=== PATIENT | female | born 1985 | race Caucasian/White ===

== ENCOUNTER 2020-10-10 07:55 | Outpatient (CLI) | payer OTHER, SELFPAY ==
--- NOTE | 2020-10-10 08:36 | EST_ITS ---
Patient Info Name: Tran Rice Age: 34 years : 1985 Gender: Female Ht: 67 in Wt: 170 lbs BSA: 1.92 m2 Exam Date: 10/10/2020 9:05 AM Exam Location: [facility] Stress Patient Status: Outpatient Admit Date: 10/10/2020 Staff Ordering Physician: Deni Mccarthy DO Attending Provider: Deni Mccarthy DO Exercise Technologist: Chrissie Childers RDCS Exercise Physician: Deni Mccarthy DO Exam Type: CA stress test treadmill Study Info Indications R07.89 - Other chest pain A treadmill exercise stress test was performed. Summary 1. 1. Negative Travis exercise stress test for ischemic ST changes by ECG criteria. 2. 2. Good functional capacity, achieving 10 METs of workload. 3. 3. Appropriate HR response to exercise. 4. 4. Appropriate HR recovery at 1 minute post exercise. 5. 5. No imaging with stress testing. 6. 6. Patient informed of the above results. Protocol: Travis Stress ECG Details Stage: REST Duration (min): 4 min : 53 sec Speed (mph): 0.0 Grade (%): 0 HR (bpm): 63 SBP (mmHg): 115 DBP (mmHg): 69 METS: --- Stage: REST Duration (min): 9 min : 50 sec Speed (mph): 0.0 Grade (%): 0 HR (bpm): 78 SBP (mmHg): 115 DBP (mmHg): 69 METS: --- Stage: STAGE 1 Duration (min): 1 min : 0 sec Speed (mph): 1.7 Grade (%): 10 HR (bpm): 110 SBP (mmHg): 115 DBP (mmHg): 69 METS: --- Stage: STAGE 1 Duration (min): 2 min : 0 sec Speed (mph): 1.7 Grade (%): 10 HR (bpm): 108 SBP (mmHg): 115 DBP (mmHg): 69 METS: --- Stage: STAGE 1 Duration (min): 3 min : 0 sec Speed (mph): 1.7 Grade (%): 10 HR (bpm): 110 SBP (mmHg): 145 DBP (mmHg): 84 METS: --- Stage: STAGE 2 Duration (min): 1 min : 0 sec Speed (mph): 2.5 Grade (%): 12 HR (bpm): 122 SBP (mmHg): 145 DBP (mmHg): 84 METS: --- Stage: STAGE 2 Duration (min): 2 min : 0 sec Speed (mph): 2.5 Grade (%): 12 HR (bpm): 128 SBP (mmHg): 138 DBP (mmHg): 57 METS: --- Stage: STAGE 2 Duration (min): 3 min : 0 sec Speed (mph): 2.5 Grade (%): 12 HR (bpm): 133 SBP (mmHg): 138 DBP (mmHg): 57 METS: --- Stage: STAGE 3 Duration (min): 1 min : 0 sec Speed (mph): 3.4 Grade (%): 14 HR (bpm): 147 SBP (mmHg): 157 DBP (mmHg): 61 METS: --- Stage: STAGE 3 Duration (min): 2 min : 0 sec Speed (mph): 3.4 Grade (%): 14 HR (bpm): 155 SBP (mmHg): 157 DBP (mmHg): 61 METS: --- Stage: STAGE 3 Duration (min): 3 min : 0 sec Speed (mph): 3.4 Grade (%): 14 HR (bpm): 160 SBP (mmHg): 136 DBP (mmHg): 73 METS: --- Stage: RECOVERY Duration (min): 0 min : 59 sec Speed (mph): 0.0 Grade (%): 0 HR (bpm): 121 SBP (mmHg): 139 DBP (mmHg): 66 METS: --- Stage: RECOVERY Duration (min): 1 min : 59 sec Speed (mph): 0.
== END 2020-10-10 07:56 | disposition home or self-care (01) ==
PROVIDERS: PCP Physician Assistant; Visit Provider Internal Medicine Cardiovascular Disease
DX: R07.89 Other chest pain (principal)
CPT/HCPCS: 93017

== ENCOUNTER 2022-09-21 19:22 | Emergency (ER) | payer OTHER, SELFPAY ==
--- NOTE | ~2022-09-21 | XR_ITS ---
EXAM: [id number] DATE: 09/21/2022 19:51 HISTORY: rt lateral knee pain x 10 days ? etiology . COMPARISON: None available. FINDINGS: Normal mineralization. No fracture or dislocation. No lytic or blastic lesion. Joint space s are maintained. No erosion or periosteal change. Soft tissues within normal limits. Small right kne e joint effusion. IMPRESSION: No acute osseous finding in the right knee. Reviewed, dictated and finalized at location K.
[2022-09-21 19:32] VITALS: BP 112/70; PULSE 68; RESP 16; TEMP 37.3; O2SAT 100
--- NOTE | 2022-09-21 20:20 | ED.GENADULT ---
HPI - General Adult General Chief complaint: Extremity Injury, Lower Stated complaint: Right Knee Pain Source: patient Mode of arrival: ambulatory Limitations: no limitations History of Present Illness HPI narrative: Patient presents for evaluation of right knee pain since 09/12/2022. She cannot identify any precipitating cause or injury. Pain is constant worse with certain movements. She feels like something is being pulled in the affected area. She rates her pain 10/10 severity. She has been taking ibuprofen 400mg for her symptoms. She does get some relief from her pain with medication. Pain is primarily in anterolateral aspect of the knee. Related Data Home Medications Medication Instructions Recorded Confirmed escitalopram oxalate 20 mg tablet 20 mg DAILY 09/21/22 09/21/22 levonorgestrel 20.4 mcg/24 hrs (8 1 device intrauterine ONCE 09/21/22 09/21/22 yrs) 52 mg intrauterine device (Liletta) Allergies Allergy/AdvReac Type Severity Reaction Status Date / Time hydrocodone Allergy Unknown Itching Verified 09/21/22 19:31 Review of Systems Review of Systems: CONSTITUTIONAL: Denies fever, chills, or sweats. EYES: Denies visual changes, redness, or discharge. ENT: Denies rhinorrhea, congestion, sore throat, or otalgia. CARDIOVASCULAR: Denies chest pain, palpitations, or edema. RESPIRATORY: Denies cough or dyspnea. GASTROINTESTINAL: Denies abdominal pain, nausea, vomiting, or diarrhea. GENITOURINARY: Denies dysuria or hematuria. SKIN: Denies rash or itching. MUSCULOSKELETAL: Reports right knee pain. Denies pain otherwise. NEUROLOGIC: Denies headache, numbness, dizziness, or weakness. PSYCHIATRIC: Denies anxiety or depression. [facility] Past Medical History Medical History Anemia DUGAN (dyspnea on exertion) Essential hypertension Surgical History Surgical History History of tonsillectomy Family History Family History Mother Family history of migraine headaches Hypertension Father Family history of hepatitis Other Diabetes mellitus Family history of cardiovascular disease Family history of cataracts Family history of obesity Social History Social History (Updated 09/21/22 @ 20:23 by Vamshi Estrada, [facility], ) Smoking status: Never smoker Alcohol intake: never Substance use: never Living arrangements: with family Gender identity (if verbalized by the patient): Female Sexual Orientation (if Verbalized by the Patient): Straight or Heterosexual Spiritual care concerns: No Exam Narrative: GENERAL: Well-appearing, well-nourished, and in no acute distress. HEAD: Normocephalic, atraumatic. EYES: PERRLA and EOMI. ENT: Nares clear, no rhinorrhea or epistaxis. Mucous membranes moist. Oropharynx without tonsillar hypertrophy exudate or other lesions. Bilateral TMs pearly medeiros nonbulging NECK: Supple. No adenopathy or masses. No carotid bruits or JVD CHEST: Clear to auscultation. No respiratory distress. No wheezes rales or rhonchi HEART: Regular rate and rhythm. No murmur heard. Normal peripheral pulses. ABDOMEN: Soft, nontender, nondistended, normal active bowel sounds. EXTREMITIES: Tenderness noted in anterolateral aspect of right knee. No crepitus or deformity. Exhibits decreased active ROM 2/2 pain. SKIN: Warm, dry, no rash. NEURO: No focal deficits. Alert and oriented x3. PSYCH: Normal mood and affect. Course Course Emergency Course: This is a 36-year-old female who presented for evaluation of right knee pain. X-ray was negative for fracture. Exam is consistent with strain. Placed in knee immobilizer. Advised on orthopedic follow-up. Advised on RICE therapy. NSAIDs for pain. She can increase ibuprofen to 800 mg p.o. t.i.d. with food. Go to ER for intractable pain. Pt
== END 2022-09-21 20:33 | disposition home or self-care (01) ==
PROVIDERS: Emergency Provider Nurse Practitioner; PCP Nurse Practitioner Family
DX: S86.911A Strain of unspecified muscle(s) and tendon(s) at lower leg level, right leg, initial encounter (principal); X58.XXXA Exposure to other specified factors, initial encounter; I10 Essential (primary) hypertension
CPT/HCPCS: 73560; 99213; G0463; L1830

== ENCOUNTER 2022-11-09 03:56 | Day surgery (SDC) | payer OTHER, SELFPAY ==
[2022-11-01 08:41] VITALS: BMI 28.4
--- NOTE | 2022-11-01 08:48 | PC.NURSE ---
Report to the Outpatient Waiting Room, entrance under the green pavilion located off [facility], at time _0930_ on date __11/09/22. Planned Procedure Time: 1130. Time changes happen often and if your time is changed the preop area will call you the afternoon before. - You and your visitor will be asked to self-screen and do not enter if you have any COVID symptoms. - A mask is optional within the hospital at this time. Patients may have clear liquids (water, carbonated beverages, clear teas, apple juice) until 3 hours prior to surgery with a maximum of 20 ounces. - No food from midnight until time of surgery - Infants may have breast milk until 4 hours before surgery, formula 6 hours prior to surgery. - Children will be allowed to drink immediately following surgery. If applicable, please bring a bottle or sippy cup to assist with drinking. Juice, water, soda, and popsicles are readily available. For infants on formula, please bring formula the day of surgery. Pacifiers are allowed. Take the following medications with a SIP of water the morning of surgery: ESCITALOPRAM DO NOT STOP ANY OF YOUR OTHER PRESCRIPTION MEDICATIONS PRIOR TO SURGERY ?EXCEPT THE FOLLOWING Medications to discontinue per physician NONE Date to take last dose Please no make-up, nail khmer, hairspray, perfume, deodorant, or body powder the day of surgery. No jewelry (including any body piercings) or valuables the day of surgery, leave them at home. Please take a shower or bath the night before, or the morning of, surgery with an antibacterial soap. Wear comfortable, loose fitting clothing. Children are encouraged to wear pajamas. - Jewelry must be removed prior to entering the operating room. Rings and piercings that are not removed may be cut off. - The hospital will not accept responsibility for valuables. - Please leave all valuables, including medications, at home the day of surgery. If you are going home after surgery, a licensed bookmobile driver must drive you home. - NO public transportation without another adult if you receive anesthesia. - We recommend that an adult stay with you for 24 hours following discharge. - We also recommend that you do not drive, make important decision, drink alcoholic beverages, or take any drugs that were not prescribed by your health care provider for at least 24 hours after your discharge time. For Pediatric surgeries, we recommend two adults accompany the child home. Follow any additional instructions given to you from your surgeon. If you or anyone in your household have experienced Covid symptoms in the past week, please notify your surgeon or the nurse liaison at the phone number below for possible testing. Telephone instructions given to PATIENT_and asked if any additional questions and then verbalized understanding. Patient advised to call surgeon office or pre surgery nurse liaison [phone] if any additional questions.
[2022-11-09] VITALS (11 sets, daily range): BP systolic 100–118; BP diastolic 64–87; PULSE 63–88; RESP 12–18; TEMP 36.3–36.7; O2SAT 94–100; BMI 28.3
--- NOTE | 2022-11-09 08:27 | WPDANESEPPF ---
Anes - Initial Pre Proc Eval Procedure: Operation Date: 11/09/22 11:30 Proposed Procedures p Right Knee Arthroscopy - Tariq Khun MD Date/Time: 11/09/22 08:27 Surgeon: Tariq Kuhn MD Pre Op Diagnosis: Rt Knee Lateral Meniscus Tear Patient Data Age: 36 Gender: F Height: 1.68 m Weight: 80 kg Allergies Allergy/AdvReac Type Severity Reaction Status Date / Time hydrocodone Allergy Unknown Itching Verified 11/09/22 10:22 Home Medications Medication Instructions Recorded Confirmed Type escitalopram oxalate 20 mg tablet 20 mg PO DAILY 09/21/22 11/09/22 History levonorgestrel 20.4 mcg/24 hrs (8 1 device intrauterine ONCE 09/21/22 11/03/22 History yrs) 52 mg intrauterine device (Liletta) tramadol 50 mg tablet 50 mg PO BID PRN pain #20 tabs 11/09/22 Rx Patient hx anesthesia problems: none Family hx anesthesia problems: none Results Review: All pre-operative results and documents have been reviewed as part of the pre-operative evaluation. [facility] Past Medical History Medical History (Updated 11/09/22 @ 08:27 by Pipe Cespedes DO) Anemia Anxiety DUGAN (dyspnea on exertion) Essential hypertension Surgical History Surgical History History of tonsillectomy Family History Family History Mother Family history of migraine headaches Hypertension Father Family history of hepatitis Other Diabetes mellitus Family history of cardiovascular disease Family history of cataracts Family history of obesity Social History Social History (Updated 11/03/22 @ 13:40 by April Randle MA) Smoking packs per day: 0.5 Smoking cigarettes per day: 10.0 Years smoked: 2 Smoking pack-years: 1.00 Smoking status: Never smoker Tobacco type: cigarettes Alcohol intake: current Alcohol use details: 2 PER MONTH Substance use: never Last use: 2011 Living arrangements: with family Gender identity (if verbalized by the patient): Female Sexual Orientation (if Verbalized by the Patient): Straight or Heterosexual Spiritual care concerns: No Anes - Eval Final PreProcedure Day of Procedure 11/09/22 08:27 Patient weight: overweight Heart: regular rate and rhythm Lungs: clear to auscultation Airway: Mallampati scale class II Neurological: alert and oriented Last oral intake: >/= 8 hours ASA classification: II Emergent: no Anesthetic plan: proceed Anesthesia type and monitoring: general LMA and standard monitoring Results Review: All pre-operative results and documents have been reviewed as part of the pre-operative evaluation. Informed Consent: The patient's anesthetic plan and its attendant risks and benefits were discussed with the patient/family/POA. Questions were solicited and answers provided to the satisfaction of the patient/family/POA.
--- NOTE | 2022-11-09 08:38 | WPDHPUPDATE1 ---
History and Physical Update Update Date/Time: 11/09/22 08:38 History and Physical has been reviewed, including an updated exam of the patient. There are NO changes in the patient's condition. Risks, benefits, and alternatives have been discussed and questions answered. Patient agrees to proceed with procedure.
[2022-11-09] MEDS: LACTATED RINGERS 1,000 ML 30 ML IV CONT ×2 (10:00→13:35)
[2022-11-09] MEDS: ACETAMINOPHEN 500 MG TABLET 1000 MG PO (10:04)
--- NOTE | 2022-11-09 10:40 | SUR.PREOP ---
1040- Notified Dr. Kuhn patient refused pre op dose of PO celebrex because she cannot swallow pill.
[2022-11-09] MEDS: ceFAZolin 2 GM/D5W 50 ML 2 GM/50 ML BAG IVPB (11:03)
[2022-11-09] MEDS: BUPivacaine HCL 0.5% 10 ML AMP 30 ML INFILTRATE (11:32)
--- NOTE | 2022-11-09 11:56 | PM.OP ---
Procedure Note - Brief Procedure Note - Brief Date of procedure: 11/09/22 Rt Knee Lateral Meniscus Tear Surgeon: Tariq Kuhn MD
--- NOTE | 2022-11-09 11:58 | W.PM.PROC2 ---
Procedure Note - Detailed Date of Procedure 11/09/22 Pre-op Diagnosis Rt Knee Lateral Meniscus Tear Post-op Diagnosis Same Procedure Performed RIGHT KNEE SCOPE Surgeon Tariq Kuhn MD Anesthesia General Description of Procedure PATIENT WAS TAKEN TO THE OR. RIGHT LEG WAS PREPPED AND DRAPED STERILE. TROCARS WERE PLACED IN THE USUAL FASHION. CAMERA WAS INTRODUCED. THERE WAS NO CHONDROMALACIA TO THE PATELLA FEMORAL JOINT. THERE WAS A LOT OF SYNOVITIS IN ALL COMPARTMENTS. THE MEDIAL COMPARTMENT SHOWED NO CHONDROMALACIA TO THE MEDIAL FEMORAL CONDYLE. THERE WAS A NO TEAR TO THE MEDIAL MENISCUS. THE ACL WAS INTACT. THE LATERAL COMPARTMENT HAD ABUNDANT SYNOVITIS. SYNOVECTOMY WAS PREFORMED. THE LATERAL MENISCUS WAS DISCOID AND TORN AT THE ANTERIOR HORN AND MID HORN. THERE WAS ALSO A TEAR TO THE POSTERIOR HORN. THE TEAR WAS RESECTED. SAUCERIZATION WAS PREFORMED TO THE DISCOID MENISCUS. THE LATERAL COMPARTMENT HAD NO CHONDROMALACIA AT THE LATERAL PLATEAU OR LATERAL FEMORAL CONDYLE. A SYNOVECTOMY WAS PREFORMED WELL. SYNOVECTOMY WAS PREFORMED IN THE SUPERIOR MEDIAL COMPARTMENT. THE WOUNDS WERE APPROXIMATED WITH 4.0 NYLON. STERILE DRESSING WAS APPLIED. PATIENT WAS EXTUBATED. Estimated Blood Loss 5 Complications No immediate complications Condition Stable Disposition PACU
[2022-11-09] MEDS: fentaNYL CITRATE INJ (*CRX) 100 MCG/2 ML VIAL 25 MCG IV PUSH ×8 (12:12→12:32)
[2022-11-09] MEDS: KETOROLAC 30 MG/ML VIAL (*BKC) IV PUSH (12:18)
[2022-11-09] MEDS: HYDROmorphone HCL INJ (*CRX) 1 MG/ML SYR 0.5 MG IV PUSH ×4 (12:40→12:55)
[2022-11-09] MEDS: ONDANSETRON INJ 4 MG/2 ML VIAL IV PUSH (13:36)
== END 2022-11-09 15:00 | disposition home or self-care (01) ==
PROVIDERS: PCP Nurse Practitioner Family; Visit Provider Orthopaedic Surgery
PROC: (CPT 29870; principal; 2022-11-09 11:30)
DX: S83.281A Other tear of lateral meniscus, current injury, right knee, initial encounter (principal); Q68.6 Discoid meniscus; M65.861 Other synovitis and tenosynovitis, right lower leg; X58.XXXA Exposure to other specified factors, initial encounter; F41.9 Anxiety disorder, unspecified
CPT/HCPCS: 29881; 29876; A9270; J0690; J1100; J1170; J1885; J2250; J2405; J2704; J3010; J7120

== ENCOUNTER 2024-08-01 10:02 | Outpatient (CLI) | payer OTHER, SELFPAY ==
--- OUTSIDE RECORDS SUMMARY | 2024-08-01 11:14 | XMS_ITS | Clinical Summary ---
Author Organization [facility] Address [address] [place] [address] Care Team Providers Care Grain Processor Name Role Phone Pema Patel Primary Care Provider [phone]- [phone] Allergies No known active allergies Medications escitalopram (LEXAPRO) 20 mg tablet Take 1 tablet (20 mg total) by mouth daily 30 tablet 6 2 Active meloxicam (MOBIC) 15 mg tablet Take 1 tablet (15 mg total) by mouth daily 30 tablet 1 3 Active Additional Information Patient not taking.Reported on 05/25/2023 fluticasone propionate (FLONASE) 50 mcg/actuation nasal spray Administer 2 sprays into each nostril daily 1 each 3 4 Active cetirizine (ZyrTEC) 10 mg tablet Take 1 tablet (10 mg total) by mouth daily as needed for allergies 90 tablet 1 4 Active meclizine (ANTIVERT) 12.5 mg tablet Take 1 tablet (12.5 mg total) by mouth 3 (three) times a day as needed for dizziness 45 tablet 4 Active Active Problems Problem Noted Date Diagnosed Date Vertigo 06/05/2023 Assessment & Plan (06/05/2023 10:32 PM SENIOR CLINICAL DATA COORDINATOR): Patient's symptoms seem most consistent with vertigo. Has been working with Cardiology and so far that workup has been completely negative. They are suggesting a tilt study. Her symptoms seem to be spinning dizziness and just feeling like quick movements trigger the symptoms. Neurologically her exam is essentially stable. Recommend meclizine p.r.n. for the dizziness. Start antihistamine, Flonase and mucinex prn. Will start physical therapy for vestibular therapy. Reassess in 4-6 weeks if symptoms persist may need to see neurologist. Diabetes mellitus screening 06/05/2023 Assessment & Plan (06/05/2023 10:31 PM SENIOR CLINICAL DATA COORDINATOR): Check labs Moderate episode of recurrent major depressive d isorder 06/05/2023 Assessment & Plan (06/05/2023 10:25 PM SENIOR CLINICAL DATA COORDINATOR): Continue Lexapro 20 Spotting during 04/11/2023 Vaginal discharge 04/11/2023 Arthralgia of right knee 03/07/2023 Rash 11/15/2022 Vitamin B12 deficiency (non anemic) 08/02/2022 Assessment & Plan (06/05/2023 10:13 PM SENIOR CLINICAL DATA COORDINATOR): Supplement Electrocardiogram abnormal 07/25/2022 Essential hypertension 07/25/2022 Assessment & Plan (06/05/2023 10:13 PM SENIOR CLINICAL DATA COORDINATOR): Bp is stable/in acceptable range for any co-morbidities. Encouraged to limit sodium intake and exercise for weight control. Has been managed without medication. Continue to monitor closely Generalized anxiety disorder 07/25/2022 Intermittent palpitations 07/25/2022 Vitamin D deficiency 07/25/2022 Assessment & Plan (06/05/2023 10:13 PM SENIOR CLINICAL DATA COORDINATOR): Supplement Acute upper respiratory infection 06/24/2022 Positive antinuclear antibody 06/06/2022 Cobalamin deficiency 06/06/2022 Leukopenia 05/26/2022 Flu vaccine need 03/14/2022 Assessment & Plan (03/14/2022 3:19 PM SENIOR CLINICAL DATA COORDINATOR): Updated in the office today Easy bruising 01/14/2022 Assessment & Plan (01/14/2022 9:07 PM CDT): Patient notes easy bruising but is not actively bleeding. Will go ahead and check labs to rule out any underlying bleeding concerns. Because location and with her having a daughter who has carried a little bit more with special needs I still wonder if there is some impact that is happening to create these bruising. She will be a little bit more alert to see if this happens. If her symptoms persist may need additional workup. IUD (intrauterine device) in place 12/28/2021 Overview (12/28/2021): Lyletta 07/2021 Assessment & Plan (01/14/2022 9:05 PM CDT): IUD in place. She is really having very minimal bleeding with her IUD. Suspected UTI 12/13/2021 Assessment & Plan (12/13/2021 10:51 PM CDT): Pt presents with dysuria. Urine dip completed. Send urine culture. Antibiotic to pharmacy. Reviewed bladder care. Abdominal pain 11/30/2021 Assessment & Plan (11/30/2021 5:18 PM CDT): We discussed potential etiologies. Advised further evaluation with labs, will notify pt of results of these as they are available. Advised reporting to the er if symptoms worsen. Anxiety 10/25/2021 Assessment & Plan (03/14/2022 3:17 PM SENIOR CLINICAL DATA COORDINATOR): Continue with Lexapro as symptoms are stable. Assessment & Plan (12/13/2021 10:51 PM CDT): Continue Lexapro 20. Refills sent to pharmacy Assessment & Plan (11/10/2021 12:41 PM CDT): The patient is noting improvement with Lexapro 10 mg. Will increase to 20 from or affect. She is tolerating without any side effects. Follow-up in 6 weeks to reassess or sooner if she has increased symptoms or problems or concerns. Assessment & Plan (10/25/2021 11:08 PM CDT): Discussed treatment options as her symptoms seem very consistent with anxiety. Has done well with Paxil in the past. Willing to try Lexapro 10 mg. Reviewed risks benefits alternatives side effects and proper use. All questions were answered. Will have her follow-up in 4-6 weeks to reassess. She is to follow-up sooner if she has increased symptoms or any suicidal or homicidal thoughts. Syncope 08/15/2021 Assessment & Plan (03/14/2022 3:17 PM SENIOR CLINICAL DATA COORDINATOR): Patient still has had presyncopal type symptoms. Was referred to residential energy auditor at her last visit but was not able to keep that appointment up in [facility] due to stressors at home. Will make referral to the [facility] Cardiology for further evaluation. Assessment & Plan (08/15/2021 2:51 PM CDT): Patient has been experiencing what may be syncopal or presyncopal events. She had stress test with Cardiology within the year but it did relieve your reveal much. The syncopal type episodes have happened after that evaluation. Her mother is having similar symptoms. Recommend further evaluation. She would like to follow-up with a residential energy auditor that her mother is seen up in [facility]. Provided a referral. Patient is going to reach out to make the appointment and contact us if further assistance is needed. If she has chest pain actually has a syncopal episode or increase in the symptoms she is to consider the ER. Annual physical exam 08/15/2021 Assessment & Plan (08/15/2021 2:51 PM CDT): Encouraged healthy lifestyle, good nutrition and exercise. Encouraged Calcium and Vitamin D and weight bearing exercise for bone health. Reviewed immunizations Reviewed age appropirate screenings. BMI 29.0-29.9,adult 08/14/2021 Assessment & Plan (06/05/2023 10:11 PM SENIOR CLINICAL DATA COORDINATOR): Weight/BMI is in healthy range. Continue healthy lifestyle to maintain. Assessment & Plan (03/14/2022 3:16 PM SENIOR CLINICAL DATA COORDINATOR): Weight/BMI is in healthy range. Continue healthy lifestyle to maintain. Assessment & Plan (08/14/2021 8:24 AM CDT): Weight/BMI is in healthy range. Continue healthy lifestyle to maintain. Chest pain 09/28/2020 Assessment & Plan (09/28/2020 11:21 PM CDT): EKG in the office was normal. She is not having acute chest pain. Advised if she does have acute CP/sxs she is to go to the ER> Will refer to Cardio for further evaluation/workup as needed. Dysuria 09/28/2020 Assessment & Plan (09/28/2020 11:21 PM CDT): Pt presents with dysuria. Urine dip completed. Send urine culture. Antibiotic to pharmacy. Diflucan for prophylaxis Reviewed bladder care. Fatigue 08/23/2020 Assessment & Plan (06/05/2023 10:11 PM SENIOR CLINICAL DATA COORDINATOR): Probably multifactorial. Check labs and followup to re-evaluate Assessment & Plan (01/14/2022 9:05 PM CDT): Probably multifactorial. Check labs and followup to re-evaluate Assessment & Plan (08/23/2020 7:47 PM CDT): Probably multifactorial. Check labs and followup to re-evaluate Chronic nonintractable headache 08/23/2020 Assessment & Plan (12/28/2020 5:33 PM CDT): Better since IUD removed. Wants to monitor Assessment & Plan (08/23/2020 7:47 PM CDT): Patient has appoint with neurologist in the next few weeks. Will await his recommendations. Polyhydramnios, antepartum complication 02/18/20 Supervision of high-risk of young nalinipeña igravida 10/05/2017 Overview (09/10/2021): Dating: LMP of 06/18/17 = 12w3d u/s with CRL of 5.93cm (within 2 days of LMP date)-->[facility]RA 03/25/18 A+/Imm/-/- HIV NR Antibody screen: negative H/H/P: 13.1/39.7/346 (09/03/17) CT/GC: neg/neg History of placenta abruption 10/04/2017 Overview (09/10/2021): G2 at 35 weeks with preeclampsia History of pre-eclampsia 10/04/2017 Overview (09/10/2021): G2 cystic hygroma 10/03/2017 Chlamydial infection 08/22/2017 Hypoglycemia 02/03/2012 Overview (08/06/2016): Hypoglycemia, unspecified Assessment & Plan (06/05/2023 10:11 PM SENIOR CLINICAL DATA COORDINATOR): Stressed importance of eating small meals multiple times a day to avoid low blood sugar Assessment & Plan (08/15/2021 2:50 PM CDT): Patient with a low A1c. She could be having hypoglycemic events. Encourage small meals all throughout the day and if she has 1 of these episodic events she is to check her blood sugar and blood pressure to see if there is any correlation. Assessment & Plan (08/23/2020 7:47 PM CDT): Encouraged to eating small meals. Recheck labs. Resolved Problems Problem Noted Date Diagnosed Date Resolved Date Positive depression screening 05/25/2023 06/05/2023 BMI 25.0-25.9,adult 12/13/2021 03/14/20 22 Assessment & Plan (01/14/2022 9:05 PM CDT): Weight/BMI is in healthy range. Continue healthy lifestyle to maintain. Assessment & Plan (12/13/2021 10:52 PM CDT): Weight/BMI is in healthy range. Continue healthy lifestyle to maintain. Lower respiratory infection 09/10/2021 03/14/2022 Assessment & Plan (09/10/2021 12:12 PM CDT): Will initiate doxycycline, proventil hfa q6h as needed. Advised patient to report to the er if symptoms are worsening. Cough 07/14/2021 08/15/2021 Assessment & Plan (07/14/2021 7:23 AM CDT): Patient to presume positive COVID/FLU until results are available and plan to self isolate for up to 10 days from the onset of sxs. Check COVID/FLU test thru [facility] collection site in [place]. Let pt know the newest CDC recommendations are as follows: If positive COVID: Stay home for at least 5 days and isolate from others in your home. Wear a well-fitted mask if you must be around others in your home. End isolation after 5 full days if you are fever-free for 24 hours (without the use of fever-reducing medication) and your symptoms are improving. Wear a well-fitted mask for 10 full days any time you are around others inside your home or in public. Do not go to places where you are unable to wear a mask. Avoid travel Avoid being around people who are at high risk Consider mAb or there appropriate meds depending on risk factors. If positive FLU, complete 5 day quarantine and be fever free for 24 hours without meds and may consider antiviral based on timing and risk factors. If negative, treat sxs and observe. Treat sxs with Tylenol, Cough/cold medication otc and add VitD 5,000IU daily and Zinc 50mg daily. I will also send Bethel Fraga for cough Monitor sxs and call or go to the ER if has any of the following: --trouble breathing --persistent pain or pressure in the chest --new confusion --inability to wake or stay awake -- bluish lips or face Hematuria 12/28/2020 08/15/2021 Assessment & Plan (12/28/2020 5:32 PM CDT): History of hematuria with last visit. Recheck today and if persists, may need further evaluation. Stress 12/28/2020 08/15/2021 Assessment & Plan (12/28/2020 5:34 PM CDT): Discussed treatment options including medication, behavioral interventions and counseling. She states she is doing ok right now and wants to avoid medications at this point. Call if needs assistance. BMI 27.0-27.9,adult 12/23/2020 08/15/19 22 Assessment & Plan (12/23/2020 8:41 AM CDT): Weight/BMI is in healthy range. Continue healthy lifestyle to maintain. Other chest pain 09/19/2020 09/28/2020 Annual physical exam 08/23/2020 021 Assessment & Plan (08/23/2020 7:47 PM CDT): Encouraged healthy lifestyle, good nutrition and exercise. Encouraged Calcium and Vitamin D and weight bearing exercise for bone health. Reviewed immunizations Reviewed age appropirate screenings. BMI 28.0-28.9,adult 08/20/2020 12/24/19 Assessment & Plan (09/19/2020 9:23 AM CDT): Weight/BMI is in healthy range. Continue healthy lifestyle to maintain. Assessment & Plan (08/20/2020 10:00 AM CDT): Weight/BMI is in healthy range. Continue healthy lifestyle to maintain. Immunizations Immunization Administration Dates Next Due Hep B Vaccine 07/04/2015 Hep B, Adolescent or Pediatric 02/15/2002 Hep B, Unspecified 02/16/2010,09/12/2000, 998 Influenza, Quadrivalent, Spl it, Intramuscular 01/16/2016 Influenza, Quadrivalent, Spl it, Preservative Free, Intramuscular 03/11/2022,01/20/2018 Influenza, Trivalent, IM (MDV) 07/04/2015,2010 Influenza, Unspecified 05/25/2023(Deferr ed: Patient Refused),02/01/2022,07/14/2021(Deferre d: Patient Refused),05/02/2020(Deferred: Patient Refused),01/31/2020(Deferred: Patient Refused) Tdap 01/20/2018,02/12/2010 Surgical History Surgery Date Site/Laterality Comments TONSILLECTOMY 1997 Tonsillectomy OTHER SURGICAL HISTORY 2007 : 8 hr labor KNEE ARTHROSCOPY 11/09/2022 Right Medical History Medical History Date Comments Hx Other Medical hypoglycemia Hx Other Medical vitamin d defic ency Hx Other Medical iron deficency Hx Other Medical 2007 ; Outc ome: 41 week 7 lb(s) 11 oz Male Anemia Anemia Anxiety Asthma Hypertension Family History Medical History Relation Name Comments Coronary artery disease Father Andreina nary artery disease; Other Father hepatitis; Hypertension Mother Hypertension; Thyroid disease Mother Thyroid diso rder; /Thyroid disease; Blood Clot Other Diabetes Paternal Grandmother Diabete s mellitus; Relation Name Status Comments Father Alive Mother Alive Other Paternal Grandmother Social History Tobacco Use Types Packs/Day Years Used Date Smoking Tobacco: Never Smokeless Tobacco: Never Alcohol Use Standard Drinks/Week Comments Yes 0 (1 standard drink = 0.6 oz pur e alcohol) AUDIT-C Answer Date Recorded Q1: How often do you have a drink containing alc ohol? Monthly or less 05/25/2023 Q2: How many drinks containi ng alcohol do you have on a typical day when you are drinking? 1 or 2 05/25/2023 Q3: How often do you have si x or more drinks on one occasion? 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 Not on file Not on file Not on file Obstetrics History Last Filed Vital Signs Vital Sign Reading Time Taken Comments Blood Pressure 122/78 05/25/2023 9:24 AM SENIOR CLINICAL DATA COORDINATOR Pulse 68 05/25/2023 9:24 AM SENIOR CLINICAL DATA COORDINATOR Temperature 36.9 C (98.5 F) 05/25/2023 9:24 AM SENIOR CLINICAL DATA COORDINATOR Respiratory Rate 18 12/07/2021 4:41 PM CDT Oxygen Saturation 99% 05/25/2023 9:24 AM SENIOR CLINICAL DATA COORDINATOR Inhaled Oxygen Concentration - - Weight 82.1 kg (181 lb) 05/25/2023 9:24 AM SENIOR CLINICAL DATA COORDINATOR Height 167.6 cm (5' 6 ) 05/25/2023 9:24 AM SENIOR CLINICAL DATA COORDINATOR Body Mass Index 29.21 05/25/2023 9:24 AM SENIOR CLINICAL DATA COORDINATOR Plan of Treatment Health Maintenance Due Date Last Done Comments Cervical Cancer Screening 1987 Varicella Vaccines (1 of 2 - 13+ 2-dose series) 11/27/2000 Regular Well Visit/Exam 18-64 08/14/2022 08/14/2021, 08/20/2020 Influenza Vaccine (#1) 2024 , 02/01/2022, 01/20/2018, Additional history exists Depression Screening 05/25/2024 05/25/2023, 05/25/2023, 12/28/2021, Additional history exists DTaP/Tdap/Td Vaccine (3 - Td or Tdap) 01/21/2028 01/20/2018, 02/12/2010 Hepatitis B Screening Completed 07/04/2015 , 02/16/2010, 02/15/2002, Additional history exists Hepatitis C Screening Completed 08/17/2017 HPV Vaccines Aged Out No longer eligi ble based on patient's age to complete this topic Pneumococcal vaccine <65 Aged Out No longer eligible based on patient's age to complete this topic Procedures Procedure Name Priority Date/Time Associated Diagnosis Comments HEPATITIS C ANTIBODY Routine Gen Lab 08/17/2017 10:28 AM CDT from Last 3 Months or Most Recently Relevant to Health Maintenance Results * Hepatitis C antibody (08/17/2017 10:28 AM CDT) Hep C Ab Nonreactive Nonreactive CORINNE MCDOWELL Comment: Interpretive Data Positive and greyzone results should be confirmed by a molecular method. If positive or greyzone, a second separately collected sample should be submitted for Hepatitis C Virus RNA. Detection and Quantitation by Real-Time Reverse Egg Pasteurizer-PCR.Current Interpretive data was last revised on 2016. Blood specimen (specimen) 08/17/2017 10:28 AM CDT 08/17/2017 11:38 AM CDT Narrative CORINNE SARGENT - 08/17/2017 2:17 PM CDT Cici Levine NP LAB MICROBIOLOGY - GENERAL ORDERABLES Edited Result - Final [facility] Department [place] [address] from Last 3 Months or Most Recently Relevant to Health Maintenance Insurance Care Teams Grain Processor Relationship Specialty Start Date End Date Pema Patel PA [address] [place] [address] PCP - General Internal Medicine 05/25/23
--- OUTSIDE RECORDS SUMMARY | 2024-08-01 11:14 | XMS_ITS | Referral Summary ---
Author Organization [facility] Address [address] [place] [address] Care Team Providers Care Cafe Operator Name Role Phone Pema Patel Primary Care Provider +1- [phone] Allergies No known active allergies Medications escitalopram [...] 06/05/2023 Assessment & Plan (06/05/2023 10:32 PM CHANGE MANAGEMENT FACILITATOR): Patient's symptoms seem most consistent with vertigo. [...] 06/05/2023 Assessment & Plan (06/05/2023 10:31 PM CHANGE MANAGEMENT FACILITATOR): Check labs Moderate episode of recurrent major depressive d isorder 06/05/2023 Assessment & Plan (06/05/2023 10:25 PM CHANGE MANAGEMENT FACILITATOR): Continue Lexapro 20 Spotting during 04/11/2023 Vaginal discharge 04/11/2023 Arthralgia of right knee 03/07/2023 Rash 11/15/2022 Vitamin B12 deficiency (non anemic) 08/02/2022 Assessment & Plan (06/05/2023 10:13 PM CHANGE MANAGEMENT FACILITATOR): Supplement Electrocardiogram abnormal 07/25/2022 Essential hypertension 07/25/2022 Assessment & Plan (06/05/2023 10:13 PM CHANGE MANAGEMENT FACILITATOR): Bp is stable/in acceptable range for any co-morbidities. Encouraged to limit sodium intake and exercise for weight control. Has been managed without medication. Continue to monitor closely Generalized anxiety disorder 07/25/2022 Intermittent palpitations 07/25/2022 Vitamin D deficiency 07/25/2022 Assessment & Plan (06/05/2023 10:13 PM CHANGE MANAGEMENT FACILITATOR): Supplement Acute upper respiratory infection 06/24/2022 Positive antinuclear antibody 06/06/2022 Cobalamin deficiency 06/06/2022 Leukopenia 05/26/2022 Flu vaccine need 03/14/2022 Assessment & Plan (03/14/2022 3:19 PM CHANGE MANAGEMENT FACILITATOR): Updated in the office today Easy bruising [...] 10/25/2021 Assessment & Plan (03/14/2022 3:17 PM CHANGE MANAGEMENT FACILITATOR): Continue with Lexapro as symptoms are stable. [...] 08/15/2021 Assessment & Plan (03/14/2022 3:17 PM CHANGE MANAGEMENT FACILITATOR): Patient still has had presyncopal type symptoms. Was referred to dba developer at her last visit but was not able to keep that appointment up in [facility] due to stressors at home. Will make referral to the [facility] Cardiology for further evaluation. Assessment [...] She would like to follow-up with a dba developer that her mother is seen up in [facility]. Provided a referral. Patient is going to [...] 08/14/2021 Assessment & Plan (06/05/2023 10:11 PM CHANGE MANAGEMENT FACILITATOR): Weight/BMI is in healthy range. Continue healthy lifestyle to maintain. Assessment & Plan (03/14/2022 3:16 PM CHANGE MANAGEMENT FACILITATOR): Weight/BMI is in healthy range. Continue healthy [...] 08/23/2020 Assessment & Plan (06/05/2023 10:11 PM CHANGE MANAGEMENT FACILITATOR): Probably multifactorial. Check labs and followup to [...] unspecified Assessment & Plan (06/05/2023 10:11 PM CHANGE MANAGEMENT FACILITATOR): Stressed importance of eating small meals multiple [...] onset of sxs. Check COVID/FLU test thru [facility] collection site in [place]. 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 Not on file Not on file Not on file Last Filed Vital Signs Vital Sign Reading Time Taken Comments Blood Pressure 122/78 05/25/2023 9:24 AM CHANGE MANAGEMENT FACILITATOR Pulse 68 05/25/2023 9:24 AM CHANGE MANAGEMENT FACILITATOR Temperature 36.9 C (98.5 F) 05/25/2023 9:24 AM CHANGE MANAGEMENT FACILITATOR Respiratory Rate 18 12/07/2021 4:41 PM CDT Oxygen Saturation 99% 05/25/2023 9:24 AM CHANGE MANAGEMENT FACILITATOR Inhaled Oxygen Concentration - - Weight 82.1 kg (181 lb) 05/25/2023 9:24 AM CHANGE MANAGEMENT FACILITATOR Height 167.6 cm (5' 6 ) 05/25/2023 9:24 AM CHANGE MANAGEMENT FACILITATOR Body Mass Index 29.21 05/25/2023 9:24 AM CHANGE MANAGEMENT FACILITATOR Plan of Treatment Not on file Procedures Procedure Name Priority Date/Time Associated Diagnosis [...] RNA. Detection and Quantitation by Real-Time Reverse Pipefitter Helper-PCR.Current Interpretive data was last revised on 2016. Blood specimen (specimen) 08/17/2017 10:28 AM CDT 08/17/2017 11:38 AM CDT Narrative CORINNE MCDOWELL - 08/17/2017 2:17 PM CDT Cici Levine NP LAB MICROBIOLOGY - GENERAL ORDERABLES Edited Result - Final [facility] Department [place] [address] from Last 3 Months or Most Recently Relevant to Health Maintenance Insurance [facility] Care Teams Cafe Operator Relationship Specialty Start Date End Date Pema Patel PA [address] [facility] [address] [place] [address] PCP - General Internal Medicine 05/25/23
--- OUTSIDE RECORDS SUMMARY | 2024-08-01 11:14 | XMS_ITS | Clinical Summary ---
Author Organization [facility] Address [address] [place] [address] Phone Care Team Providers Care Peoplesoft Hrms Developer Name Role Phone MC RANDALL, DORIS Primary Care Provider [phone] SANTY REED MD Unavailable [phone] Reason for Visit and Chief Complaint [Patient Encounter] Problems Includes: Problems addressed during this encounter and other active Problems All Visits Onset Date Resolved Date Provider Condition S tatus Vitamin D Deficiency 06/06/2020 MARCELLA FONTENOT PMHNP-BC LIFE SCIENCE RESEARCH ASSISTANT-BC Active Last Documented On 1 9:06AM ; [facility] Headache Syndromes 09/01/2016 CHACHA BANDA PA-C Active Last Documented On 7 9:57AM ; [facility] Tachycardia Sinus 05/07/2015 CHACHA Salvador-C Active Last Documented On 6 2:14PM ; [facility] Chronic Daily Headache 11/27/2011 GARCIA FAY RGJORJE PMHNP-BC LIFE SCIENCE RESEARCH ASSISTANT-BC Active Last Documented On 0 9:27AM ; [facility] Depression 09/10/2011 DORIS BENTLEY MD Act aneudy Last Documented On 2 10:10PM ; [facility] Vitamin B12 Deficiency 08/14/2010 KADEN FONTENOT PMHNP-BC LIFE SCIENCE RESEARCH ASSISTANT-BC Active Last Documented On 1 9:06AM ; [facility] Note: Unchanged Anemia 08/15/2009 ORTEGA PERALTA PA-C Active Last Documented On 0 9:21AM ; [facility] Note: Unchanged Plan of Treatment Pending Tests Order Diagnosis Results Due Ordering P faizan Lab VITAMIN B12 06/11/21 GARCIA MORA PMHNP-BC LIFE SCIENCE RESEARCH ASSISTANT-BC Last Documented On 2 4:43PM ; [facility] Lab VITAMIN D PANEL 06/11/21 GARCIA FONTENOT PMHNP-BC LIFE SCIENCE RESEARCH ASSISTANT-BC Last Documented On 2 4:43PM ; [facility] Assessments Includes: Assessments from this encounter No Assessments Recorded Medical Equipment - Implanted Devices Includes: Current Devices No Medical Equipment Recorded Medications Includes: Medications discussed during this encounter and other current Medications Current Medications (continue as prescribed) Mirena (52 MG) 20 MCG/24HR Intrauterine Intraute rine device 07/06/2019 Provider: Diagnosis: inserted by Dr. Moran at [facility] Last Documented On 07/06/2019 9:17AM By Heide CHAHAL ; [facility] Medications Administered Includes: Administered Medications from this encounter No Administered Medications Recorded Results Includes: Results discussed during this encounter No Results Recorded For Specified Dates History of Present Illness Includes: History of Present Illness from this encounter No History of Present Illness Recorded Social History No Social History Recorded - Smoking Status Unknown Medical History Includes: Medical History addressed during this encounter No Medical History Recorded Family History Includes: Family History addressed during this encounter No Family History Recorded Review of Systems Includes: Review of Systems from this encounter No Review of Systems Recorded Mental Status Includes: Mental Status from this encounter No Mental Status Recorded Functional Status Includes: Functional Status from this encounter No Functional Status Recorded Physical Exam Includes: Physical Exam from this encounter No Physical Exam Recorded Allergies Includes: Active Allergies Substance Type Reaction Onset Date Resolved Date Statu s Vicodin Allergy Skin Rashes / Er uption of skin, Hives / Urticaria 09/22/2011 Active Last Documented On 1 2:23PM ; [facility] traMADol HCl Intolerance Sleeplessness / Insomnia 09/01/2016 Active Last Documented On 1 2:23PM ; [facility] Fioricet Intolerance dizzy 10/06/2016 Active Last Documented On 1 2:23PM ; [facility] Encounters Encounter Provider Location Date Check-In Time Check-Out Time Diagnosis [Patient Encounter] GARCIA FONTENOT PMHNP-BC LIFE SCIENCE RESEARCH ASSISTANT-BC 06/12/2020 1:44PM 11:59PM Insurance Includes: Active Insurance Policies Plan Name Member ID Group # Subscriber Relationship Effect aneudy Dates 1 - [facility] [id number] KENZIE GANDHI Self Clinical Notes Includes: Clinical Notes from this encounter No Clinical Notes Recorded
--- OUTSIDE RECORDS SUMMARY | 2024-08-01 11:15 | XMS_ITS | Clinical Summary ---
Author Organization [facility] Address [address] [place] [address] Phone Care Team Providers Care Robotic Technician Name Role Phone Dulce Boss MD Primary Care Provider [phone] Allergies No known active allergies Medications azithromycin (ZITHROMAX Z-PIOTR) 250 MG Tablet 2 tab(s) daily for 1 day, then 1 tab(s) daily for days 2-5. 6 Tab 03/22/2017 Active methylPREDNISol one (MEDROL DOSPACK) 4 MG Tablet Therapy Pack See product package insert for dosing schedule 21 Tab 03/22/2017 Active ketorolac (TORADOL) 10 MG Tablet Take 1 Tab by mouth every 6 hours as needed for Pain. 10 Tab 03/22/2017 Active Social History Tobacco Use Types Packs/Day Years Used Date Smoking Tobacco: Never Smokeless Tobacco: Never Alcohol Use Standard Drinks/Week Comments No 0 (1 standard drink = 0.6 oz pur e alcohol) Education Answer Date Recorded What is the highest level of school you have completed or the highest degree you have received? Associate degree: academic program 06/04/2020 Comments No Sex and Gender Information Value Date Recorded Sex Assigned at Not on file Legal Sex Female 9:42 PM CDT Gender Identity Not on file Sexual Orientation Not on file Last Filed Vital Signs Vital Sign Reading Time Taken Comments Blood Pressure 106/62 03/22/2017 6:00 PM SEMICONDUCTOR PROCESSING GROUP LEADER Pulse 65 03/22/2017 6:15 PM SEMICONDUCTOR PROCESSING GROUP LEADER Temperature 37.2 C (98.9 F) 03/22/2017 6:27 PM SEMICONDUCTOR PROCESSING GROUP LEADER Respiratory Rate 18 03/22/2017 4:59 PM SEMICONDUCTOR PROCESSING GROUP LEADER Oxygen Saturation 100% 03/22/2017 6:15 PM SEMICONDUCTOR PROCESSING GROUP LEADER Inhaled Oxygen Concentration - - Weight 72.6 kg (160 lb) 03/22/2017 4:59 PM SEMICONDUCTOR PROCESSING GROUP LEADER Height 170.2 cm (5' 7 ) 03/22/2017 4:59 PM SEMICONDUCTOR PROCESSING GROUP LEADER Body Mass Index 25.06 03/22/2017 4:59 PM SEMICONDUCTOR PROCESSING GROUP LEADER Plan of Treatment Health Maintenance Due Date Last Done Comments Hepatitis C Virus (HCV) Screening 1985 Influenza Immunization (#1) 01/01/202401/01, 01/16/2016, 07/04/2015 SARS-COV-2 Immunization ( season) 2024 Respiratory Syncytial Virus (RSV) Immunization (Adult) (1 - 1-dose 75+ series) 11/27/2062 Hepatitis B Immunization Completed 016, 02/16/2010, 02/15/2002, Additional history exists DTaP/Tdap/Td Immunization Discontinued 01/20/2018, TdaP Immunization Completed 01/20/2018, 02/12/2010 Meningococcal Immunization (ACWY) Aged Out No longer eligible based on patient's age to complete this topic Pneumococcal Immunization Combined Aged Out No longer eligible based on patient's age to complete this topic Rotavirus Immunization Aged Out No lo nger eligible based on patient's age to complete this topic Insurance MEDICAID [employer] Care Teams Robotic Technician Relationship Specialty Start Date End Date Elving, Dulce, MD [address] [place], [place] [id number] PCP - General 04/02/15
--- OUTSIDE RECORDS SUMMARY | 2024-08-01 11:15 | XMS_ITS | Continuity of Care Document ---
Author Organization [facility] Address [address] [place] [address] [address] Phone Care Team Providers Care Stone And Plate Preparer Apprentice Name Role Phone Emigdio Olivo MD Unavailable [...] Diagnoses Date Provider Providers Copied on Encounter [facility], [address] [place] [address] [address], , [id number], [place] tel:[phone] SEC [place] Professional a comprehensiv e exam (chief complaint) CORNEAL DSDR CONTCT LENSCORNEAL PANNUS 2 Geovani Beal. [address], [address] [place], [place], [id number], [place]. tel:[phone] [facility], [address] [place] [address] [address], , [id number], tel:[phone] SEC [facility] No Information [address] Ramya Wyatt. [address], [place], [address], [place]. tel:[phone] Family History Family Member Type Diagnosis Age At Onset Paternal grandmother Problem (finding) Diabetes mellit us Problem (finding) Maternal grandmother Problem (finding) glaucoma Payers Payer name Insurance type Covered republican ID Authoriza tion(s) Medicaid [facility] [id number] Social History Type Description Quantity Date Captured Comments Alcohol Use Details Caffeine Use Details Tobacco Use Status Smoking Status No Information Sex Female Chief Complaint And Reason For Visit From encounter dated '01/18/2012 14:45'. a comprehensive exam (chief complaint) Reason For Referral Reason For Referral No [...]
--- OUTSIDE RECORDS SUMMARY | 2024-08-01 11:15 | XMS_ITS ---
Care Plan - [facility] Created on: August 01, 2024 KENZIE GANDHI Meghana : 1985 Sex: Female Author Organization [facility] Address [address] [place] [address] Phone Care Team Providers Care Front Desk Coordinator Name Role Phone MC RANDALL, DORIS Primary Care Provider [phone] BRIANNA RANDALL, SANTY Karimi Unavailable [phone]
--- OUTSIDE RECORDS SUMMARY | 2024-08-01 11:15 | XMS_ITS | Clinical Summary ---
Author Organization [facility] Address [address] [place] [address] Phone Care Team Providers Care Order Analyst Name Role Phone MC RANDALL, DORIS Primary Care Provider [phone] SANTY REED MD Unavailable [phone] Reason for Visit and Chief Complaint RX ISSUE/REFILL Problems Includes: Problems addressed during this encounter and other active Problems All Visits Onset Date Resolved Date Provider Condition S tatus Vitamin D Deficiency 06/06/2020 MARCELLA FONTENOT PMHNP-BC MECHANIC AND WELDER-BC Active Last Documented On 1 9:06AM ; [facility] Headache Syndromes 09/01/2016 CHACHA BANDA PA-C Active Last Documented On 7 9:57AM ; [facility] Tachycardia Sinus 05/07/2015 CHACHA Salvador-Katie Active Last Documented On 6 2:14PM ; [facility] Chronic Daily Headache 11/27/2011 GARCIA FAY RGRAPATRICIA PMHNP-BC MECHANIC AND WELDER-BC Active Last Documented On 0 9:27AM ; [facility] Depression 09/10/2011 DORIS BENTLEY MD Act aneudy Last Documented On 2 10:10PM ; [facility] Vitamin B12 Deficiency 08/14/2010 KADEN FONTENOT PMHNP-BC MECHANIC AND WELDER-BC Active Last Documented On 1 9:06AM ; [facility] Note: Unchanged Anemia 08/15/2009 ORTEGA PERALTA PA-C Active Last Documented On 0 9:21AM ; [facility] Note: Unchanged Plan of Treatment No Plan of Treatment Recorded Assessments Includes: Assessments from this encounter No Assessments Recorded Medical Equipment - Implanted Devices Includes: Current Devices No Medical Equipment Recorded Medications Includes: Medications discussed during this encounter and other current Medications Current Medications (continue as prescribed) Mirena (52 MG) 20 MCG/24HR Intrauterine Intraute rine device 07/06/2019 Provider: Diagnosis: inserted by Dr. Moran at [facility] Last Documented On 07/06/2019 9:17AM By Heide CHAHAL ; [facility] Medications Administered Includes: Administered Medications from [...] Active Last Documented On 1 2:23PM ; [facility] traMADol HCl Intolerance Sleeplessness / Insomnia 09/01/2016 Active Last Documented On 1 2:23PM ; [facility] Fioricet Intolerance dizzy 10/06/2016 Active Last Documented On 1 2:23PM ; [facility] Encounters Encounter Provider Location Date Check-In Time Check-Out Time Diagnosis RX ISSUE/REFILL GARCIA [place] FONTENOT PMHNP-BC MECHANIC AND WELDER-BC 06/10/2020 9:27AM 11:59PM Insurance Includes: Active Insurance Policies Plan Name Member ID Group # Subscriber Relationship Effect aneudy Dates 1 - [place] [employer] [facility] [id number] KENZIE GANDHI Self Clinical Notes Includes: Clinical Notes from this encounter No Clinical Notes Recorded
--- OUTSIDE RECORDS SUMMARY | 2024-08-01 11:15 | XMS_ITS | CONTINUITY OF CARE DOCUMENT ---
Author Name presleydeisy presleydeisy Address Unknown Organization [facility] Address [address] [place] [address] Phone [phone] Care Team Providers Care Nutter Up Name Role Phone Missael Stark MD Unavailable [phone] Missael Stark MD Unavailable [phone] JANETT GRAY Unavailable [phone] PROBLEMS Condition Status Date Provider Notes Cardiovascular screening active Alessia Cevallos PAC active Pastora Snow PVC active Pastora Snow Shortness of breath active Missael Stark MD Syncope active Missael Stark MD Palpitations active Missael Stark MD ENCOUNTERS Date Type Provider Location Encounter Diag nosis - In-person encounter Office Visit Missael Stark MD [place] [facility] - In-person encounter Office Visit Missael Stark MD [facility] - In-person encounter Office Visit Missael Stark MD [place] [facility] PVCPAC - In-person encounter Office Visit Missael Stark MD [place] [facility] PalpitationsSyncopeShortness of breath VITAL SIGNS Date Observation Value Provider Body Mass Index (Ratio) 28.35 kg/m2 Grah am Iraida blood pressure, cuff size regular Ja rret blood pressure, diastolic 73 mm[Hg] Ja rret blood pressure, systolic 109 mm[Hg] Radha servin pulse rate 68 /min Terrance oxygen saturation, oximetry 99 % Terrance respiratory rate E&M 12 /min Terrance weight E&M 181 [lb_av] height E&M 67 [in_i] Terrance y Body Mass Index (Ratio) 28.03 kg/m2 Griselad Whyte blood pressure, cuff size regular [facility] blood pressure, diastolic 70 mm[Hg] Ke [facility] blood pressure, systolic 100 mm[Hg] Deborah ri [facility] oxygen saturation, oximetry 98 % [facility] respiratory rate E&M 12 /min Sherice [facility] pulse rate 74 /min Sherice Anastasiae formerly named [facility] weight E&M 179 [lb_av] Sherice Anastasiae formerly named [facility] height E&M 67 [in_i] Sherice Anastasiae formerly named [facility] Body Mass Index (Ratio) 27.25 kg/m2 Maya Snow respiratory rate E&M 18 /min Natasha Kincaid blood pressure, diastolic 78 mm[Hg] kunal Kincaid blood pressure, systolic 110 mm[Hg] She cyndy Kincaid pulse rate 67 /min Natasha Kincaid oxygen saturation, oximetry 99 % Natasha Kincaid blood pressure, cuff size regular kunal Kincaid weight E&M 174 [lb_av] Natasha Kincaid height E&M 67 [in_i] Natasha Kincaid Body Mass Index (Ratio) 27.09 kg/m2 Maya Snow blood pressure, diastolic 76 mm[Hg] Grace perryLogjustine blood pressure, systolic 106 mm[Hg] Danielle Lorenzoogjustine blood pressure, diastolic 76 mm[Hg] St borja Sameer blood pressure, systolic 106 mm[Hg] Brent wright Sameer oxygen saturation, oximetry 99 % Magalis Sameer pulse rate 71 /min Magalis Sameer height E&M 67 [in_i] Magalis Sameer respiratory rate E&M 24 /min Magalis Mendoza gloria weight E&M 173 [lb_av] Magaliskyle Estrella ALLERGIES No Known Drug Allergies HISTORY OF MEDICATION USE Medication Status Instructions Dates Provider Indications Com ments escitalopram oxalate 20 mg tablet active Magaliskyle Estrella SOCIAL HISTORY Date Observation Value Provider smoking status Never smoker Missael Mendoza social history reviewed E&M revi ewed - no changes required Missael Stark MD social history E&M S moking History: Kristie bernabe has never smoked. Cyn Lyonsany social history reviewed E&M revi ewed - no changes required Cyn Lyonsany cigarette use yes Cyn Lyonsany smoking status Never smoker Cyn Whyte social history E&M S moking History: Kristie bernabe has never smoked. Missael Stark MD social history reviewed E&M revi ewed - no changes required Missael Stark MD smoking status Never smoker Natasha Codi social history E&M S moking History: Kristie bernabe is a former smoker. Pastora Snow social history reviewed E&M revi ewed - no changes required Pastora Snow cigarette use yes Magaliskyle Estrella smoking status Former smoker Magalis Estrella INSURANCE PROVIDERS Payer name Policy type / Coverage type [facility] ID [employer] (2) Medicaid [id number] ADVANCE DIRECTIVES Name Date DISCUSSED - NO DECISION MADE TREATMENT PLAN Date Name Performer [id number],S,no episodes s mary last visit Missael Stark MD [id number],S, E cho and carotid duplex are normal. Telesentry showed rare PVCs and PACs. She did not have any further episodes since last visit. If she has any more episodes, we will consider ILR Missael Stark MD [id number],S,P t had 1 syncopal episode in October 2022. She felt she was about to fall and laid down on the bed. Everything went black and then she recovered. We discussed ILR today and she does not want to have one. We will reconsider if the frequency changes. Missael Stark MD [id number],S,T he pt had another episode of near syncope while at the orthopedic office. They did not check HR or BP so we are still not sure of etiology. Will continue to monitor her. Since the episodes are rare, we will not procede to ILR. She is cleared for orthopedic surgery from floor technician standpoint. Cyn Whyte [id number],C,E cho and carotid duplex are normal. Telesentry showed rare PVCs and PACs. She did not have any further episodes since last visit. If she has any more episodes, we will consider ILR Pastora Snow [id number],C,E cho and carotid duplex are normal. Telesentry showed rare PVCs and PACs. She did not have any further episodes since last visit. If she has any more episodes, we will consider ILR Missael Stark MD [id number],C,E cho and carotid duplex are normal. Telesentry showed rare PVCs and PACs. She did not have any further episodes since last visit. If she has any more episodes, we will consider ILR Missael Stark MD [id number],C,P t complaining of syncope, near syncope, she feels as if a black curtain is coming down. Associated with palpitations and SOB. CT coronary calcium score was 0 last year. Will obtain echo, carotid duplex, and 24 hour holter. Pastora Snow [id number],C,P t complaining of syncope, near syncope, she feels as if a black curtain is coming down. Associated with palpitations and SOB. CT coronary calcium score was 0 last year. Will obtain echo, carotid duplex, and 24 hour holter. Pastora Snow [id number],C,P t complaining of syncope, near syncope, she feels as if a black curtain is coming down. Associated with palpitations and SOB. CT coronary calcium score was 0 last year. Will obtain echo, carotid duplex, and 24 hour holter. Pastora Snow Cardiology:no episodes since las t visit Missael Stark MD Cardiology: E cho and carotid duplex are normal. Telesentry showed rare PVCs and PACs. She did not have any further episodes since last visit. If she has any more episodes, we will consider ILR Missael Stark MD Cardiology:Pt had 1 syncopal episode in October 2022. She felt she was about to fall and laid down on the bed. Everything went black and then she recovered. We discussed ILR today and she does not want to have one. We will reconsider if the frequency changes. Missael Stark MD Cardiology:The pt orantes d another episode of near syncope while at the orthopedic office. They did not check HR or BP so we are still not sure of etiology. Will continue to monitor her. Since the episodes are rare, we will not procede to ILR. She is cleared for orthopedic surgery from floor technician standpoint. Cyn Lyonsany Cardiology:Echo and carotid duplex are normal. Telesentry showed rare PVCs and PACs. She did not have any further episodes since last visit. If she has any more episodes, we will consider ILR Pastora Snow Cardiology:Echo and carotid duplex are normal. Telesentry showed rare PVCs and PACs. She did not have any further episodes since last visit. If she has any more episodes, we will consider GILDARDO Stark MD Cardiology:Echo and carotid duplex are normal. Telesentry showed rare PVCs and PACs. She did not have any further episodes since last visit. If she has any more episodes, we will consider GILDARDO Stark MD Cardiology:Pt compla ining of syncope, near syncope, she feels as if a black curtain is coming down. Associated with palpitations and SOB. CT coronary calcium score was 0 last year. Will obtain echo, carotid duplex, and 24 hour holter. Pastora Snow Cardiology:Pt compla ining of syncope, near syncope, she feels as if a black curtain is coming down. Associated with palpitations and SOB. CT coronary calcium score was 0 last year. Will obtain echo, carotid duplex, and 24 hour holter. Pastora Snow Cardiology:Pt compla ining of syncope, near syncope, she feels as if a black curtain is coming down. Associated with palpitations and SOB. CT coronary calcium score was 0 last year. Will obtain echo, carotid duplex, and 24 hour holter. Pastora Snow Date Name Holter Monitor 24 Hr Carotid Duplex Bilat eral Complete Echo CT, Coronary Calcium Score HISTORY OF PROCEDURES Procedure Date Procedure Name Provider Procedure Notes S tatus EKG Missael Stark MD completed CT- Coronary CA score Gomez Bowens MD completed
--- OUTSIDE RECORDS SUMMARY | 2024-08-01 11:15 | XMS_ITS ---
Author Organization [facility] Address [address] [place] [address] Phone Care Team Providers Care Glassware Selector Name Role Phone MC RANDALL, DORIS Primary Care Provider [phone] SANTY REED MD Unavailable [phone] Problems Includes: Active, inactive, and resolved Problems All Visits Onset Date Resolved Date Provider Condition S tatus Vitamin D Deficiency 06/06/2020 MARCELLA FONTENOT PMHNP-BC CASH TELLER-BC Active Last Documented On 1 9:06AM ; [facility] Headache Syndromes 09/01/2016 CHACHA BANDA PA-C Active Last Documented On 7 9:57AM ; [facility] Tachycardia Sinus 05/07/2015 CHACHA Flowers A-C Active Last Documented On 6 2:14PM ; [facility] Chronic Daily Headache 11/27/2011 GARCIA FAY RGJORJE PMHNP-BC CASH TELLER-BC Active Last Documented On 0 9:27AM ; [facility] Depression 09/10/2011 DORIS BENTLEY MD Act aneudy Last Documented On 2 10:10PM ; [facility] Vitamin B12 Deficiency 08/14/2010 KADEN FONTENOT PMHNP-BC CASH TELLER-BC Active Last Documented On 1 9:06AM ; [facility] Note: Unchanged Anemia 08/15/2009 ORTEGA PERALTA PA-C Active Last Documented On 0 9:21AM ; [facility] Note: Unchanged Plan of Treatment Findings Encounter Date Ordered follow-up visit in 4 months [facility] K UP with GARCIA FONTENOT PMHNP-BC CASH TELLER-BC 07/18/2020 Last Documented On 1 3:29PM ; [facility] Ordered return to the clinic if condition worsens or new symptoms arise CHECK UP with GARCIA FONTENOT PMHNP-BC CASH TELLER-BC 07/18/2020 Last Documented On 1 3:29PM ; [facility] Ordered follow-up visit in 1 month PROBL EM VISIT with GARCIA FONTENOT PMHNP-BC CASH TELLER-BC 06/06/2020 Last Documented On 1 9:26AM ; [facility] Ordered return to the clinic if condition worsens or new symptoms arise PROBLEM VISIT with GARCIA FONTENOT PMHNP-BC CASH TELLER-BC 06/06/2020 Last Documented On 1 9:26AM ; [facility] Ordered follow-up visit in 1 month PROBL EM VISIT with GARCIA FONTENOT PMHNP-BC CASH TELLER-BC 07/06/2019 Last Documented On 0 9:56AM ; [facility] Ordered return to the clinic if condition worsens or new symptoms arise PROBLEM VISIT with GARCIA FONTENOT PMHNP-BC CASH TELLER-BC 07/06/2019 Last Documented On 0 9:56AM ; [facility] Ordered return to the clinic if condition worsens or new symptoms arise SICK VISIT with DORIS BENTLEY MD 05/30/2017 Last Documented On 8 1:42PM ; [facility] Ordered Clinical summary pro vided to patient . Plan discussed and patient/parent/caregiver states understanding OFFICE SURGERY with CHACHA BANDA PA-C 11/24/2016 Last Documented On 7 4:59PM ; [facility] Ordered return to the clinic if condition worsens or new symptoms arise OFFICE SURGERY with CHACHA BANDA PA-C 11/24/2016 Last Documented On 7 4:59PM ; [facility] Make an appt with the neurol ogist. Discussed trying to take the Topamax in the evening once a day for about 2 weeks and see if you can tolerate it. Can take a few weeks for your body to tolerate topamax. Imitrex as needed. Call sooner if symptoms worsen 1 MONTH CHECK with CHACHA BANDA PA-C 10/06/2016 Last Documented On 7 10:06AM ; [facility] Ordered Clinical summary pro vided to patient . Plan discussed and patient/parent/caregiver states understanding 1 MONTH CHECK with CHACHA BANDA PA-C 10/06/2016 Last Documented On 7 10:06AM ; [facility] Ordered follow-up visit as needed 1 MONTH CHECK with CHACHA BANDA PA-C 10/06/2016 Last Documented On 7 10:06AM ; [facility] Ordered return to the clinic if condition worsens or new symptoms arise 1 MONTH CHECK with CHACHA BANDA PA-C 10/06/2016 Last Documented On 7 10:06AM ; [facility] Start Topamax for prophylact ic treatment. Call sooner if symptoms worsen--discussed he have toradol here to give PROBLEM VISIT with CHACHA BANDA PA-C 09/01/2016 Last Documented On 7 10:08AM ; [facility] Ordered Clinical summary pro vided to patient . Plan discussed and patient/parent/caregiver states understanding PROBLEM VISIT with CHACHA BANDA PA-C 09/01/2016 Last Documented On 7 10:08AM ; [facility] Ordered follow-up visit 1 month PROBLEM VISIT wi th CHACHA BANDA PA-C 09/01/2016 Last Documented On 7 10:08AM ; [facility] Ordered return to the clinic if condition worsens or new symptoms arise PROBLEM VISIT with CHACHA BANDA PA-C 09/01/2016 Last Documented On 7 10:08AM ; [facility] Ordered follow-up visit in 2 weeks or sooner if symptoms worsening PROBLEM VISIT with GARCIA FONTENOT [facility] 08/13/2015 Last Documented On 6 3:49PM ; [facility] Ordered return to the clinic if condition worsens or new symptoms arise PROBLEM VISIT with GARCIA FONTENOT [facility] 08/13/2015 Last Documented On 6 3:49PM ; [facility] Ordered Clinical summary pro vided to patient . Plan discussed and patient/parent/caregiver states understanding CONSULTATION with CHACHA BANDA PA-C 07/09/2015 Last Documented On 6 11:43AM ; [facility] Ordered follow-up visit as n eeded with an office visit. Get fasting labs done anytime and will go from there. Call sooner if symptoms worsen CONSULTATION with CHACHA BANDA PA-C 07/09/2015 Last Documented On 6 11:43AM ; [facility] Ordered Clinical summary pro vided to patient . Plan discussed and patient/parent/caregiver states understanding PROBLEM VISIT with CHACHA BANDA PA-C 05/07/2015 Last Documented On 6 2:46PM ; [facility] Ordered follow-up visit as n eeded with an office visit. Ibuprofen 800mg every 8 hrs as needed. Local ice/heat to area x 20min several times a day (whichever feels better). Muscle creams--icyhot/bengay/salonpas patches. Get xray of back (written order given) Exercises and stretches for back (handout given). Start lower dose of propranolol for fast heart rate and headaches. Call sooner if symptoms worsen. May need to consider PT for back. Report to office in 3 weeks to update on status after starting propranolol---make office visit if anxiety persists--may need to add another medication PROBLEM VISIT with CHACHA BANDA PA-C 05/07/2015 Last Documented On 6 2:46PM ; [facility] Ordered patient to call if p brunam develops PROBLEM VISIT with JENAE GONZALEZ PA-C 04/02/2015 Last Documented On 5 9:43AM ; [facility] Ordered return to the clinic if condition worsens or new symptoms arise PROBLEM VISIT with JENAE GONZALEZ PA-C 04/02/2015 Last Documented On 5 9:43AM ; [facility] Ordered Clinical summary pro vided to patient PROBLEM VISIT with CHACHA BANDA PA-C 04/03/2012 Last Documented On 2 2:17PM ; [facility] Ordered follow-up visit as n eeded with an office visit. Fluids, cranberry juice, urinate often Heating pad to back--may be related. Call if sxs worsen/persist PROBLEM VISIT with CHACHA BANDA PA-C 04/03/2012 Last Documented On 2 2:17PM ; [facility] Ordered Clinical summary pro vided to patient CHECK UP with CHACHA BANDA PA-C 03/21/2012 Last Documented On 2 12:19PM ; [facility] Ordered follow-up visit as n eeded with an office visit. Labs ordered per Endo recommendation Try to see Gaye sooner than Apr 18 due to Hypoglycemic episodes. Cont decreasing caffiene intake. BP is stable. Call if sxs worsen or go to ER CHECK UP with CHACHA BANDA PA-C 03/21/2012 Last Documented On 2 12:19PM ; [facility] Ordered Clinical summary pro vided to patient PROBLEM VISIT with CHACHA BANDA PA-C 03/14/2012 Last Documented On 2 4:55PM ; [facility] Ordered follow-up visit in 1 -2 weeks w/ BP check--instructed to stop by office once this week and once next week for BP check. Cut back on caffiene slowly. Increase daily water intake. Call if sxs worsen or go to ER. Consider Holter monitor??? PROBLEM VISIT with CHACHA BANDA PA-C 03/14/2012 Last Documented On 2 4:55PM ; [facility] Wait till menses resume to s tart [place]. Use backup contraception, condoms or abstinence, from now till one month after startting [facility] GENERAL OFFICE VISIT with CLARITZA PAGE PA-C 10/30/2011 Last Documented On 2 10:34AM ; [facility] Ordered patient to call if p rehan develops SICK VISIT with DORIS BENTLEY MD 10/27/2011 Last Documented On 2 12:48AM ; [facility] Ordered a pelvic ultrasound PROBLEM VISIT with Katie MARCOSTIARA 10/22/2011 Last Documented On 2 1:51PM ; [facility] Ordered cervical Pap smear (collected) N EW PATIENT VISIT with Gunner SHAH MD 09/16/2011 Last Documented On 2 9:44AM ; [facility] Ordered follow-up visit in 1 year or as needed NEW PATIENT VISIT with Gunner SHAH MD 09/16/2011 Last Documented On 2 9:44AM ; [facility] Ordered follow-up visit as n eeded with an office visit. Prophylactic Abx given--instructed patient to see how sxs progress but if started, must finish entire course of Abx. OTC Musinex DM. Tylenol/Ibuprofen PRN. Call if sxs worsen/persist SICK VISIT with CHACHA BANDA PA-C 07/23/2011 Last Documented On 2 11:35AM ; [facility] Ordered return to the clinic if condition worsens or new symptoms arise SICK VISIT with DORIS BENTLEY MD 07/16/2011 Last Documented On 2 3:24PM ; [facility] Ordered follow-up visit as n eeded with an office visit. Keep area clean and dry. Calamine lotion/Bendryl/Claritin/Zyrtec PRN for pruritus. Call if sxs persist/worsen. Consider Cx area if rash persists PROBLEM VISIT with CHACHA BANDA PA-C 07/06/2011 Last Documented On 2 10:45AM ; [facility] Ordered follow-up visit as n eeded with an office visit. SICK VISIT with ELSI CUMMINGS PA-C 03/30/2011 Last Documented On 1 11:04AM ; [facility] Ordered follow-up visit as n eeded with an office visit.. Discussed with patient tx for hypoglycemia including eating every 2-3 hours during the day, low-glycemic foods. Patient would like to get a continuous glucose monitor PROBLEM VISIT with ORTEGA PERALTA PA-C 02/03/2011 Last Documented On 1 9:45AM ; [facility] Ordered follow-up visit as n eeded with an office visit. SICK VISIT with ORTEGA PERALTA PA-C 08/14/2010 Last Documented On 1 2:02PM ; [facility] Ordered follow-up visit 1 ye ar or as needed PERFORMANCE REPORTER EXAM with SHANNEN FREIRE 08/06/2010 Last Documented On 1 10:24AM ; [facility] Tran is agreeable to abs tain from intercourse x 2-3 days and use condoms 100 % until we can get an Implanon ordered and placed for her. I did show her the Implanon model and discussed the risks/benefits/ and procedure for insertion and the pamphlet was given. She wants to go ahead and have it ordered PROBLEM VISIT with SHANNEN HELM [facility] 06/25/2010 Last Documented On 1 9:46AM ; [facility] Await results--if worsen go to ER PROBLE M VISIT with JULIAN PEDRAZA [facility] 01/01/2010 Last Documented On 0 10:46AM ; [facility] Ordered follow-up visit 1 ye ar or as needed PERFORMANCE REPORTER EXAM with JULIAN PEDRAZA [facility] 07/25/2009 Last Documented On 0 5:56AM ; [facility] Referrals To Diagnosis Other [address] [address] - DIZZINESS AND GIDDINESS Note: continuous glucose mon itor through [facility] Last Documented On 1 10:04AM ; [facility] Neurologist BRIGITTE KEANE MD Headache Note: DR KEANE, NEXT WEEK Last Documented On 2 7:37AM ; [facility] Color Coater SEB TEJADA M.D. ANEMIA NOS Last Documented On 2 10:15AM ; [facility] Neurologist LOU CACERES MD Other headache syndrome Last Documented On 8 1:27PM ; [facility] Neurologist ALEXANDRIA CRUZ MD - ALT ON [facility] - [address] [place] [id number] Other headache syndrome Last Documented On 1 1:33PM ; [facility] Neurologist ALEXANDRIA CRUZ MD - ALT ON [facility] - [address] [place] [address] Other headache syndrome Note: Dr. Cruz Last Documented On 2 11:54AM ; [facility] Instructions to patient Return to the clinic if cond ition worsens or new symptoms arise Last Documented On 2 1:51PM ; [facility] ER/ Pain Precautions Last Documented On 2 1:51PM ; [facility] Avoid precipitating factor P T TO EAT CARB AND PROTEIN Q 2 HOURS , THIS WAS ALL WRITTEN DOWN AND EXPLAINED TO HER AND PT GIVEN HYPOGLYCEMIA H/O Last Documented On 2 9:18AM ; [facility] Maintain a symptom diary Last Documented On 2 9:18AM ; [facility] Instructions for patient : B reast Self Exam discussed Last Documented On 1 10:13AM ; [facility] Gardasil information given a nd series encouraged Last Documented On 1 10:14AM ; [facility] Instructions for patient :Ca ll if fever, pelvic pain, or heavy bleeding Last Documented On 1 9:46AM ; [facility] Instructions for patient : B reast Self Exam discussed Last Documented On 0 10:21AM ; [facility] Lose weight Last Documented On 0 10:21AM ; [facility] [place] information given a nd series encouraged Last Documented On 0 5:55AM ; [facility] Safe sex counseling Last Documented On 0 5:55AM ; [facility] Education and Decision Aids were provided during visit for: Patient education about anti biotics: need to finish even if feeling better Last Documented On 8 1:38PM ; [facility] Smoking cessation advised Last Documented On 2 9:41AM ; [facility] Patient Education: Daily rupert cium and vitamin D Last Documented On 1 10:14AM ; [facility] Patient Education: weight be aring exercise Last Documented On 1 10:14AM ; [facility] Patient Education: Daily rupert cium and vitamin D Last Documented On 0 10:21AM ; [facility] Patient Education: weight be aring exercise Last Documented On 0 10:21AM ; [facility] Seatbelt counseling Last Documented On 0 5:55AM ; [facility] Assessments Includes: Assessments for all patient encounters Findings Encounter Date Chronic Daily Headache CHECK UP with GARCIA MORALESGRAVE PMHNP-BC CASH TELLER-BC 07/18/2020 Last Documented On 1 3:29PM ; [facility] Depression with anxiety CHECK UP with GARCIA A PO PMHNP-BC CASH TELLER-BC 07/18/2020 Last Documented On 1 3:29PM ; [facility] Chronic Daily Headache PROBLEM VISIT wit h GARCIA Salvador PO PMHNP-BC CASH TELLER-BC 06/06/2020 Last Documented On 1 9:26AM ; [facility] Depression with anxiety PROBLEM VISIT wi th GARCIA Salvador PO PMHNP-BC CASH TELLER-BC 06/06/2020 Last Documented On 1 9:26AM ; [facility] Vitamin B12 deficiency PROBLEM VISIT wit h GARCIA Salvador PO PMHNP-BC CASH TELLER-BC 06/06/2020 Last Documented On 1 9:26AM ; [facility] Vitamin D deficiency PROBLEM VISIT with GARCIA Modesto PO PMHNP-BC CASH TELLER-BC 06/06/2020 Last Documented On 1 9:26AM ; [facility] Depression with anxiety PROBLEM VISIT wi th GARCIA Salvador PO PMHNP-BC CASH TELLER-BC 07/06/2019 Last Documented On 0 9:56AM ; [facility] Tension-type headache PROBLEM VISIT with GARCIA A PO PMHNP-BC CASH TELLER-BC 07/06/2019 Last Documented On 0 9:56AM ; [facility] Acute pharyngitis SICK VISIT with DORIS CLIFFORD MD 05/30/2017 Last Documented On 8 1:42PM ; [facility] Dysuria SICK VISIT with DORIS VILLAFUERTE MD 05/30/2017 Last Documented On 8 1:42PM ; [facility] Urinary tract infection SICK VISIT with DORIS BECERRIL MD 05/30/2017 Last Documented On 8 1:42PM ; [facility] Contraceptive surveillance OFFICE SURGERY with Nian BANDA PA-C 11/24/2016 Last Documented On 7 4:59PM ; [facility] Removal of IUD OFFICE SURGERY with CHACHA ALDANA-C 11/24/2016 Last Documented On 7 4:59PM ; [facility] Headache syndromes 1 MONTH CHECK with CHACHA ALDANA-C 10/06/2016 Last Documented On 7 10:06AM ; [facility] Headache syndromes PROBLEM VISIT with CHACHA ALDANA-C 09/01/2016 Last Documented On 7 10:08AM ; [facility] Depression * PHONE CALL with AGRCIA MA PMHNP-BC CASH TELLER-BC 08/26/2015 Last Documented On 6 9:07AM ; [facility] Depression * PHONE CALL with GARCIA MA HNP-BC CASH TELLER-BC 08/15/2015 Last Documented On 6 3:42PM ; [facility] Depression - possible PROBLEM VISIT with GARCIA FONTENOT PMHNP-BC CASH TELLER-BC 08/13/2015 Last Documented On 6 3:49PM ; [facility] Mild Cognitive Impairment PROBLEM VISIT with GARCIA FONTENOT HNP-BC CASH TELLER-BC 08/13/2015 Last Documented On 6 3:49PM ; [facility] Disturbance in skin or paresthesia CONSULTATION with CHACHA ALDANA-C 07/09/2015 Last Documented On 6 11:43AM ; [facility] Fatigue CONSULTATION with CHACHA ALDANA-C 07/09/2015 Last Documented On 6 11:43AM ; [facility] Screening for unspecified condition CONS ULTATION with CHACHA BANDA PA-C 07/09/2015 Last Documented On 6 11:43AM ; [facility] Lumbago PROBLEM VISIT with CHACHA ALDANA-C 05/07/2015 Last Documented On 6 2:46PM ; [facility] Sinus tachycardia PROBLEM VISIT with CHACHA ALDANA-C 05/07/2015 Last Documented On 6 2:46PM ; [facility] Lumbago PROBLEM VISIT with DORIS BOWERS MD 04/23/2015 Last Documented On 5 2:43PM ; [facility] Migraine headache PROBLEM VISIT with JENAE PAULINO PA-C 04/02/2015 Last Documented On 5 9:43AM ; [facility] Palpitations PROBLEM VISIT with JENAE ALDANA-C 04/02/2015 Last Documented On 5 9:43AM ; [facility] Migraine headache SICK VISIT with DORIS CLIFFORD MD 03/03/2015 Last Documented On 5 11:33AM ; [facility] Normal routine history and physical [employer]CHO [employer] PHYSICAL with DORIS BENTLEY MD 12/16/2014 Last Documented On 5 10:50AM ; [facility] Hydrarthrosis PROBLEM VISIT with DORIS BOWERS MD 04/27/2013 Last Documented On 3 7:55PM ; [facility] Patellar tendonitis PROBLEM VISIT with DORIS DIAZ MD 04/27/2013 Last Documented On 3 7:55PM ; [facility] Dysuria PROBLEM VISIT with CHACHA E ELIK INS PA-C 04/03/2012 Last Documented On 2 2:17PM ; [facility] PROBLEM VISIT with CHACHA E JENK INS PA-C 04/03/2012 Last Documented On 2 2:17PM ; [facility] Hypoglycemia --r/o pheochromocytoma CHECK UP wit h CHACHA BANDA PA-C 03/21/2012 Last Documented On 2 12:19PM ; [facility] CHECK UP with CHACHA Letitia BENITEZBANDA P A-C 03/21/2012 Last Documented On 2 12:19PM ; [facility] Fatigue PROBLEM VISIT with CHACHA E JENK INS PA-C 03/14/2012 Last Documented On 2 4:55PM ; [facility] Hypotension PROBLEM VISIT with CHACHA E JENK INS PA-C 03/14/2012 Last Documented On 2 4:55PM ; [facility] Acute sinusitis PROBLEM VISIT with DORIS BOWERS MD 12/28/2011 Last Documented On 2 10:37AM ; [facility] Assessment of headache PROBLEM VISIT with DORIS BENTLEY MD 12/28/2011 Last Documented On 2 10:37AM ; [facility] Chronic Daily Headache HOSPITAL FOLLOW UP EXAM w veronica DORIS BENTLEY MD 11/24/2011 Last Documented On 2 11:22PM ; [facility] Contraceptive management GENERAL OFFICE VISIT wi th CLARITZA Reji PAGE PA-C 10/30/2011 Last Documented On 2 10:34AM ; [facility] Headache syndromes GENERAL OFFICE VISIT with GENTRY Mendoza CAMILO CAAL 10/30/2011 Last Documented On 2 10:34AM ; [facility] Removal of IUD GENERAL OFFICE VISIT with GENTRYDORINA Salvador Reji PAGE PA-C 10/30/2011 Last Documented On 2 10:34AM ; [facility] Assessment of headache SICK VISIT with DORIS DIAZ MD 10/27/2011 Last Documented On 2 12:48AM ; [facility] Assessment of headache PROBLEM VISIT with DORIS BENTLEY MD 10/05/2011 Last Documented On 2 11:43PM ; [facility] Nonarticular bone disorders PROBLEM VISIT with Katie BENTLEY MD 10/05/2011 Last Documented On 2 11:43PM ; [facility] Pain in limb PROBLEM VISIT with DORIS BOWERS MD 10/05/2011 Last Documented On 2 11:43PM ; [facility] Primary insomnia PROBLEM VISIT with DORIS REDDING MD 10/05/2011 Last Documented On 2 11:43PM ; [facility] 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 PROBLEM VISIT with DORIS BENTLEY MD 10/05/2011 Last Documented On 2 11:43PM ; [facility] Assessment of headache PROBLEM VISIT with DORIS BENTLEY MD 09/22/2011 Last Documented On 2 6:33PM ; [facility] secondary amenorrhea NEW PATIENT VISIT with Gunner PAYNE MD 09/16/2011 Last Documented On 2 9:44AM ; [facility] Cervical dysplasia NEW PATIENT VISIT with Gunner SHAH MD 09/16/2011 Last Documented On 2 9:44AM ; [facility] Contraceptive surveillance NEW PATIENT VISIT wit h Gunner SHAH MD 09/16/2011 Last Documented On 2 9:44AM ; [facility] Mild cervical dysplasia (TOMAS I) By history. Resolved? NEW PATIENT VISIT with Gunner SHAH MD 09/16/2011 Last Documented On 2 9:44AM ; [facility] Normal routine history and p hysical adult NEW PATIENT VISIT with Gunner SHAH MD 09/16/2011 Last Documented On 2 9:44AM ; [facility] Depression 1 MONTH CHECK with DORIS BOWERS MD 09/10/2011 Last Documented On 2 10:12PM ; [facility] Depression 1 MONTH CHECK with DORIS BOWERS MD 08/13/2011 Last Documented On 2 8:47AM ; [facility] Upper respiratory infection SICK VISIT with RICHARD BANDA PA-C 07/23/2011 Last Documented On 2 11:35AM ; [facility] Depression SICK VISIT with DORIS VILLAFUERTE MD 07/16/2011 Last Documented On 2 3:24PM ; [facility] Open wound SICK VISIT with DORIS VILLAFUERTE MD 07/16/2011 Last Documented On 2 3:24PM ; [facility] Dermatitis PROBLEM VISIT with CHACHA BYERS PA-C 07/06/2011 Last Documented On 2 10:45AM ; [facility] Hypoglycemia RECHECK with DORIS BENTLEY MD 05/12/2011 Last Documented On 2 9:19AM ; [facility] Acute conjunctivitis of the left eye SICK VISIT with ELSI CUMMINGS PA-C 03/30/2011 Last Documented On 1 11:04AM ; [facility] Adjustment disorder with anxiety SICK VISIT with ELSI CUMMINGS PA-C 03/30/2011 Last Documented On 1 11:04AM ; [facility] Tinea pedis PROBLEM VISIT with ORTEGA PERALTA PA-C 02/03/2011 Last Documented On 1 9:45AM ; [facility] Vertigo PROBLEM VISIT with ORTEGA L PAGE PA-C 02/03/2011 Last Documented On 1 9:45AM ; [facility] Asthma SICK VISIT with ORTEGA L PAGE PA- C 01/27/2011 Last Documented On 1 2:32PM ; [facility] Backache SICK VISIT with ORTEGA L PAGE PA- C 01/27/2011 Last Documented On 1 2:32PM ; [facility] Tinea pedis ? SICK VISIT with ORTEGA L PAGE PA- C 01/27/2011 Last Documented On 1 2:32PM ; [facility] Upper respiratory infection SICK VISIT with ALL Hensley L PAGE PA-C 01/27/2011 Last Documented On 1 2:32PM ; [facility] Vitamin B12 deficiency SICK VISIT with ORTEGA L P AGE PA-C 01/27/2011 Last Documented On 1 2:32PM ; [facility] Acute bronchitis SICK VISIT with ORTEGA L PAGE PA -C 08/14/2010 Last Documented On 1 2:02PM ; [facility] Acute sinusitis SICK VISIT with ORTEGA L PAGE PA- C 08/14/2010 Last Documented On 1 2:02PM ; [facility] Vitamin B12 deficiency SICK VISIT with ORTEGA L P AGE PA-C 08/14/2010 Last Documented On 1 2:02PM ; [facility] Normal routine history and physical PERFORMANCE REPORTER EXAM wit inocente HELM NP-BC 08/06/2010 Last Documented On 1 10:24AM ; [facility] Routine pelvic exam PERFORMANCE REPORTER EXAM with SHANNEN HELM NP-BC 08/06/2010 Last Documented On 1 10:24AM ; [facility] Contraceptive surveillance [Patient Encounter] w veronica HELM NP-BC 07/16/2010 Last Documented On 1 11:23AM ; [facility] Anemia INJECTION with ORTEGA L PAGE PA-C 08/15/2009 Last Documented On 0 9:21AM ; [facility] Nausea INJECTION with ORTEGA L PAGE PA-C 08/15/2009 Last Documented On 0 9:21AM ; [facility] Vitamin B12 deficiency INJECTION with ORTEGA ALDANA-C 08/15/2009 Last Documented On 0 9:21AM ; [facility] Routine pelvic exam PERFORMANCE REPORTER EXAM with JULIAN ACEVEDO [facility] 07/25/2009 Last Documented On 0 5:56AM ; [facility] Acute pharyngitis PROBLEM VISIT with GURPREET LOZADAC 03/03/2009 Last Documented On 9 12:55AM ; [facility] Assessment of fever PROBLEM VISIT with GURPREET ALDANA-C 03/03/2009 Last Documented On 9 12:55AM ; [facility] Anemia INJECTION with ORTEGA ALDANA-C 02/12/2009 Last Documented On 9 1:51PM ; [facility] Anemia INJECTION with ORTEGA ALDANA-C 02/05/2009 Last Documented On 9 2:29PM ; [facility] Anemia PROBLEM VISIT with GURPREET ALDANA-C 01/30/2009 Last Documented On 9 12:01PM ; [facility] Fatigue GENERAL OFFICE VISIT with ORTEGA PERALTA PA-C 01/03/2009 Last Documented On 9 12:44PM ; [facility] Weight loss GENERAL OFFICE VISIT with ORTEGA ALDANA-C 01/03/2009 Last Documented On 9 12:44PM ; [facility] Instructions Includes: Instructions for all patient encounters Instructions to patient Return to the clinic if cond ition worsens or new symptoms arise Last Documented On 2 1:51PM ; [facility] ER/ Pain Precautions Last Documented On 2 1:51PM ; [facility] Avoid precipitating factor P T TO EAT CARB AND PROTEIN Q 2 HOURS , THIS WAS ALL WRITTEN DOWN AND EXPLAINED TO HER AND PT GIVEN HYPOGLYCEMIA H/O Last Documented On 2 9:18AM ; [facility] Maintain a symptom diary Last Documented On 2 9:18AM ; [facility] Instructions for patient : B reast Self Exam discussed Last Documented On 1 10:13AM ; [facility] Gardasil information given a nd series encouraged Last Documented On 1 10:14AM ; [facility] Instructions for patient :Ca ll if fever, pelvic pain, or heavy bleeding Last Documented On 1 9:46AM ; [facility] Instructions for patient : B reast Self Exam discussed Last Documented On 0 10:21AM ; [facility] Lose weight Last Documented On 0 10:21AM ; [facility] Gardasil information given a nd series encouraged Last Documented On 0 5:55AM ; [facility] Safe sex counseling Last Documented On 0 5:55AM ; [facility] Education and Decision Aids were provided during visit for: Patient education about anti biotics: need to finish even if feeling better Last Documented On 8 1:38PM ; [facility] Smoking cessation advised Last Documented On 2 9:41AM ; [facility] Patient Education: Daily rupert cium and vitamin D Last Documented On 1 10:14AM ; [facility] Patient Education: weight be aring exercise Last Documented On 1 10:14AM ; [facility] Patient Education: Daily rupert cium and vitamin D Last Documented On 0 10:21AM ; [facility] Patient Education: weight be aring exercise Last Documented On 0 10:21AM ; [facility] Seatbelt counseling Last Documented On 0 5:55AM ; [facility] Medical Equipment - Implanted Devices Includes: Current and historical Devices No Medical Equipment Recorded Medications Includes: Current and historical Medications Current Medications (continue as prescribed) Mirena (52 MG) 20 MCG/24HR Intrauterine Intraute rine device 07/06/2019 Provider: Diagnosis: [facility] Last Documented On 07/06/2019 9:17AM By Heide CHAHAL ; [facility] Past Medications on file PARoxetine HCl 10 MG Oral Tablet 07/18/2020 - 11/15/2020 Provider: GARCIA FONTENOT PMHNP-BC CASH TELLER-BC Diagnosis: Other specified anxiety disorders TAKE 1 TABLET BY MOUTH DAILY Last Documented On 1 3:29PM By GARCIA FONTENOT [facility]- ; [facility] PARoxetine HCl 10 MG Oral Tablet 07/10/2020 - 07/18/2020 Provider: GARCIA FONTENOT [facility] CASH TELLER-BC Diagnosis: Other specified anxiety disorders TAKE 1 TABLET BY MOUTH DAILY Last Documented On 1 3:28PM By GARCIA FONTENOT [facility] ; [facility] Ergocalciferol 1.25 MG (5000 0 UT) Oral Capsule 06/12/2020 - 11/27/2020 Provider: [facility] C[facility]LL[facility]-BC Diagnosis: 1 q week Last Documented On 1 1:54PM By GARCIA FONTENOT [facility]- ; [facility] BD Eclipse Syringe 25G X 5/8 3 ML Miscellaneous 06/10/2020 - 12/07/2020 Provider: GARCIA JOHNSTON [facility] CASH TELLER-BC Diagnosis: 1 syringe to be used with monthly b12 injection Last Documented On 1 1:43PM By GARCIA FONTENOT [facility] ; [facility] Cyanocobalamin 1000 MCG/ML Injection Solution 06/10/2020 - 12/07/2020 Provider: GARCIA CULLEN PMHNP-BC CASH TELLER-BC Diagnosis: 1ml IM once per month Last Documented On 1 1:39PM By GARCIA DARLINGP- ; [facility] PARoxetine HCl 10 MG Oral Tablet 06/06/2020 - 07/10/2020 Provider: GARCIA FONTENOT [facility] CASH TELLER-BC Diagnosis: Other specified anxiety disorders One tablet daily Last Documented On 1 8:27AM By GARCIA DARLINGP- ; [facility] PARoxetine HCl 10 MG Oral Tablet 08/30/2019 - 07/18/2020 Provider: GARCIA FONTENOT [facility] CASH TELLER-BC Diagnosis: Other specified anxiety disorders TAKE 1 TABLET BY MOUTH DAILY Last Documented On 1 3:06PM By GARCIA DARLINGP- ; [facility] PARoxetine HCl 10 MG Oral Tablet 07/23/2019 - 08/30/2019 Provider: GARCIA LEEP-BC CASH TELLER-BC Diagnosis: Other specified anxiety disorders One tablet daily Last Documented On 0 3:27PM By CHACHA BANDA PA-C ; [facility] PARoxetine HCl 10 MG Oral Tablet 07/06/2019 - 07/23/2019 Provider: GARCIA FONTENOT [facility] Diagnosis: Other specified anxiety disorders One tablet daily Last Documented On 0 12:37PM By GARCIA FONTENOT [facility] ; [facility] Cipro 250MG Oral Tablet 05/30/2017 - 07/06/2019 Provid er: DORIS BENTLEY MD Diagnosis: Dysuria One tablet twice a day Last Documented On 07/06/2019 9:16AM By Heide CHAHAL ; [facility] Lo Loestrin Fe 1 MG-10 MCG /10 MCG Oral Tablet 11/24/2016 - 07/06/2019 Provider: CHACHA BANDA PA-C Diagnosis: Encounter for surveillance of contraceptives, unspecified One tablet daily Last Documented On 07/06/2019 9:16AM By Heide CHAHAL ; [facility] Imitrex 25MG Oral Tablet 10/06/2016 - 07/06/2019 Provider: CHACHA BANDA PA-C Diagnosis: Other headache syndrome 1 tab PO at onset of FAY; may repeat every 2 hrs. Max 200mg/day. Generic. Last Documented On 07/06/2019 9:16AM By Heide CHAHAL ; [facility] ZyrTEC Allergy 10MG Oral Tablet 10/06/2016 - 8 Provider: Diagnosis: Last Documented On 05/30/2017 1:15PM By DAYNA CHAHAL ; [facility] Topamax 25MG Oral Tablet 09/01/2016 - 07/06/2019 Provider: CHACHA BANDA PA-C Diagnosis: Other headache syndrome 1 tab PO daily x 1 wk then i ncrease to 1 tab BID. Use generic. Last Documented On 07/06/2019 9:16AM By Heide CHAHAL ; [facility] Propranolol HCl 40 MG Tablet 12/02/2015 - 09/01/2016 Provider: DORIS BENTLEY MD Diagnosis: Other specified cardiac arrhythmias One tablet twice a day Last Documented On 7 9:50AM By CHACHA BANDA PA-C ; [facility] PARoxetine HCl 20 MG Tablet 09/30/2015 - 07/06/2019 Provider: GARCIA FONTENOT [facility] Diagnosis: Major depressive disorder, single episode, unspecified One tablet daily---Keep appo intment for further refills Last Documented On 07/06/2019 9:16AM By Heide CHAHAL ; [facility] PARoxetine HCl 20 MG Tablet 08/27/2015 - 09/30/2015 Provider: GARCIA FONTENOT [facility] Diagnosis: Major depressive disorder, single episode, unspecified One tablet daily---REPLACES EFFEXOR Last Documented On 6 3:08PM By GARCIA [facility] ; [facility] Effexor XR 37.5 MG Capsule Extended Release 24 Hour 08/15/2015 - 08/27/2015 Provider: GARCIA FONTENOT [facility] Diagnosis: Major depressive disorder, single episode, unspecified 1 capsule daily Last Documented On 6 9:06AM By GARCIA FONTENOT [facility] ; [facility] Mirena 20 MCG/24HR Intrauterine device 08/13/2015 - Provider: Diagnosis: Inserted October 2012 Last Documented On 05/30/2017 1:15PM By DAYNA LINARES [place] ; [facility] BD Eclipse Syringe 27G X 1/2 1 ML Miscellaneous (not specified) 07/14/2015 - 09/01/2016 Provider: DORIS VILLAFUERTE MD Diagnosis: for cyanocobalmin weekly injections Last Documented On 7 9:50AM By CHACHA BANDA PA-C ; [facility] Drisdol 85044 UNIT Capsule, conventional 07/14/2015 - 09/01/2016 Provider: DORIS VILLAFUERTE MD Diagnosis: as directed once weekly Last Documented On 7 9:51AM By CHACHA BANDA PA-C ; [facility] Cyanocobalamin 1000 MCG/ML Solution 07/14/2015 - 09/01/2016 Provider: DORIS VILLAFUERTE MD Diagnosis: as directed once weekly deep sq or IM for 6 weeks then monthly Last Documented On 7 9:50AM By CHACHA BANDA PA-C ; [facility] Propranolol HCl 40 MG Tablet 06/23/2015 - 12/02/2015 Provider: DORIS BENTLEY MD Diagnosis: Other specified cardiac arrhythmias 1 TABLET TWICE DAILY Last Documented On 12/02/2015 1:28PM By Agueda CHAHAL ; [facility] Propranolol HCl 40 MG Tablet 05/07/2015 - 06/23/2015 Provider: CHACHA BANDA PA-C Diagnosis: Other specified cardiac arrhythmias 1/2 tab BID x 1 week then in crease to 1 tab BID. Last Documented On 6 12:21PM By CHACHA BANDA PA-C ; [facility] Cyclobenzaprine HCl 10 MG Tablet 04/23/2015 - 07/09/2015 Provider: DORIS BENTLEY MD Diagnosis: Low back pain One tablet three times a day at least take at bedtime Last Documented On 07/09/2015 11:01AM By SUPA MORA MA ; [facility] Medrol (Silvestre) 4 MG Tablet 04/23/2015 - 05/07/2015 Provi vasyl: DORIS BENTLEY MD Diagnosis: Low back pain as directed Last Documented On 05/07/2015 1:54PM By SUPA MORA MA ; [facility] Propranolol HCl ER 60 MG Capsule, extended-release 24 hour 04/11/2015 - 07/09/2015 Provider: DORIS BENTLEY MD Diagnosis: Tachycardia, unspecified One tablet daily Last Documented On 07/09/2015 11:01AM By SUPA MORA MA ; [facility] Fiorinal 50-325-40 MG Capsule 03/03/2015 - 09/01/2016 Provider: DORIS BENTLEY MD Diagnosis: Migraine w/o aur a, not intractable, with status migrainosus as directed 1-2 Q 6 HRS PRN FAY. WG [place] Last Documented On 7 9:51AM By CHACHA BANDA PA-C ; [facility] Meloxicam 7.5 MG OR TABS 04/27/2013 - 12/16/2014 Provider: DORIS BENTLEY MD Diagnosis: PATELLAR TENDINI TIS Last Documented On 12/16/2014 10:11AM By DAYNA CHAHAL ; [facility] Zithromax Z-Silvestre 250 MG OR TABS 12/04/2012 - 04/27/2013 Provider: CHACHA BANDA PA-C Diagnosis: Take as directed. Last Documented On 3 11:45AM By CARLOS CHAHAL ; [facility] Cefadroxil 250 MG/5ML OR SUSR 12/28/2011 - 03/14/2012 Provider: DORIS BENTLEY MD Diagnosis: ACUTE SINUSITIS NOS 2 TSP BID FOR 14 DAYS Last Documented On 03/14/2012 4:30PM By DENAE CHAHAL ; [facility] Ortho Evra 150-35 MCG/24HR T D PTWK 11/24/2011 - 04/27/2013 Provider: DORIS VILLAFUERTE MD Diagnosis: ONE A WEEK FOR 3 WEEKS AND T HEN HOLD FOR ONE WEEK AND RESTART Last Documented On 3 11:45AM By CARLOS CHAHAL ; [facility] Seasonale 0.15-0.03 MG OR TABS 10/30/2011 - 11/24/2011 Provider: CLARITZA PAGE PA-C Diagnosis: OTHER FAMILY TOBY NNING ADVICE NEC Last Documented On 2 4:06PM By DORIS BENTLEY MD ; [facility] BD Insulin Syringe 27G X 1/2 1 ML MISC 10/07/2011 - 04/27/2013 Provider: DORIS VILLAFUERTE MD Diagnosis: 1 Q MO Last Documented On 3 11:42AM By CARLOS CHAHAL ; [facility] Mobic 7.5 MG OR TABS 10/05/2011 - 11/24/2011 Provider: DORIS BENTLEY MD Diagnosis: TRAUM ARTHROPATHY-ANKLE May take BIDTAKE WITH FOOD, Last Documented On 2 4:06PM By DORIS BENTLEY MD ; [facility] Ergocalciferol 1.25 MG (5000 0 UT) OR CAPS 09/29/2011 - 04/27/2013 Provider: DORIS VILLAFUERTE MD Diagnosis: 1 Q WK X 6 WKS THEN 1 Q O WK Last Documented On 3 11:45AM By CARLOS CHAHAL ; [facility] BD Insulin Syringe 27G X 1/2 1 ML MISC 09/28/2011 - 11/24/2011 Provider: DORIS VILLAFUERTE MD Diagnosis: USE TO INJECT WEEKLY FOR 4 WEEKS, THEN MONTHLY Last Documented On 2 4:07PM By DORIS BENTLEY MD ; [facility] Cyanocobalamin 1000 MCG/ML IJ SOLN 09/28/2011 - 04/27/2013 Provider: DORIS BENTLEY MD Diagnosis: B-COMPLEX DEFIC NEC INJECT 1ML EVERY MONTH AT HOME Last Documented On 3 11:44AM By CARLOS CHAHAL ; [facility] Flexeril 10 MG OR TABS 09/22/2011 - 11/24/2011 Provide r: DORIS BENTLEY MD Diagnosis: Headache Last Documented On 2 4:07PM By DORIS BENTLEY MD ; [facility] Mirena (52 MG) 20 MCG/24HR IU IUD 08/13/2011 - 012 Provider: Diagnosis: Last Documented On 2 4:07PM By DORIS BENTLEY MD ; [facility] Citalopram Hydrobromide 20 MG OR TABS 08/13/2011 - 04/27/2013 Provider: DORIS BENTLEY MD Diagnosis: DEPRESSIVE DISOR VASYL NEC Last Documented On 3 11:44AM By CARLOS CHAHAL ; [facility] Zithromax Z-Silvestre 250 MG OR TABS 07/23/2011 - 04/27/2013 Provider: CHACHA BANDA PA-C Diagnosis: ACUTE URI NOS Take as directed. Last Documented On 3 11:45AM By CARLOS CHAHAL ; [facility] Wellbutrin SR 150 MG OR TB12 07/16/2011 - 08/13/2011 Provider: DORIS BENTLEY MD Diagnosis: DEPRESSIVE DISOR VASYL NEC ONE TAB A DAY FOR 5 DAYS THE N INCREASE TO BID Last Documented On 2 8:42AM By DORIS BENTLEY MD ; [facility] Bactrim DS 800-160 MG OR TABS 07/06/2011 - 04/27/2013 Provider: CHACHA BANDA PA-C Diagnosis: DERMATITIS NOS Last Documented On 3 11:32AM By CARLOS CHAHAL ; [facility] Tobramycin Sulfate 0.3% OP SOLN 03/30/2011 - 04/27/2013 Provider: ELSI CUMMINGS PA-C Diagnosis: ACUTE CONJUNCTIV ITIS NOS 2 gtts left eye q 4 hours x 7 days Last Documented On 3 11:45AM By CARLOS CHAHAL ; [facility] Cyanocobalamin 1000 MCG/ML IJ SOLN 01/27/2011 - 04/27/2013 Provider: ORTEGA PERALTA PA-C Diagnosis: B-COMPLEX DEFIC NEC one cc injection q month at home; please provide patient with 10 needle/syringes to provide her subcu injections at home, thanks. Last Documented On 3 11:32AM By CARLOS CHAHAL ; [facility] Ketoconazole 2% EX CREA 01/27/2011 - 04/27/2013 Provider: ORTEGA PERALTA PA-C Diagnosis: Dermatophytosis Of Foot apply to affected area once daily Last Documented On 3 11:45AM By CARLOS CHAHAL ; [facility] Zithromax Z-Silvestre 250 MG OR TABS 01/27/2011 - 04/27/2013 Provider: ORTEGA Wilson Diagnosis: ACUTE URI NOS as directed Last Documented On 3 11:45AM By CARLOS CHAHAL ; [facility] ProAir HFA 108 (90 Base) MCG /ACT IN AERS 01/27/2011 - 04/27/2013 Provider: ORTEGA iWlson Diagnosis: ASTHMA NOS 2 puffs every 4-6 hours prn Last Documented On 3 11:45AM By CARLOS CHAHAL ; [facility] BD Insulin Syringe 27G X 1/2 1 ML MISC 08/15/2010 - 09/28/2011 Provider: ORTEGA Wilson Diagnosis: INJECT 1ML SUBCUTANOUS WEEKLY FOR 4 WEEKS THEN M ONTHLY Last Documented On 09/28/2011 5:01PM By ORTEGA PERALTA PA-C ; [facility] Zithromax Z-Silvestre 250 MG OR TABS 08/14/2010 - 04/27/2013 Provider: ORTEGA Wilson Diagnosis: ACUTE SINUSITIS NOS as directed Last Documented On 3 11:45AM By CARLOS CHAHAL ; [facility] Cyanocobalamin 1000 MCG/ML IJ SOLN 08/14/2010 - 09/28/2011 Provider: ORTEGA PERALTA PA-C Diagnosis: B-COMPLEX DEFIC NEC one cc injection q month at home; please provide patient with 10 needle/syringes to provide her subcu injections at home, thanks. Last Documented On 09/28/2011 5:01PM By ORTEGA PERALTA PA-C ; [facility] Implanon 68 MG SC IMPL 07/16/2010 - 08/13/2011 Provide r: Diagnosis: Last Documented On 2 8:42AM By DORIS BENTLEY MD ; [facility] metroNIDAZOLE 500 MG OR TABS 01/02/2010 - 04/27/2013 Provider: JULIAN FREIRE,CNM Diagnosis: Last Documented On 3 11:45AM By CARLOS CHAHAL ; [facility] Cipro 500 MG OR TABS 01/01/2010 - 04/27/2013 Provider: JULIAN FREIRE,CNM Diagnosis: Last Documented On 3 11:32AM By CARLOS CHAHAL ; [facility] B Complex-B12 OR TABS 01/01/2010 - 08/06/2010 Provider : Diagnosis: Last Documented On 1 10:15AM By ORTEGA CHAHAL ; [facility] Darvocet-N 100 100-650 MG OR TABS 09/09/2009 - 04/27/2013 Provider: JULIAN FREIRE,CNM Diagnosis: Last Documented On 3 11:44AM By CARLOS CHAHAL ; [facility] metroNIDAZOLE 500 MG OR TABS 08/07/2009 - 04/27/2013 Provider: JULIAN FREIRE,CNM Diagnosis: Last Documented On 3 11:45AM By CARLOS CHAHAL ; [facility] Proventil HFA 108 (90 Base) MCG/ACT IN AERS 07/25/2009 - 04/27/2013 Provider: DORIS Carter Diagnosis: Last Documented On 3 11:45AM By CARLOS CHAHAL ; [facility] Zithromax Z-Silvestre 250 MG OR TABS 03/03/2009 - 04/27/2013 Provider: GURPREET RAVI PA-C Diagnosis: ACUTE PHARYNGITI S Last Documented On 3 11:46AM By CARLOS CHAHAL ; [facility] Cyanocobalamin 1000 MCG/ML I J SOLN 02/12/2009 - 04/27/2013 Provider: ORTEGA Wilson Diagnosis: one mL IJ deep subcu once we ekly for 4 weeks then monthly; please provide patient with syringes, TB needles, and sharps box Last Documented On 3 11:32AM By CARLOS CHAHAL ; [facility] Feosol 200 (65 Fe) MG OR TABS 02/05/2009 - 04/27/2013 Provider: ORTEGA PERALTA PA-C Diagnosis: ANEMIA NOS one tab po once daily Last Documented On 3 11:45AM By CARLOS CHAHAL ; [facility] Mirena (52 MG) 20 MCG/24HR IU IUD 02/05/2009 - 011 Provider: Diagnosis: inserted in 2008 by Denae Pedraza Last Documented On 1 11:23AM By SHANNEN [facility] ; [facility] Ferrous Sulfate 325 (65 Fe) MG OR TABS 01/09/2009 - 04/27/2013 Provider: ORTEGA Wilson Diagnosis: Last Documented On 3 11:45AM By CARLOS CHAHAL ; [facility] Mirena (52 MG) 20 MCG/24HR IU IUD 01/03/2009 - 013 Provider: Diagnosis: inserted in Jun-2008 by Deb. Pedraza Last Documented On 3 11:45AM By CARLOS CHAHAL ; [facility] Doxycycline Hyclate 100 MG OR TABS 09/19/2008 - 2012 Provider: Diagnosis: Last Documented On 3 11:44AM By CARLOS CHAHAL ; [facility] Advair Diskus 100-50 MCG/DOS E IN MISC 08/22/2008 - 09/22/2011 Provider: DORIS Carter Diagnosis: Last Documented On 2 11:48AM By DORIS BENTLEY MD ; [facility] Medications Administered Includes: Administered Medications in patient's chart No Administered Medications Recorded Results Includes: Results from 08/02/2023 through 08/01/2024 No Results Recorded For Specified Dates History of Present Illness History of Present Illness not supported for this document type No History of Present Illness Recorded Social History Description Last Updated Smoking status : Never smoker 07/18/2020 Last Documented On 1 3:29PM ; [facility] Current nonsmoker 06/06/2020 Last Documented On 1 9:26AM ; [facility] Using an IUD MERINA 07/06/2019 Last Documented On 0 9:56AM ; [facility] 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 Last Documented On 6 3:49PM ; [facility] Sexually active with partners in the [facility] t year BOY FRIEND 09/16/2011 Last Documented On 2 9:44AM ; [facility] Single 09/16/2011 Last Documented On 2 9:44AM ; [facility] Exercising regularly walking 07/16/2010 Last Documented On 1 11:23AM ; [facility] 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) 07/16/2010 Last Documented On 1 11:23AM ; [facility] Not smoking 07/16/2010 Last Documented On 1 11:23AM ; [facility] The racial background is 07/16 Last Documented On 1 11:23AM ; [facility] Procedures and Surgical History Surgical History Last Updated No history of appendectomy 04/03/2012 Last Documented On 2 2:17PM ; [facility] No history of cholecystectomy 04/03/2012 Last Documented On 2 2:17PM ; [facility] No history of Loop electrode excision of cervix (LEEP) 04/03/2012 Last Documented On 2 2:17PM ; [facility] No history of total abdominal hysterecto my 04/03/2012 Last Documented On 2 2:17PM ; [facility] No history of tubal ligation 04/03/2012 Last Documented On 2 2:17PM ; [facility] No history of vaginal hysterectomy 04/03 Last Documented On 2 2:17PM ; [facility] Tonsillectomy 04/03/2012 Last Documented On 2 2:17PM ; [facility] Medical History Includes: Medical History in patient's chart Description Last Updated No heavy OTC analgesic use 07/06/2019 Last Documented On 0 9:56AM ; [facility] LMP: sporadic, mirena 07/06/2019 Last Documented On 0 9:56AM ; [facility] Asthma MILD --INHALER PRN 05/07/2015 Last Documented On 6 2:46PM ; [facility] 1 living children 03/21/2012 Last Documented On 2 12:19PM ; [facility] An allergy NKDA 03/21/2012 Last Documented On 2 12:19PM ; [facility] An HIV test was not performed 03/21/2012 Last Documented On 2 12:19PM ; [facility] Anemia B-12 INJECTIONS 03/21/2012 Last Documented On 2 12:19PM ; [facility] Contraception: iud 2-12 03/21/2012 Last Documented On 2 12:19PM ; [facility] 1 03/21/2012 Last Documented On 2 12:19PM ; [facility] History of asthma 03/21/2012 Last Documented On 2 12:19PM ; [facility] History of cervical dysplasia COLPO 2008 LOGSIL 03/21/2012 Last Documented On 2 12:19PM ; [facility] History of depression 03/21/2012 Last Documented On 2 12:19PM ; [facility] History of human papilloma v irus infection 03-22-08: + HR HPV ~1-18-08: + HPV 03/21/2012 Last Documented On 2 12:19PM ; [facility] Last pap smear date 08/23/2010 ASCUS 03/03 Last Documented On 2 12:19PM ; [facility] No exposure to a contagious disease 03/03 Last Documented On 2 12:19PM ; [facility] No history of chronic reflux esophagitis 03/21/2012 Last Documented On 2 12:19PM ; [facility] No history of dysfunctional uterine blee ding 03/21/2012 Last Documented On 2 12:19PM ; [facility] No history of ectopic 03/21/20 12 Last Documented On 2 12:19PM ; [facility] No history of irritable bowel syndrome 1 05/21/2011 Last Documented On 2 12:19PM ; [facility] No history of pelvic inflammatory diseas e 03/21/2012 Last Documented On 2 12:19PM ; [facility] No history of regional enteritis (Crohn' s ileitis) 03/21/2012 Last Documented On 2 12:19PM ; [facility] No history of urinary tract infection Last Documented On 2 12:19PM ; [facility] No recent change in medical history 03/03 Last Documented On 2 12:19PM ; [facility] Not previously diagnosed with a STD 03/03 Last Documented On 2 12:19PM ; [facility] Not taking OTC medications 03/21/2012 Last Documented On 2 12:19PM ; [facility] Para 1 03/21/2012 Last Documented On 2 12:19PM ; [facility] Previous hospitalizations TONSIL AND ADN OID AGE 12 03/21/2012 Last Documented On 2 12:19PM ; [facility] Vaginal delivery 03/21/2012 Last Documented On 2 12:19PM ; [facility] Family History Includes: Family History in patient's chart Description Last Updated Family history unchanged 06/06/2020 Last Documented On 1 9:26AM ; [facility] Maternal history of Cancer GRAND FATHER 05/30/2017 Last Documented On 8 1:42PM ; [facility] Maternal history of family medical histo ry of High Cholesterol 05/30/2017 Last Documented On 8 1:42PM ; [facility] Paternal history of cardiac problems FAT HER & GRAND PARTENTS 05/30/2017 Last Documented On 8 1:42PM ; [facility] Paternal history of family medical histo ry of high blood pressure 05/30/2017 Last Documented On 8 1:42PM ; [facility] Paternal grandmother's history of Diabet es GRANDMOTHER 08/13/2015 Last Documented On 6 3:49PM ; [facility] Paternal grandmother's history of diabet es mellitus 04/02/2015 Last Documented On 5 9:43AM ; [facility] Maternal history of Hypertension 015 Last Documented On 5 9:43AM ; [facility] Paternal history of Hepatitis C 04/02/20 15 Last Documented On 5 9:43AM ; [facility] Paternal history of diabetes mellitus pa ternal grandmother 12/16/2014 Last Documented On 5 10:50AM ; [facility] Family history of Cancer GRAND FATHER Last Documented On 2 9:44AM ; [facility] Family history of cardiac problems FATHE R & GRAND PARTENTS 09/16/2011 Last Documented On 2 9:44AM ; [facility] Family history of Diabetes GRANDMOTHER 0 09/16/2011 Last Documented On 2 9:44AM ; [facility] No family history of hypercholesterolemi a 08/06/2010 Last Documented On 1 10:24AM ; [facility] No family history of hypertension 2010 Last Documented On 1 10:24AM ; [facility] No family history of uterine cancer 10/2010 Last Documented On 1 10:24AM ; [facility] No heart disease 08/06/2010 Last Documented On 1 10:24AM ; [facility] Family medical history of high blood pre ssure 07/16/2010 Last Documented On 1 11:23AM ; [facility] Family medical history of High Cholester ol 07/16/2010 Last Documented On 1 11:23AM ; [facility] No family history of malignant female br east neoplasm 07/16/2010 Last Documented On 1 11:23AM ; [facility] No family history of malignant neoplasm of the large intestine 07/16/2010 Last Documented On 1 11:23AM ; [facility] No family history of malignant neoplasm of the ovary 07/16/2010 Last Documented On 1 11:23AM ; [facility] Review of Systems Review of Systems not supported for this document type No Review of Systems Recorded Mental Status No Mental Status Recorded Functional Status No Functional Status Recorded Physical Exam Physical Exam not supported for this document type No Physical Exam Recorded Allergies Includes: Active, inactive, and resolved Allergies Substance Type Reaction Onset Date Resolved Date Statu s Vicodin Allergy Skin Rashes / Er uption of skin, Hives / Urticaria 09/22/2011 Active Last Documented On 1 2:23PM ; [facility] traMADol HCl Intolerance Sleeplessness / Insomnia 09/01/2016 Active Last Documented On 1 2:23PM ; [facility] Fioricet Intolerance dizzy 10/06/2016 Active Last Documented On 1 2:23PM ; [facility] Insurance Includes: Active Insurance Policies Plan Name Member ID Group # Subscriber Relationship Effect aneudy Dates 1 - [facility] [id number] TRAN GANDHI Self Clinical Notes Includes: Signed Clinical Notes starting from 05/21/2022 No Clinical Notes Recorded
--- OUTSIDE RECORDS SUMMARY | 2024-08-01 11:15 | XMS_ITS | Clinical Summary ---
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 Active Last Documented On 1 9:06AM ; [facility] Headache Syndromes 09/01/2016 CHACHA BANDA PA-C Active Last Documented On 7 9:57AM ; [facility] Tachycardia Sinus 05/07/2015 CHACHA Salvador-C Active Last Documented On 6 2:14PM ; [facility] Chronic Daily Headache 11/27/2011 GARCIA FAY RGJORJE PMHNP-BC HOCKEY PLAYER-BC Active Last Documented On 0 9:27AM ; [facility] Depression 09/10/2011 DORIS BENTLEY MD Act aneudy Last Documented On 2 10:10PM ; [facility] Vitamin B12 Deficiency 08/14/2010 KADEN FONTENOT PMHNP-BC HOCKEY PLAYER-BC Active Last Documented On 1 9:06AM ; [facility] Note: Unchanged Anemia 08/15/2009 ORTEGA PERALTA PA-C Active Last Documented On 0 9:21AM ; [facility] Note: Unchanged Plan of Treatment Referrals To Diagnosis Neurologist ALEXANDRIA CRUZ MD - [facility] [address] [place] [address] Other headache syndrome Note: Dr. Cruz Last Documented On 2 11:54AM ; [facility] Assessments Includes: Assessments from this encounter No Assessments Recorded Medical Equipment - Implanted Devices Includes: Current Devices No Medical Equipment Recorded Medications Includes: Medications discussed during this encounter and other current Medications Current Medications (continue as prescribed) Mirena (52 MG) 20 MCG/24HR Intrauterine Intraute rine device 07/06/2019 Provider: Diagnosis: inserted by [facility]. Moran at [facility] Last Documented On 07/06/2019 9:17AM By Heide CHAHAL ; [facility] Medications Administered Includes: Administered Medications [...] Active Last Documented On 1 2:23PM ; [facility] traMADol HCl Intolerance Sleeplessness / Insomnia 09/01/2016 Active Last Documented On 1 2:23PM ; [facility] Fioricet Intolerance dizzy 10/06/2016 Active Last Documented On 1 2:23PM ; [facility] Encounters Encounter Provider Location Date Check-In Time Check-Out Time Diagnosis [Patient Encounter] GARCIA FONTENOT PMHNP-BC HOCKEY PLAYER-BC 10/06/2020 1:24PM 11:59PM Insurance Includes: Active Insurance Policies Plan Name Member ID Group # Subscriber Relationship Effect aneudy Dates - [facility] [id number] KENZIE GANDHI Self Clinical Notes Includes: Clinical Notes from this encounter No Clinical Notes Recorded
--- OUTSIDE RECORDS SUMMARY | 2024-08-01 11:16 | XMS_ITS | Clinical Summary ---
Author Organization 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 Headache Syndromes 09/01/2016 CHACHA BANDA PA-C Active Last Documented On 7 9:57AM ; [facility] Tachycardia Sinus 05/07/2015 CHACHA Salvador-C Active Last Documented On 6 2:14PM ; [facility] Chronic Daily Headache 11/27/2011 GARCIA FAY RGJORJE PMHNP-BC SALES SUPPORT ADVISOR-BC Active Last Documented On 0 9:27AM ; [facility] Depression 09/10/2011 DORIS BENTLEY MD Act aneudy Last Documented On 2 10:10PM ; [facility] Vitamin B12 Deficiency 08/14/2010 KADEN FONTENOT PMHNP-BC SALES SUPPORT ADVISOR-BC Active Last Documented On 1 9:06AM ; [facility] Note: Unchanged Anemia 08/15/2009 ORTEGA PERALTA PA-C Active Last Documented On 0 9:21AM ; [facility] Note: Unchanged Plan of [...] Provider: Diagnosis: inserted by Dr. Moran at [facility] Last Documented On 07/06/2019 9:17AM By Heide CHAHAL ; [facility] Medications Administered Includes: Administered Medications from this [...] Active Last Documented On 1 2:23PM ; [facility] traMADol HCl Intolerance Sleeplessness / Insomnia 09/01/2016 Active Last Documented On 1 2:23PM ; [facility] Fioricet Intolerance dizzy 10/06/2016 Active Last Documented On 1 2:23PM ; [facility] Encounters Encounter Provider Location Date Check-In Time Check-Out Time Diagnosis NO SHOW GARCIA FONTENOT PMHNP-BC SALES SUPPORT ADVISOR-BC 07/04/2020 10:00AM 11:59PM Insurance Includes: Active Insurance Policies Plan Name Member ID Group # Subscriber Relationship Effect aneudy Dates - [employer] [facility] [id number] KENZIE GANDHI Self Clinical Notes Includes: Clinical Notes from this encounter No Clinical Notes Recorded
--- OUTSIDE RECORDS SUMMARY | 2024-08-01 11:16 | XMS_ITS | Data Portability ---
Author Organization [place] [facility] [employer], Main Office Address [address] [place] [address] Care Team Providers Care Nurse Extern Name Role Phone JANETT GRAY Primary Care Provider JANETT GRAY Referring Provider [phone] Assessment Encounter Date Assessment Date Assessment LastModified by Organization Details LastModified Time 05/17/2024 05/17/2024 Assessment: Mild OSAHS, AHI = 3 Plan: The following were reviewed and explained to the patient: primary care/referral note [facility] home sleep study 05/15/24 AHI = 3 Sleep in lateral recumbent or semirecumbent position for the time being. Sleep apnea/hypopnea may be underestimated due to absent EEG recordings in a home sleep study to distinguish wakefulness state from the different sleep stages. Without EEG monitoring, Respiratory Effort-Related Arousals (RERA) could not be enumerated, resulting in further underestimation of disease severity. There could also be substantial irkse-jd-ozvzx variability in the AHI that can lead to missed diagnosis and disease severity mis-classification . General information on sleep disordered breathing and evaluation of sleep disordered breathing were covered. We discussed with the patient the impact of weight on: Sleep disordered breathing Hypertension CHAPIS Right lateral meniscus tear Right ACL tear Right vastus lateralis musculotendinous junction tear Right ruptured popliteal fossa cyst Educated the patient on sleep hygiene measures. Relaxing rituals to rest easy, understanding foods with positive and negative impact on sleep, creating a peaceful sleep environment, timing of exercise, using herbal sleep aids, and practicing sleep-friendly meditation were covered. To determine how much sleep is needed, the patient will assess where he falls on the spectrum, examine what lifestyle factors such as work schedules and stress are affecting the quality and quantity of sleep. s In general, adults need 7-9 hours of sleep. Educated the patient regarding foods that promote sleep. These include but are not limited to cherries, bananas, toast, oatmeal, and warm milk. Educated the patient regarding foods and drinks to avoid before bedtime. These include but are not limited to aged cheese, chocolate, spicy foods, tomato-based sauces, soy, ginseng tea and processed meat. Advocated influenza vaccination annually and pneumonia vaccination in 2037. Advocated weight loss through diet and exercise. Patient's ideal body weight according to height and gender is up to 140 lbs. Encouraged patient to adjust caloric intake to maintain/achieve ideal body weight, emphasizing on fruits, vegetables, whole grains, and fat-free or low-fat products. These include lean meats, poultry, fish, beans, eggs, and nuts and foods that are low in saturated fats, trans-fats, cholesterol, salt (sodium), and glycemic index. Stressed the importance of regular exercise up to the patient's capacity limits. In this case, we recommend 20 min daily walking, 2 days a week of resistance training. Patient to monitor BP daily and bring records to PCP for further management. Follow-up: as needed Not available 05/17/2024 14:36:58 Plan of Treatment Reminders Order Date Submit Date Provider Last Modified By Organization Details Last Modified Time Details Appointments Any 2024 10:30A M Chrissie Lira APRN Not available Not available Not available Any 2024 09:30A M Chrissie Lira APRN Not available Not available Not available Lab None recorded. Referral pulmonolo gist referral - Please call patient to schedule. HST results pending 2024 025 Ivonne Robertson INDUCTOR TESTER-C, [address] [facility], [address], [place], [address], 05/21/2024 16:18:37 Procedures upper endoscopy procedure (EGD) (PROC) 2023 024 [facility] (Pre-Screen), [address] [place], [address], 05/14/2024 13:58:25 Surgeries None recorded. Imaging home sleep study - Please call patient to arrange. 2024 025 [facility], [address] [place], [address], 05/16/2024 17:45:14 CT, abdomen + pelvis, w/wo contrast [email or web address] [place] [address] ([facility] Scheduling), [address] [place], [address], 02/27/2024 08:42:17 Medication Orders fluoxetin e 20 mg tablet 2024 025 [facility], [address] [facility], [place], [address], 06/18/2024 11:03:24 Bactrim DS 800 mg-160 mg tablet 2024 [id number] [address] , [place], [address], 05/16/2024 14:21:52 Diflucan 150 mg tablet [address]/[facility] #[id number], [address], [place], [address], 05/16/2024 14:21:54 propranol ol 10 mg tablet 2024 025 [id number] [address] , [place], [address], 05/10/2024 10:51:47 Patient TargetsNo targets recorded. Patient Instructions Encounter Date Encounter Id Patient Instructions Last Modified By Organization Details Last Modified Time 02/13/2024 [id number] Follow up in 3 months Tests: Referral: Recommend: Not available 02/13/2024 11:20:56 04/09/2024 [id number] PT WITH DYSPHAGI A. R/O EoE / H. PYLORI/ STRICTURE / MOTILITY D/O . RECOMMEND EGD /MBS. . Risks benefits and complications were explained to the pt. ( BLEEDING PERFORATION , INFECTION , ). PT VERBALIZES UNDERSTANDING AND IS WILLING TO PROCEDE . 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 Please call patient to schedule.HST results pending Referring Physician: Chrissie Lira, Internal Medicine, Encounter Date: 05/10/2024 Results Created Date Observation Date Name Description Value Unit Range Abnormal Flag Note LastModifiedBy Organization Detail LastModifiedTime 02/01/2002/01/2024 urina lysis , dipst ick Leukocytes (reference range: negative naveen/ l) Trace Not Available [address], [place], [address], 02/01/2024 14:10:14 02/01/2002/01/2024 urina lysis , dipst ick Nitrite (reference rage: negative mg/dl) negati ve Not Available [address] [place], [address], 02/01/2024 14:10:14 02/01/2002/01/2024 urina lysis , dipst ick Urobilinogen (reference range: 0.2-1 mg/dl) 0.2 Not Available [address], [place], [address], 02/01/2024 14:10:14 02/01/20 24 02/01/2024 urina lysis , dipst ick Protein (reference range: negative mg/dl) Negati ve Not Available [address], [place], [address], 02/01/2024 14:10:14 02/01/2002/01/2024 urina lysis , dipst ick pH (reference range: 5-7) 6.0 Not Available [address], [place], [address], 02/01/2024 14:10:14 02/01/2002/01/2024 urina lysis , dipst ick Blood (reference range: negative Jay/ l) Modera te Not Available [address], [place], [address], 02/01/2024 14:10:14 02/01/2002/01/2024 urina lysis , dipst ick Specific Sabine (reference range: 1.005-1.030) 1.005 Not Available [address] [place], [place], [address], 02/01/2024 14:10:14 02/01/20 24 02/01/2024 urina lysis , dipst ick Ketone (reference range: negative mg/dl) Negati ve Not Available [address], [place], [address], 02/01/2024 14:10:14 02/01/2002/01/2024 urina lysis , dipst ick Bilirubin (reference range: negative mg/dl) Trace Not Available [address], [place], [address], 02/01/2024 14:10:14 02/01/20 24 02/01/2024 urina lysis , dipst ick Glucose (reference range: negative mg/dl) Negati ve Not Available [facility] [address], [place], [address], 02/01/2024 14:10:14 02/01/2002/01/2024 urina lysis , dipst ick Appearance Clear Not Available [facility] [address], [place], [address], 02/01/2024 14:10:14 02/01/20 24 02/01/2024 urina lysis , dipst ick Color Dark Yellow Not Available [facility] [address], [place], [address], 02/01/2024 14:10:14 05/10/19 25 05/10/2024 urina lysis , dipst ick Leukocytes (reference range: negative naveen/ l) Trace Not Available [facility] [address], [address], 05/10/2024 10:22:45 05/10/19 25 05/10/2024 urina lysis , dipst ick Nitrite (reference rage: negative mg/dl) negati ve Not Available [facility] [address], [address], 05/10/2024 10:22:45 05/10/19 25 05/10/2024 urina lysis , dipst ick Urobilinogen (reference range: 0.2-1 mg/dl) 0.2 Not Available [facility] [address], [address], 05/10/2024 10:22:45 05/10/19 25 05/10/2024 urina lysis , dipst ick Protein (reference range: negative mg/dl) Negati ve Not Available [facility] Internal Med [facility] [address], [place], [address], 05/10/2024 10:22:45 05/10/19 25 05/10/2024 urina lysis , dipst ick pH (reference range: 5-7) 5.0 Not Available [facility] Internal [place] [address] [facility] [address], [place], [address], 05/10/2024 10:22:45 05/10/19 25 05/10/2024 urina lysis , dipst ick Blood (reference range: negative Jay/ l) Negati ve Not Available [facility] [address] [facility] [address], [place], [address], 05/10/2024 10:22:45 05/10/19 25 05/10/2024 urina lysis , dipst ick Specific Sabine (reference range: 1.005-1.030) 1.005 Not Available [facility] Internal [place] [address] [facility] [address], [place], [address], 05/10/2024 10:22:45 05/10/19 25 05/10/2024 urina lysis , dipst ick Ketone (reference range: negative mg/dl) Negati ve Not Available [facility] Internal [place] [address] [facility] [address], [place], [address], 05/10/2024 10:22:45 05/10/19 25 05/10/2024 urina lysis , dipst ick Bilirubin (reference range: negative mg/dl) Negati ve Not Available [facility] Internal Med [facility] [address] [facility] [address], [place], [address], 05/10/2024 10:22:45 05/10/19 25 05/10/2024 urina lysis , dipst ick Glucose (reference range: negative mg/dl) Negati ve Not Available [facility] Internal Med [facility] [address], [place], [address], 05/10/2024 10:22:45 05/10/19 25 05/10/2024 urina lysis , dipst ick Appearance Slight ly Cloudy Not Available [facility] Internal Med [facility] [address], [place], [address], 05/10/2024 10:22:45 05/10/19 25 05/10/2024 urina lysis , dipst ick Color Yellow Not Available [facility] Internal [facility] [address], [place], [address], 05/10/2024 10:22:45 02/15/20 24 02/14/2024 XR, abdom en + pelvi s No observ ation record ed. [facility] (Radiology) [address] [place], [address], 02/15/2024 17:31:35 05/16/19 25 05/15/2024 home sleep study No observ ation record ed. [facility] [address] [place], [address], 05/16/2024 17:45:14 07/05/19 25 07/02/2024 XR, ankle , 3 or more view No observ ation record ed. [facility] (Imaging) [address] [place], [address], 07/04/2024 15:41:33 Result Notes None recorded. Problems Name Problem SNOMED Code Status Onset Date Resolution Date Notes Provider Name and Address Organization Details Recorded Time Anti-nucl ear factor detected 917271454 Active 2022 Chrissie Lira APRN [address] [facility], [address], [place], [address] , [place] [facility] [place] [employer] 4 08:09:01 Pre-exist ing hypertens ion complicat ing , childbirt h and puerperiu m 280134659 Active Not Available [facility] 3 08:22:50 Spotting per vagina in 634362445 Completed Not Available [facility] 3 08:49:10 81231290 Completed 201711/29/2017 Not Available [facility] 3 08:49:10 Intermitt ent palpitati ons 718044072 Active 2022 Not Available [facility] 3 08:22:50 Generaliz ed anxiety disorder 90436361 Active 2022 Chrissie Lira APRN [address], [place], [address] , [employer] 4 08:09:09 Essential hypertens ion 34115951 Active 2022 Chrissie Lira APRN [address], [place], [address] , [employer] 4 08:09:05 Vitamin B12 deficienc y (non anemic) 66981804 Active 2022 Chrissie Lira APRN [address], [place], [address] , [employer] 4 08:09:25 Rupture of anterior cruciate ligament 850981587 Active [facility] [address], [address], [place], [address] , [employer] 4 08:03:02 Tear of lateral meniscus of knee 801186619 Active Chrissie Lira APRN [address], [place], [address] , [employer] 4 08:03:02 Sleep apnea 08992567 Active 2024 Chrissie Lira APRN [address], [place], [address] , [employer] 5 10:50:12 Obstructi ve sleep apnea syndrome 27875740 Active 2024 Luke Beebe MD [address] [facility], [facility] [address], [place], [address] , [employer] 5 14:33:48 Vitamin D deficienc y 99654790 Active 2024 Chrissie Lira APRN [address] [facility], [facility] [address], [place], [address] , [employer] 5 14:21:53 Pain of left ankle joint 61243728207 503915 Active 2024 Chrissie Lira APRN [address] [facility], [place] [address], [place], [address] , [employer] 5 08:34:52 Notes:Medical History: Anxie ty Intermittent palpitations (+) speckled ROMAN >1:1280 Mild OSAHS, AHI = 3, 05/15/24 Mild [place]/TR PASP 32 mmHg Hypertension with EF 60% CHAPIS Vit B12 deficiency Right lateral meniscus tear Right ACL tear Right vastus lateralis musculotendinous junction tear Right ruptured popliteal fossa cyst Procedure History: T&A 1996 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 Smith CNA [employer] 03/08/2023 11:05:04 tonsilecto my/adenoid s completed Georgia Smith CNA [employer] 03/08/2023 11:04:36 Imaging Results Imaging Date Name Status [facility] by [facility] Details LastModified Time 02/14/2024 XR, abdomen + pelvis completed [facility] (Radiology) [address] [place], [address], 02/15/2024 17:31:35 05/15/2024 home sleep study completed [facility] [address] [place], [address], 05/16/2024 17:45:14 07/02/2024 XR, ankle, 3 or more view completed [facility] (Imaging) [address] [facility], [place], [address], 07/04/2024 15:41:33 Procedure Notes None recorded. Medical Equipment None Reported. Allergies Allergen ID Allergen Name Allergen Category Reaction Reaction Severity Criticality Documentation Date Start Date Code Code System Note Provider Name and Address Organization Details Recorded Time 19433 No known allergy (situatio n) Not available Not available Not available Not available 10/26/2023 71381 [id number] SNOMED Chrissiereji Lira, QUARTZ CUTTER [address] [facility], [address], [place], [address] , [facility] [employer] 08:00:36 No known drug allergies Medications Name Sig Start Date Stop Date Status Note LastModified by Organization Details LastModified Time cyclobenzap rine 10 mg tablet TK ONE T PO TID active Not Available Not Available No t Available amoxicillin 500 mg capsule TK ONE C PO Q 8 H TAT 05/14 completed Not Available Not Available Not Available fluconazole 100 mg tablet TAKE 1 TABLET BY MOUTH EVERY DAY 05/14 completed Not Available Not Available Not Available promethazin e-DM 6.25 mg-15 mg/5 mL oral syrup TAKE 5 ML BY MOUTH EVERY 4 HOURS NEEDED FOR COUGH 10/25 completed Not Available Not Available Not Available doxycycline hyclate 100 mg capsule 05/14 completed Not Available Not Available Not Available clindamycin HCl 300 mg capsule TK ONE C PO Q 6 H FOR 10 DAYS active Not Available Not Available No t Available cetirizine 10 mg tablet TAKE 1 TABLET BY MOUTH DAILY NEEDED FOR ALLERGYS. 10/25 completed Not Available Not Available Not Available azithromyci n 250 mg tablet TAKE 2 TABLETS BY MOUTH ONCE FOR 1 DOSE 04/09 completed Not Available Not Available Not Available cephalexin 250 mg capsule TAKE ONE CAPSULE BY MOUTH EVERY 8 HOURS 05/14 completed Not Available Not Available Not Available hydrocodone 5 mg-acetamin ophen 325 mg tablet TK 1 TO 2 TS PO Q 6 H PRF PAIN active Not Available Not Available No t Available meloxicam 15 mg tablet 06/26 /2024 completed Not Available Not Available Not Available ondansetron HCl 4 mg tablet 4 MG ORALLY EVERY 8 HOURS NEEDED FOR NAUSEA AND VOMITING 01/21 completed Not Available Not Available Not Available Diflucan 150 mg tablet Take 1 tablet x1, wait 3 days and take 2nd tablet 05/16 completed Not Available Not Available Not Available penicillin V potassium 500 mg tablet 08/09 completed Not Available Not Available Not Available topiramate 25 mg tablet 08/09 completed Not Available Not Available Not Available meclizine 12.5 mg tablet 10/25 completed Not Available Not Available Not Available ciprofloxac in 250 mg tablet 08/09 completed Not Available Not Available Not Available tramadol 50 mg tablet TAKE 1 TABLET BY MOUTH TWICE A DAY NEEDED FOR PAIN 01/21 completed Not Available Not Available Not Available butalbital- acetaminoph en-caffeine 50 mg-325 mg-40 mg tablet TK 1 T PO Q 4 H PRN active Not Available Not Available No t Available ketorolac 10 mg tablet TK 1 T PO Q 6 H PRN 08/09 completed Not Available Not Available Not Available propranolol 10 mg tablet TAKE 2 TABLETS BY MOUTH 3 TIMES A DAY NEEDED active Not Available Not Available No t Available Microgestin FE 05/21 (28) 1 mg-20 mcg (21)/75 mg (7) tablet TK 1 T PO D 08/09 completed Not Available Not Available Not Available amoxicillin 875 mg tablet 05/14 completed Not Available Not Available Not Available cyanocobala min (vit B-12) 500 mcg tablet TAKE 1 TABLET BY MOUTH EVERY DAY 01/21 completed Not Available Not Available Not Available pantoprazol e 40 mg tablet,mary yed release Take 1 tablet every day by oral route as directed. 05/16 completed Not Available Not Available Not Available cyanocobala min (vit B-12) 1,000 mcg/mL injection solution Inject 1 mL every month by subcutane ous route. 08/02 completed Not Available Not Available Not Available ferrous sulfate 325 mg (65 mg iron) tablet TK ONE T PO TID active Not Available Not Available No t Available fluoxetine 20 mg tablet Take 1 tablet every day by oral route as directed. 2024 active Not Available Not Available Not Avai lable buspirone 7.5 mg tablet TAKE 1 TABLET BY MOUTH TWICE A DAY DIRECTED 10/25 completed Not Available Not Available Not Available omeprazole 20 mg capsule,del ayed release TAKE 1 CAPSULE BY MOUTH EVERY DAY DIRECTED 02/12 completed Not Available Not Available Not Available diclofenac sodium 75 mg tablet,mary yed release Take 1 tablet twice a day by oral route. 10/25 completed Not Available Not Available Not Available ergocalcife rol (vitamin D2) 1,250 mcg (50,000 unit) capsule TAKE 1 CAPSULE BY MOUTH ONCE WEEKLY 01/21 completed Not Available Not Available Not Available ibuprofen 600 mg tablet TAKE 1 TABLET BY MOUTH EVERY 6 HOURS NEEDED WITH FOOD 01/21 completed Not Available Not Available Not Available methylpredn isolone 4 mg tablets in a dose pack TAKE 6 TABLETS ON DAY 1 DIRECTED ON PACKAGE AND DECREASE BY 1 TAB EACH DAY FOR A TOTAL OF 6 DAYS 01/21 completed Not Available Not Available Not Available albuterol sulfate HFA 90 mcg/actuati on aerosol inhaler INHALE 2 PUFFS BY MOUTH EVERY 4 HOURS NEEDED FOR WHEEZING OR SHORTNESS OF BREATH 05/14 completed Not Available Not Available Not Available paroxetine 40 mg tablet Please specify direction s, refills and quantity active Not Available Not Available No t Available fluticasone propionate 50 mcg/actuati on nasal spray,suspe nsion SHAKE LIQUID AND USE 2 SPRAYS IN EACH NOSTRIL DAILY 10/25 completed Not Available Not Available Not Available naproxen 500 mg tablet TK 1 T PO BID PRN active Not Available Not Available No t Available metoclopram eddie 10 mg tablet Take 1 tablet every 6-8 hours by oral route as needed. 09/06 completed Not Available Not Available Not Available amoxicillin 875 mg-potassiu m clavulanate 125 mg tablet TAKE 1 TABLET BY MOUTH TWICE DAILY EVERY 12 HOURS 10/25 completed Not Available Not Available Not Available Bactrim DS 800 mg-160 mg tablet Take 1 tablet every 12 hours by oral route as directed for 14 days, for UTI. 05/16 completed Not Available Not Available Not Available enoxaparin 80 mg/0.8 mL subcutaneou s syringe 80 mg by sub-q route. 01/13 completed Not Available Not Available Not Available escitalopra m 20 mg tablet TAKE 1 TABLET BY MOUTH EVERY DAY 06/18 completed Not Available Not Available Not Available Lexapro 10 mg tablet medicatio n:Lexapro 10 mg tablet do se:0.0 route:PO frequenc y: 10/25 completed Not Available Not Available Not Available 05/14 completed Not Available Not Available Not Available omeprazole 20 mg-sodium bicarbonate 1,680 mg oral packet Take by oral route for 30 days. active Not Available Not Available No t Available FreeStyle Lite Strips TEST 8 TIMES D active Not Available Not Available No t Available Next Choice One Dose 1.5 mg tablet FPD 08/09 completed Not Available Not Available Not Available Vaz[place] 81 mg capsule medicatio n:aspirin 81 mg capsule d ose:0.0 route:PO frequenc y:DAILY 10/25 completed Not Available Not Available Not Available Vitals Date Recorded Body height Body mass index (BMI) Body weight Body temperature Heart rate Oxygen saturation Oxygen saturation in Arterial blood by Pulse oximetry Systolic blood pressure Diastolic blood pressure Provider Name and Address Organization Details Last Updated DateTime 4 167.64 cm 27.1 kg/m2 09598.5 2 g 97.7 [degF] 70 /min 97 % 97 % 114 mm[Hg] 68 mm[Hg] Mariann Varma MA [facility] [employer] [facility] 4 11:07:23 Date Recorded Body height Body mass index (BMI) Body weight Heart rate Oxygen saturation Oxygen saturation in Arterial blood by Pulse oximetry Systolic blood pressure Diastolic blood pressure Provider Name and Address Organization Details Last Updated DateTime 4 167.64 cm 27.3 kg/m2 02362.1 1 g 83 /min 99 % 99 % 112 mm[Hg] 66 mm[Hg] TIRSO Benitez [facility] [employer] [facility] 4 14:13:07 Date Recorded Body height Body mass index (BMI) Body weight Body temperature Heart rate Oxygen saturation Oxygen saturation in Arterial blood by Pulse oximetry Pain severity - 0-10 verbal numeric rating [Score] - Reported Systolic blood pressure Diastolic blood pressure Provider Name and Address Organization Details Last Updated DateTime 5 167.64 cm 27 kg/m2 56465.9 3 g 97.3 [degF] 70 /min 99 % 99 % 5 114 mm[Hg] 66 mm[Hg] Mariann Varma MA [facility] [employer] [facility] 5 10:20:33 Date Recorded Body height Body mass index (BMI) Body weight Body temperature Heart rate Oxygen saturation Oxygen saturation in Arterial blood by Pulse oximetry Systolic blood pressure Diastolic blood pressure Provider Name and Address Organization Details Last Updated DateTime 5 167.64 cm 27.6 kg/m2 34739.3 g 98.1 [degF] 63 /min 98 % 98 % 116 mm[Hg] 68 mm[Hg] Griselda Tee MA [facility] [employer] [facility] 5 14:12:19 Date Recorded Heart rate Respiratory rate Provider Meghana kirby and Address Organization Details Last Updated DateTime 05/17/2024 63 /min 15 /min Luke Beebe MD [address] [place] [address], [address], [facility] [employer] [facility] 05/17/2024 14:28:54 Date Recorded Body height Body mass index (BMI) Body weight Body temperature Heart rate Oxygen saturation Oxygen saturation in Arterial blood by Pulse oximetry Pain severity - 0-10 verbal numeric rating [Score] - Reported Systolic blood pressure Diastolic blood pressure Provider Name and Address Organization Details Last Updated DateTime 5 167.64 cm 27.1 kg/m2 64679.5 2 g 97.4 [degF] 74 /min 99 % 99 % 0 100 mm[Hg] 60 mm[Hg] Mariann Varma MA [facility] [employer] [facility] 5 10:47:19 Social History Question Answer Notes LastModified by Organizat ion Details LastModified Time Tobacco Smoking Status Never Smoker Not Available [facility] 06/30/2022 08:44:27 What Is Your Level Of Alcohol Consumption? Occasional [id number] Information not available 06/30/2022 What Is Your Level Of Caffeine Consumption? Heavy MIGRATION.57175 43500 Information not available 06/30/2022 In The 14 Days Before Symptom Onset, Have You Had Close Contact With A Laboratory-confir med COVID-19 While That Case Was Ill? No MIGRATION.73384 [id number] Information not available 06/30/2022 In The 14 Days Before Symptom Onset, Have You Had Close Contact With A Person Who Is Under Investigation For COVID-19 While That Person Was Ill? No MIGRATION.52137 05288 Information not available 06/30/2022 Are You Currently Employed? No Information not available 02/01/2024 What Type Of Diet Are You Following? REGULAR MIGRATION.85114 07992 Information not available 06/30/2022 What Is The Highest Grade Or Level Of School You Have Completed Or The Highest Degree You Have Received? BS44350-0 MIGRATION.47622 10589 Information not available 06/30/2022 Do You Have An Electrostatic Air Filter? No Information not available 05/17/2024 Have There Been Any Changes To Your Family Or Social Situation? No MIGRATION.97004 80820 Information not available 06/30/2022 What Is The Fluoride Status Of Your Home? Unknown MIGRATION.85814 59249 Information not available 06/30/2022 Are There Any Guns Present In Your Home? Yes MIGRATION.55779 55704 Information not available 06/30/2022 Do You Have A Humidifier? No Information not available 05/17/2024 Do You Use Insect Repellent Routinely? No MIGRATION.37906 54357 Information not available 06/30/2022 Where Do You Live? [place]House MIGRATION.43207 99944 Information not available 06/30/2022 Do You Have Moisture Problems In Your Home? No Information not available 05/17/2024 What Was The Date Of Your Most Recent Tobacco Screening? 06/18/2024 Information not available 06/18/2024 How Many Children Do You Have? 3 Information not available 10/26/2023 Do You Have Any Pets? No MIGRATION.91828 06051 Information not available 06/30/2022 What Is Your Relationship Status? Information not available 10/26/2023 Do You Use Your Seat Belt Or Car Seat Routinely? Yes Information not available 05/17/2024 Do You Have Smoke And Carbon Monoxide Detectors In Your Home? Yes MIGRATION.58263 92668 Information not available 06/30/2022 Are You Passively Exposed To Smoke? No MIGRATION.82539 07008 Information not available 06/30/2022 Are There Any Smokers In Your House? No MIGRATION.09899 05219 Information not available 06/30/2022 Do You Feel Stressed (tense, Restless, Nervous, Or Anxious, Or Unable To Sleep At Night)? [id number] MIGRATION.65353 78440 Information not available 06/30/2022 Do You Use Any Illicit Or Recreational Drugs? No MIGRATION.97764 52106 Information not available 06/30/2022 Do You Use Sunscreen Routinely? Yes MIGRATION.14404 25424 Information not available 06/30/2022 Have You Recently Traveled Abroad? No MIGRATION.86600 06917 Information not available 06/30/2022 Do You Have Any Dietary Restrictions? No MIGRATION.31047 41863 Information not available 06/30/2022 Do You Or Have You Ever Used Any Other Forms Of Tobacco Or Nicotine? No MIGRATION.88678 74047 Information not available 06/30/2022 Sex: Female Functional Status Question Answer Note LastModified by Organizat ion Details LastModified Time What is your exercise level? Moderate [id number] Information not available 06/30/2022 Mental Status None recorded. Family History Relationship Description Onset Age of this Age Resolved Age Notes LastModified by Organization Details LastModified Time Maternal Grandmother Cerebrovascu lar accident [email or web address] Not available 14:21:53 Maternal Grandmother Malignant tumor of lung [email or web address] Not available 2024 14:22:19 Son [id number]-[id number] trypsin deficiency [email or web address] Not available 05/17 14:23:32 Paternal Aunt Pulmonary embolism [email or web address] Not available 2024 14:23:59 Mother Narcolepsy Not available 05/17/2024 14:24:15 Daughter Central sleep apnea syndrome [email or web address] Not available 2024 14:30:29 Daughter Dystonia due to mitochondria l disease [email or web address] Not available 2024 14:31:03 Medical History Condition Response NERVE DISEASE N BLINDNESS N RHEUMATIC FEVER N KIDNEY STONES N BLADDER PROBLEMS N MRSA N OTHER # 1 N POLIO N LUNG DISEASE/DISORDER N HISTORY OF DRUG ABUSE N RADIATION / CHEMOTHERAPY N COPD N Other # 2 N BLOOD DISEASES N EAR OR HEARING PROBLEMS N MUMPS N SHINGLES N BOWEL PROBLEMS N DEPRESSION (INCLUDING POST ) N STROKE/TIA N ULCERS N BENIGN PROSTATIC HYPERPLASIA N MEASLES N HYPOTENSION N MYOCARDIAL INFARCTION N OBESITY N GERD/NAUSEA N ANEURYSM N URINARY/BLADDER/KIDNEY PROBLEMS N CORONARY ARTERY DISEASE (CAD) N ADDICTION CONCERNS N ENDOMETRIOSIS N Impotence N USE OF BLOOD THINNERS N SKIN PROBLEMS N GASTROINTESTINAL DISORDER N PERIPHERAL VASCULAR DISEASE N MUSCLE,JOINT OR BONE PROBLEMS N GASTROINTESTINAL BLEEDING N BLOOD CLOTS N ASTHMA N CATARACTS N ERECTILE DYSFUNCTION N VARICOSITIES N GI PROBLEMS N Low Testosterone N INFERTILITY N AIDS/HIV N CHEMOTHERAPY / RADIATION N LIVER DISEASE N MALE HYPOGONADISM N HYPERTENSION N Deficiency N TOURETTE'S N ANXIETY DISORDER Y BLOOD TRANSFUSION N ANEMIA/BLOOD DISORDER Y CHRONIC EAR INFECTIONS N BRONCHITIS N TUBERCULOSIS N GLAUCOMA N FOOT PROBLEM N DIVERTICULITIS N CHICKENPOX N SLEEP APNEA N INFECTIOUS DISEASE N HEART ARRHYTHMIA N PROSTATE N INSOMNIA N HIGH CHOLESTEROL / HYPERLIPIDEMIA N HYPERTHYROIDISM N EYE PROBLEMS N EDEMA N CHRONIC PAIN SYNDROME N HYPOTHYROIDISM N CAROTID BLOCKAGE N CONSTIPATION N BACK / NECK PROBLEMS N HAVE YOU BEEN HOSPITALIZED OR SEEN IN [facility] IN THE PAST YEAR ? N ATHEROSCLEROSIS N BREAST PROBLEMS N DIALYSIS N ECZEMA N OSTEOPOROSIS N ARTHRITIS N NO SIGNIFICANT PAST MEDICAL HISTORY N APPENDICITIS N DIABETES, TYPE N BAD TEETH N ENT N HEARTBURN / REFLUX N AUTISM SPECTRUM DISORDER (ASD) N HEPATITIS / LIVER DISEASE N GOUT N SLEEP DISORDER N ALZHEIMER'S DISEASE N Brain Problems N HERPES N DEMENTIA N HEADACHES/MIGRAINES N SEIZURES/EPILEPSY N VASCULAR DISEASE N PACEMAKER N Blood Disorder N DIZZINESS N HEART DISEASE/HEART PROBLEMS N KIDNEY DISEASE N MULTIPLE SCLEROSIS N CARDIAC ARRHYTHMIA N CANCER: SPECIFY N ATRIAL FIBRILLATION N Gall Stones N PULMONARY EMBOLISM N AUTOIMMUNE DISEASE N Gynecological History Statement/Question Response How many live births 3 Date of Last Pap Current Control Method IUD Date of LMP Obstetrics History GPAL:G 3 P 2 1 0 3 Type Value Multiple Births 0 Full Term 2 Induced 0 Spontaneous 0 Premature 1 Living 3 Ectopics 0 Total 3 Immunizations Vaccine Type Date Status Note Provider Nam e and Address Organization Details Recorded Time Influenza, split virus, quadrivalent, preservative 6 completed Chrissie Lira APRN [address] [facility], [place] [address], [place], [address], [place] [employer] 10/26/2023 08:01:20 Tdap 8 completed Chrissie Lira APRN [address] [facility], [address], [place], [address], [employer] [facility] [employer] [facility] 10/26/2023 08:01:20 Tdap [address], [place], [address], [employer] [facility] [employer] [facility] 10/26/2023 08:01:20 Hep B, unspecified formulation [address], [place], [address], [employer] [facility] 10/26/2023 08:01:20 Hep B, unspecified formulation [address], [place], [address], [employer] [facility] [employer] [facility] 10/26/2023 08:01:20 Hep B, unspecified formulation 8 completed [address], [address], [place], [address], [employer] [facility] [employer] [facility] 10/26/2023 08:01:21 Influenza, split virus, trivalent, preservative [address], [place], [address], [employer] [facility] [employer] [facility] 10/26/2023 08:01:21 Hep B, adolescent or pediatric [address], [place], [address], [employer] [facility] [employer] [facility] 10/26/2023 08:01:21 Hep B, adult [address], [place], [address], [employer] [facility] [employer] [facility] 10/26/2023 08:01:21 Influenza, split virus, quadrivalent, PF [address], [place], [address], [employer] 10/26/2023 08:01:21 Influenza, split virus, quadrivalent, PF 2 completed Chrissie Lira [employer] [address], [place], [address], [employer] [facility] 10/26/2023 08:01:21 influenza, unspecified formulation 2 completed Not Available [facility] 04/14/2023 08:22:51 Influenza, split virus, trivalent, PF 4 completed Chrissie Lira, [employer] [address], [place], [address], [employer] [facility] 02/01/2024 15:27:54 Past Encounters Encounter ID Performer Location Encounter Start Date Encounter Closed Date Diagnosis/Indication Diagnosis SNOMED-CT Code Diagnosis ICD10 Code Diagnosis Note [id number] [facility] [place] [address] [facility] [address] [place] [address] 05/14/2022 00:00:00 05/14/2022 13:04:09 [id number] [facility] [place] [address] [place] [address] 06/03/2022 00:00:00 06/03/2022 10:28:02 [id number] KELLEE Vela [facility] [address] [address] [facility] [address] [place] [address] 08/02/2022 10:17:28 08/02/2022 10:35:13 Intermittent palpitations 504154849 R00.[address] Deni Mccarthy at [facility] following Dr. Stark at [facility] testing was normal Electrocar diogram abnormal 761764525 R94.31 as above- all cardiac testing normal Vitamin D deficiency 347 46575 E55.9 on supplement Generalize d anxiety disorder 98414042 F41.1 On Lexapro-sh e is aware of side effects, risks, and benefitsCa ll office if any change in mood or behaviorGe t appt with psychiatry - referral previously given- encouraged her to reschedule her missed apptRecomm end counseling -name/numb ers previously given to patient as well as 24 hour crisis line number Essential hypertension 98815117 I10 stable off meds since last / period Vitamin B1 2 deficiency (non anemic) 15079407 E53.8 had local reaction to B12 shotswill switch to daily pillsrepea t labs in 2 months Fatigue 83892605 R53.83 continue/s tart supplement s as aboveget appt with psychiatry and counselor as I do think some of this is stress/unm anaged anxiety [id number] KELLEE Vela [facility] [place] [address] [place] [address] 11/01/2022 10:00:09 11/01/2022 10:28:40 Intermittent palpitations 780547203 R00.[address] Deni Mccarthy at [facility] following Dr. Stark at [facility] testing was normal Electrocar diogram abnormal 871262064 R94.31 as above- all cardiac testing normal Vitamin D deficiency 347 03808 E55.9 on supplement Generalize d anxiety disorder 74338072 F41.1 On Lexapro-sh roberto carlos is aware of side effects, risks, and benefitsCa ll office if any change in mood or behaviorSh roberto carlos was previously referred to Psychiatry and then she missed her appointmen t and decided now that she does not want to go, feels like her current meds are workingRec ommend counseling -name/numb ers previously given to patient as well as 24 hour crisis line number Essential hypertension 64838591 I10 stable off meds since last / period Vitamin B1 2 deficiency (non anemic) 00739997 E53.8 had local reaction to B12 shotsnow on PO supplement Anti-nucle ar factor detected 097311543 R76.8 she reschedule d her rheumatolo gy appt with [facility]- now scheduled for early November Pre-surger y evaluation 126466722 Z01.818 Cardiology cleared her for surgery on 10/12/22 (see consult note in chart)chec k labsIf labs are okay, I will clear her from PCP perspectiv e and fax her form [id number] KELLEE Vela [facility] [place] [address] [place] [address] 01/21/2023 10:08:05 01/21/2023 10:28:40 Intermittent palpitations 495302275 R00.[address] Deni Mccarthy at [facility] following Dr. Stark at [facility] testing was normal Electrocar diogram abnormal 159641622 R94.31 as above- all cardiac testing normal Vitamin D deficiency 347 89806 E55.9 on supplement Generalize d anxiety disorder 14919325 F41.1 On Lexapro-sh roberto carlos is aware of side effects, risks, and benefitsCa ll office if any change in mood or behaviorSh roberto carlos was previously referred to Psychiatry and then she missed her appointmen t and decided now that she does not want to go, feels like her current meds are workingRec ommend counseling -name/numb ers previously given to patient as well as 24 hour crisis line number Essential hypertension 67840140 I10 stable off meds since last / period Vitamin B1 2 deficiency (non anemic) 94724541 E53.8 had local reaction to B12 shotsnow on PO supplement Anti-nucle ar factor detected 690599816 R76.8 she reschedule d her rheumatolo gy appt with [facility]- now for May 2023 Adult heal th examination 267313572 Z00.01 Depression screening 171 068747 Z13.31 Body mass index 25-29 - overweight 014450358 Z68.28 [id number] Radha Hunter NP [facility] [address] [facility] [address] [place] [address] 02/02/2023 11:21:55 02/02/2023 13:06:20 [id number] MD HILARY Kellogg_[facility] [place] [address] [place] [address] 03/08/2023 10:50:41 03/08/2023 11:49:29 Pain of right knee joint 4418878960 98854 M25.060 [id number] MD HILARY Kellogg_[facility] [place] [address] [place] [address] 03/29/2023 09:12:34 03/29/2023 09:46:03 Pain of right knee joint 8027736492 37955 M25.561 Strain of hamstring tendon 918396242 S76.311A Iliotibial band friction syndrome 798685342 M76.31 [id number] Abiodun Estes MD [facility] [address] [place] [address] 05/16/2023 10:29:12 05/16/2023 10:52:50 Pain of right knee joint 0238729024 48483 M25.080 [id number] Chrissie Lira APRN [facility] [address] [facility] [place] [address] 10/26/2023 09:40:07 10/26/2023 10:13:38 Essential hypertension 88908858 I10 Cobalamin deficiency 190 775451 E53.8 Vitamin D deficiency 347 80435 E55.9 Abdominal pain 35638766 R10.9 [id number] Chrissie Lira APRN [facility] Internal Med [address] [place] [address] 02/01/2024 11:11:16 02/01/2024 12:16:54 Acute urinary tract infection 685897951 N39.0 Difficulty swallowing 28 7840544 R13.10 Hepatitis C screening 41 4871283 Z11.59 Administra tion of influenza vaccine 56850794 Z23 [id number] Dana Villafuerteaileen [facility] Internal Med [facility] [address] [facility] [address] [place] [address] 02/13/2024 10:47:30 02/13/2024 11:26:13 Abdominal pain 93744881 R10.9 Also having pelvic pain, bloating, inability to eat or drink. Pain in pelvis 13855680 R10.2 CT of abdomen/pe lvis. [id number] June Romano MD [facility] General Surgery [address] [facility] [address] [place] [address] 04/09/2024 14:08:24 04/09/2024 14:29:39 Esophageal dysphagia 14023978 R13.19 [id number] Chrissie Lira APRN [facility] Internal Med [facility] [address] [facility] [address] [place] [address] 05/10/2024 10:13:21 05/10/2024 10:54:03 Generalized anxiety disorder 97861564 F41.1 Acute urin neris tract infection 702200316 N39.0 Sleep apnea 31316441 G47 .30 [id number] Luke Beebe MD [facility] [place] [address] 05/17/2024 13:55:50 05/28/2024 13:42:44 Obstructive sleep apnea syndrome 45130756 G47.33 [id number] Chrissie Lira APRN [facility] Internal Med [facility] [address] [address] 06/18/2024 10:42:06 06/18/2024 11:23:45 Generalized anxiety disorder 58079302 F41.1 Health Concerns Section Related Observation LastModified by Organization Detai ls LastModified Time None Recorded Concern Status LastModified by Organization Details LastModified Time None Recorded Advance Directives Directive None Recorded Payers Encounter Date Sequence Insurance Name Policy Number Policy Ferrell Covered Member ID Ferrell Member ID Guarantor Name 02/13/2024 1 [facility] ON OR AFTER 10/30/20 (MEDICAID REPLACEMENT - HMO) Tran Rice [id number] Tran Rice 04/09/2024 1 [facility] ON OR AFTER 10/30/20 (MEDICAID REPLACEMENT - HMO) Tran Rice [id number] Tran Rice 05/10/2024 1 [facility] ON OR AFTER 10/30/20 (MEDICAID REPLACEMENT - HMO) Tran Rice [id number] Tran Rice 05/17/2024 1 [facility] ON OR AFTER 10/30/20 (MEDICAID REPLACEMENT - HMO) Tran Rice [id number] Tran Rice 06/18/2024 1 [facility] ON OR AFTER 10/30/20 (MEDICAID REPLACEMENT - HMO) Tran Rice [id number] Tran Rice Notes Date Note Type Note Provider Name and Address Organization Details Recorded Time 02/13/2024 text/html Tran present s today for abdominal/pelvic pain that has been goinf on since Tuesday. She states that she has tried a laxative, iburpofen, heating pad, and nothing has worked. She states that the pain is in the lower abdomen and she feels bloated. 02/01/2024gee presents today for 3 month follow up and UTI. Urine dipstick performed shows positive for leukocytes, bilirubin, pH is 6. 10/26/2023gee presents today to establish care and for abdominal pain. On a 1-10 pain scale, she rates the pain at a 5. She states that it is a stabbing pain, denies diarrhea or constipation. She states that the pain has been going on for a few weeks. 01/21/2023gee presents today for follow up. She is also due for her annual wellness exam. She did have her knee surgery. Her knee and leg pain is still present but it is improving since surgery. She follows up again with Ortho in a few weeks. She reports her mood is stable on her current dose of Lexapro. She does have an appointment with the psychiatrist in a few weeks. She denies any SI or HI today. She tells me she is not interested in seeing a counselor. She does have her appointment scheduled with Rheumatology but it is not until May. She has not had any more issues with intermittent palpitations since she last saw Cardiology.\ She declines flu shot today. Chrissie Lira APRN [address], [place], [address], [employer] 02/13/2024 11:21:42 04/09/2024 text/html PT WAS SEEN IN T HE OFFICE TODAY FOR DYSPHAGIA EVALUATION . PT SX ARE TO SOLIDS /LIQUIDS X 2 YRS . PT ADMITS PYROSIS . PT HAS 3 KIDS . ALL HAVE EoE . THEY ARE ON DUPIXENT . June Romano MD [address] [facility], [address], [place], [address], [employer] 04/09/2024 14:30:16 05/10/2024 text/html Tran present s today for 3 month follow up. Patient states that she might have a UTI, results negative. She is also asking if we can increase her anxiety medication. She states that her wanted her checked for sleep apnea as she is tired in the morning, snoring a lot, and waking up frequently through. 02/13/2024gee presents today for abdominal/pelvic pain that has been going on since Tuesday. She states that she has tried a laxative, ibuprofen, heating pad, and nothing has worked. She states that the pain is in the lower abdomen and she feels bloated. 02/01/2024jf presents today for 3 month follow up and UTI. Urine dipstick performed shows positive for leukocytes, bilirubin, pH is 6. 10/26/2023gee presents today to establish care and for abdominal pain. On a 1-10 pain scale, she rates the pain at a 5. She states that it is a stabbing pain, denies diarrhea or constipation. She states that the pain has been going on for a few weeks. 01/21/2023gee presents today for follow up. She is also due for her annual wellness exam. She did have her knee surgery. Her knee and leg pain is still present but it is improving since surgery. She follows up again with Ortho in a few weeks. She reports her mood is stable on her current dose of Lexapro. She does have an appointment with the psychiatrist in a few weeks. She denies any SI or HI today. She tells me she is not interested in seeing a counselor. She does have her appointment scheduled with Rheumatology but it is not until May. She has not had any more issues with intermittent palpitations since she last saw Cardiology.\ She declines flu shot today. Chrissie Lira APRN [address] [facility], [facility] [address], [place], [address], [facility] [employer] 05/10/2024 10:51:52 05/17/2024 text/html Primary care/Referring provider: Chrissie Lira APRN During the [facility] home sleep study on 05/15/24, AHI = 3. At home, the patient sleeps from 10 pm to 6 am and wakes up with an alarm. Snoring: heavy, since . Snorting: no Choking: yes Coughing: no Gasping: yes Gagging: no Sighing: no Witnessed apnea: yes Twitching or jerking of leg(s), arm(s), body, head: yes Teeth grinding: no Teeth clenching: no Sleeptalking: no Sleepwalking: no Sleep crying: no Bedwetting: no Tongue/lip/gum/cody k biting: no Sleeping with open mouth: yes Sleep paralysis: no Hypnagogic hallucinations: no Hypnopompic hallucinations: no Vivid dreams: yes Difficulty with sleep onset: yes Difficulty with sleep maintenance: yes Sleep interruptions: for no known reasons Patient wakes up with: fatigue, sore throat, headaches, cognitive impairment Daytime cataplexy: no Morning hypersomnolence: yes Afternoon hypersomnolence: yes Caffeine sources in diet: soda 1 can per day, energy drink 1.5 can of Celsius per day Associated medical and psychiatric conditions: Congestive heart failure: no Coronary artery disease: no Myocardial infarction: no Hypertension: yes Stroke: no Bronchial asthma: no Chronic obstructive pulmonary disease: no Depression: no Bipolar disorder: no Anxiety: yes Panic disorder: no Posttraumatic stress disorder: no Attention deficit and hyperactivity disorder: no Obsessive Compulsive disorder: no Schizophrenia: no Schizoaffective disorder: no Personality disorder: no Chronic analgesic use: no Chronic sedative/hypnotic use: no EPWORTH SLEEPINESS SCALE (ESS) CHANCE OF DOZING SCORE 0 = would never doze 1 = slight chance of dozing 2 = moderate chance of dozing 3 = high chance of dozing SITUATION AND CHANCE OF DOZING Sitting and reading - 2 Watching television - 3 Sitting inactive in a public place (e.g. a theater or meeting) - 0 As a passenger in a car for an hour without a break - 1 Lying down to rest in the afternoon when circumstances permit - 3 Sitting and talking to someone - 0 Sitting quietly after lunch without alcohol - 1 In a car, while stopped for a few minutes in the traffic - 0 TOTAL SCORE 10 Subjectively, patient has a moderate chance of dozing. Luke Beebe MD [address] [place] [address], [facility] [address], [place], [address], [place] [facility] [facility] 05/17/2024 14:41:58 06/18/2024 text/html Tran present s today for medication follow up. She states that the escitalopram is not working as she would like for her anxiety. She states that she has been on Fluoxetine in the past and she would like to try that again. 05/10/2024Tran presents today for 3 month follow up. Patient states that she might have a UTI, results negative. She is also asking if we can increase her anxiety medication. She states that her wanted her checked for sleep apnea as she is tired in the morning, snoring a lot, and waking up frequently through. 02/13/2024gee presents today for abdominal/pelvic pain that has been going on since Tuesday. She states that she has tried a laxative, ibuprofen, heating pad, and nothing has worked. She states that the pain is in the lower abdomen and she feels bloated. 02/01/2024gee presents today for 3 month follow up and UTI. Urine dipstick performed shows positive for leukocytes, bilirubin, pH is 6. 10/26/2023gee presents today to establish care and for abdominal pain. On a 1-10 pain scale, she rates the pain at a 5. She states that it is a stabbing pain, denies diarrhea or constipation. She states that the pain has been going on for a few weeks. 01/21/2023gee presents today for follow up. She is also due for her annual wellness exam. She did have her knee surgery. Her knee and leg pain is still present but it is improving since surgery. She follows up again with Ortho in a few weeks. She reports her mood is stable on her current dose of Lexapro. She does have an appointment with the psychiatrist in a few weeks. She denies any SI or HI today. She tells me she is not interested in seeing a counselor. She does have her appointment scheduled with Rheumatology but it is not until May. She has not had any more issues with intermittent palpitations since she last saw Cardiology.\ She declines flu shot today. Chrissie Lira, [employer] [address] [facility], [facility] [address], [place], [address], [facility] [employer] 06/18/2024 11:03:19 OBGyn Episode No OBEpisode recorded.
--- OUTSIDE RECORDS SUMMARY | 2024-08-01 11:16 | XMS_ITS | Clinical Summary ---
Author Organization [facility] Address [address] [place] [address] Phone Care Team Providers Care Outpatient Admitting Clerk Name Role Phone MC RANDALL, DORIS Primary Care Provider [phone] SANTY REED MD Unavailable [phone] Reason for Visit and Chief Complaint The Chief Complaint is: F/U for med check Still having headaces and they are keeping her up at night Problems Includes: Problems addressed during this encounter and other active Problems Current Visit Onset Date Resolved Date Provider Conditio n Status Chronic Daily Headache 11/27/2011 VICTO AME A PO PMHNP-BC [employer]-BC Active Last Documented On 0 9:27AM ; [facility] Past Visits Onset Date Resolved Date Provider Condition Status Vitamin D Deficiency 06/06/2020 MARCELLA Salvador PO PMHNP-BC [employer]-BC Active Last Documented On 1 9:06AM ; [facility] Headache Syndromes 09/01/2016 CHACHA BANDA PA-C Active Last Documented On 7 9:57AM ; [facility] Tachycardia Sinus 05/07/2015 CHACHA Salvador-C Active Last Documented On 6 2:14PM ; [facility] Depression 09/10/2011 DORIS BENTLEY MD Act aneudy Last Documented On 2 10:10PM ; [facility] Vitamin B12 Deficiency 08/14/2010 VICTO AME A PO PMHNP-BC [employer]-BC Active Last Documented On 1 9:06AM ; [facility] Note: Unchanged Anemia 08/15/2009 ORTEGA PERALTA PA-C Active Last Documented On 0 9:21AM ; [facility] Note: Unchanged Plan of Treatment - Return to the clinic if condition worsens or new symptoms arise - Last Documented On 07/18/2020 3:29PM ; [facility] - Follow-up visit in 4 months - Last Documented On 07/18/2020 3:29PM ; [facility] Referrals To Diagnosis Neurologist ALEXANDRIA CRUZ MD - [facility] - [address] [place] [address] Other headache syndrome Last Documented On 1 1:33PM ; [facility] Assessments Includes: Assessments from this encounter Findings - [G44.89 - Other headache syndrome] Chronic Daily Headache - Last Documented On 07/18/2020 3:29PM ; [facility] - [F41.8 - Other specified anxiety disorders] Depression with anxiety - Last Documented On 07/18/2020 3:29PM ; [facility] Medical Equipment - Implanted Devices Includes: Current Devices No Medical Equipment Recorded Medications Includes: Medications discussed during this encounter and other current Medications Discontinued / Stopped on this date GARCIA MARIE-TIARA [employer]-BC on 08/30/2019 PARoxetine HCl 10 MG Oral Tablet Provider: GARCIA DARLINGP-TIARA Diagnosis: Other specified anxiety disorders Last Documented On 3:06PM By GARCIA ECHAVARRIA-TIARA ; [facility] New / Renewed during this visit GARCIA MARIE-TIARA ADRLINGP-BC on 07/18/2020 PARoxetine HCl 10 MG Oral Tablet Provider: GARCIA CANALES [employer]-BC 30 day supply: 30 tablet, 3 refills Diagnosis: Other specified anxiety disorders TAKE 1 TABLET BY MOUTH DAILY Pharmacy: [facility] ([facility] [address] [facility] , [facility], [phone] - Last Documented On 3:29PM By GARCIA SUTTON ; [facility] Current Medications (continue as prescribed) Mirena (52 MG) 20 MCG/24HR Intrauterine Intraute rine device 07/06/2019 Provider: Diagnosis: inserted by Dr. Moran at [facility] Last Documented On 07/06/2019 9:17AM By Heide CHAHAL ; [facility] Past Medications on file Ergocalciferol 1.25 MG (5000 0 UT) Oral Capsule 06/12/2020 - 11/27/2020 Provider: GARCIA CULLEN PMHNP-BC [employer] Diagnosis: 1 q week Last Documented On 1 1:54PM By GARCIA FONTENOT [facility] ; [facility] BD Eclipse Syringe 25G X 5/8 3 ML Miscellaneous 06/10/2020 - 12/07/2020 Provider: GARCIA JOHNSTON PMHNP-BC [employer] Diagnosis: 1 syringe to be used with monthly b12 injection Last Documented On 1 1:43PM [facility] Cyanocobalamin 1000 MCG/ML Injection Solution 06/10/2020 - 12/07/2020 Provider: GARCIA CULLEN PMHNP-BC [employer]BC Diagnosis: 1ml IM once per month Last Documented On 1 1:39PM [facility] ; [facility] Medications Administered Includes: Administered Medications from this encounter No Administered Medications Recorded Vital Signs Includes: Vital Signs from this encounter Vital Name 07/18/2020 02:18P Blood Pressure Sitting (mmHg) 124/60 Temp-Oral (F) 98.1 Height (in) 67 Weight (lb) 172 Body Mass Index (kg/m2) 26.9 Body Surface Area (m2) 1.9 Last Documented: On 07/18/2020 2:23PM ; [facility] Results Includes: Results discussed during this encounter No Results Recorded For Specified Dates History of Present Illness Includes: History of Present Illness from this encounter EVIE GANDHI is a 34 year old female. - Allergy list reviewed - Medication reconciliation performed - Duration of symptoms chronic issue - Previously well - Not feeling tired - No fever - No chills - Headache on entire right side - Which is dull/aching/boring - Mild - Chronic/recurring - At the present time - Associated with lightheadedness - Preceded by tension - Headache not worse when moving the eyes - Not when moving the head - Not when changing body position - Not when bending over - Not with light - Not with noise - Not with odors - Headache not relieved by medication - Headache not associated with increased sensitivity to light, noise, or odor - With no confusion - With no head congestion - With no neurological symptoms - With no memory disturbance - Anxiety with persistent worry - Which comes and goes - Depression as a chronic condition - Moderate - Not feeling angry - No high irritability - No hostility - Not pessimistic about the future, or brooding about the past - With no feelings of hopelessness - With no feelings of hopelessness /Worthlessness - No loss of pleasure from usual activities - No loss of interest in friends and family - No apathy - Not wishing to be - Not thinking about suicide - Not having a suicide plan - No stated intent to commit suicide - No previous suicide attempt - Able to control anger - No excessive crying Patient presents for a one month follow-up for her headaches. She states that she is still daily headaches that are always on the right side. Patient is taking Excedrin for her headaches with no benefit. Patient states that she is not sleeping well and feels it is a combination of headaches and stress. Patient states the Paxil is helping with her anxiety. She would like to continue her current regimen. Would like referral to neurologist Dr. 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 Last Documented On 1 2:18PM ; [facility] Sexually active with partners in the las t year BOY FRIEND 09/16/2011 Last Documented On 1 2:18PM ; [facility] Single 09/16/2011 Last Documented On 1 2:18PM ; [facility] Exercising regularly walking 07/16/2010 Last Documented On 1 2:18PM ; [facility] 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) 07/16/2010 Last Documented On 1 2:18PM ; [facility] Not smoking 07/16/2010 Last Documented On 1 2:18PM ; [facility] The racial background is 07/16 Last Documented On 1 2:18PM ; [facility] Procedures and Surgical History Includes: Procedures from this encounter Procedures Code Diagnosis Performing Provider Service L ocation Service Date regular exercise Last Documented On 1 2:57PM ; [facility] use of tobacco assessment performed 1000F Last Documented On 1 2:57PM ; [facility] standardized depression screening: negative for symptoms 3351F Last Documented On 1 2:57PM ; [facility] review of medications documented 1160F Last Documented On 1 2:57PM ; [facility] screening for adult depression: impressi on and score four Last Documented On 1 2:57PM ; [facility] Patient verbalizes understanding Last Documented On 1 2:57PM ; [facility] Clinical summary provided to patient Last Documented On 1 2:57PM ; [facility] Surgical History Last Updated No history of appendectomy 04/03/2012 Last Documented On 1 2:18PM ; [facility] No history of cholecystectomy 04/03/2012 Last Documented On 1 2:18PM ; [facility] No history of Loop electrode excision of cervix (LEEP) 04/03/2012 Last Documented On 1 2:18PM ; [facility] No history of total abdominal hysterecto my 04/03/2012 Last Documented On 1 2:18PM ; [facility] No history of tubal ligation 04/03/2012 Last Documented On 1 2:18PM ; [facility] No history of vaginal hysterectomy 04/03 Last Documented On 1 2:18PM ; [facility] Tonsillectomy 04/03/2012 Last Documented On 1 2:18PM ; [facility] Medical History Includes: Medical History addressed during this encounter Description Last Updated No heavy OTC analgesic use 07/06/2019 Last Documented On 1 2:18PM ; [facility] LMP: sporadic, mirena 07/06/2019 Last Documented On 1 2:18PM ; [facility] Asthma MILD --INHALER PRN 05/07/2015 Last Documented On 1 2:18PM ; [facility] 1 living children 03/21/2012 Last Documented On 1 2:18PM ; [facility] An allergy NKDA 03/21/2012 Last Documented On 1 2:18PM ; [facility] An HIV test was not performed 03/21/2012 Last Documented On 1 2:18PM ; [facility] Anemia B-12 INJECTIONS 03/21/2012 Last Documented On 1 2:18PM ; [facility] 1 03/21/2012 Last Documented On 1 2:18PM ; [facility] History of asthma 03/21/2012 Last Documented On 1 2:18PM ; [facility] History of cervical dysplasia COLPO 2008 LOGSIL 03/21/2012 Last Documented On 1 2:18PM ; [facility] History of depression 03/21/2012 Last Documented On 1 2:18PM ; [facility] History of human papilloma v irus infection 08: + HR HPV ~05-19-08: + HPV 03/21/2012 Last Documented On 1 2:18PM ; [facility] No exposure to a contagious disease 03/03 Last Documented On 1 2:18PM ; [facility] No history of chronic reflux esophagitis 03/21/2012 Last Documented On 1 2:18PM ; [facility] No history of dysfunctional uterine blee ding 03/21/2012 Last Documented On 1 2:18PM ; [facility] No history of ectopic 03/21/20 12 Last Documented On 1 2:18PM ; [facility] No history of irritable bowel syndrome 1 05/21/2011 Last Documented On 1 2:18PM ; [facility] No history of pelvic inflammatory diseas e 03/21/2012 Last Documented On 1 2:18PM ; [facility] No history of regional enteritis (Crohn' s ileitis) 03/21/2012 Last Documented On 1 2:18PM ; [facility] No history of urinary tract infection Last Documented On 1 2:18PM ; [facility] No recent change in medical history 03/03 Last Documented On 1 2:18PM ; [facility] Not previously diagnosed with a STD 03/03 Last Documented On 1 2:18PM ; [facility] Not taking OTC medications 03/21/2012 Last Documented On 1 2:18PM ; [facility] Para 1 03/21/2012 Last Documented On 1 2:18PM ; [facility] Previous hospitalizations TONSIL AND ADN OID AGE 12 03/21/2012 Last Documented On 1 2:18PM ; [facility] Vaginal delivery 03/21/2012 Last Documented On 1 2:18PM ; [facility] Family History Includes: Family History addressed during this encounter Description Last Updated Family history unchanged 06/06/2020 Last Documented On 1 2:18PM ; [facility] Maternal history of Cancer GRAND FATHER 05/30/2017 Last Documented On 1 2:18PM ; [facility] Maternal history of family medical histo ry of High Cholesterol 05/30/2017 Last Documented On 1 2:18PM ; [facility] Paternal history of cardiac problems FAT HER & GRAND PARTENTS 05/30/2017 Last Documented On 1 2:18PM ; [facility] Paternal history of family medical histo ry of high blood pressure 05/30/2017 Last Documented On 1 2:18PM ; [facility] Paternal grandmother's history of Diabet es GRANDMOTHER 08/13/2015 Last Documented On 1 2:18PM ; [facility] Paternal grandmother's history of diabet es mellitus 04/02/2015 Last Documented On 1 2:18PM ; [facility] Maternal history of Hypertension 015 Last Documented On 1 2:18PM ; [facility] Paternal history of Hepatitis C 04/02/20 15 Last Documented On 1 2:18PM ; [facility] Paternal history of diabetes mellitus pa ternal grandmother 12/16/2014 Last Documented On 1 2:18PM ; [facility] Family history of Cancer GRAND FATHER Last Documented On 1 2:18PM ; [facility] Family history of cardiac problems FATHE R & GRAND PARTENTS 09/16/2011 Last Documented On 1 2:18PM ; [facility] Family history of Diabetes GRANDMOTHER 0 09/16/2011 Last Documented On 1 2:18PM ; [facility] No family history of hypercholesterolemi a 08/06/2010 Last Documented On 1 2:18PM ; [facility] No family history of hypertension 2010 Last Documented On 1 2:18PM ; [facility] No family history of uterine cancer 10/2010 Last Documented On 1 2:18PM ; [facility] No heart disease 08/06/2010 Last Documented On 1 2:18PM ; [facility] Family medical history of high blood pre ssure 07/16/2010 Last Documented On 1 2:18PM ; [facility] Family medical history of High Cholester ol 07/16/2010 Last Documented On 1 2:18PM ; [facility] No family history of malignant female br east neoplasm 07/16/2010 Last Documented On 1 2:18PM ; [facility] No family history of malignant neoplasm of the large intestine 07/16/2010 Last Documented On 1 2:18PM ; [facility] No family history of malignant neoplasm of the ovary 07/16/2010 Last Documented On 1 2:18PM ; [facility] Review of Systems Includes: Review of Systems from this encounter Systemic: No edema. Head: Headache chronic/recurring. Cardiovascular: No chest pain or discomfort. Pulmonary: No shortness of breath. Neurological: No dizziness. Mental Status Includes: Mental Status from this encounter Description Cognitive functioning was no rmal Oriented to time, place, and person Thought processes were not i mpaired Anxiety Anxiety with persistent worr y Anxiety which comes and goes Not wishing to be Not thinking about suicide Not having a suicide plan No stated intent to commit s uicide No previous suicide attempt Able to control anger The thought content revealed no impairment Depression with anxiety Functional Status Includes: Functional Status from this encounter No Functional Status Recorded Physical Exam Includes: Physical Exam from this encounter Allergies Includes: Active Allergies Substance Type Reaction Onset Date Resolved Date Statu s Vicodin Allergy Skin Rashes / Er uption of skin, Hives / Urticaria 09/22/2011 Active Last Documented On 1 2:23PM ; [facility] traMADol HCl Intolerance Sleeplessness / Insomnia 09/01/2016 Active Last Documented On 1 2:23PM ; [facility] Fioricet Intolerance dizzy 10/06/2016 Active Last Documented On 1 2:23PM ; [facility] Encounters Encounter Provider Location Date Check-In Time Check-Out Time Diagnosis CHECK UP GARCIA FONTENOT [facility]- [employer]-[facility] 07/19/19 21 2:07PM 3:10PM Depression with Anxiety,Chroni c Daily Headache Insurance Includes: Active Insurance Policies Plan Name Member ID Group # Subscriber Relationship Effect aneudy Dates - [facility] [id number] KENZIE GANDHI Self Clinical Notes Includes: Clinical Notes from this encounter No Clinical Notes Recorded
--- OUTSIDE RECORDS SUMMARY | 2024-08-01 11:16 | XMS_ITS | Clinical Summary ---
Author Organization [facility] [email or web address] Address [address] [place] [address] Care Team Providers Care Video Manager Name Role Phone Pema Patel PA-C Primary Care Provider [phone] Sarah Jarrell MD Unavailable [phone] Source Comments [facility],non-owned Affiliates and Associated Physician Practices is amultiple site organization consisting of ambulatory clinics and hospital sitesin [place], [place], [place] and [place]. This disclosure is being madepursuant to the Care Everywhere program and may not contain all information available regarding this patient. Last updated 18.[facility] Allergies No known active allergies Medications * Be aware that medications may not be up to date on this document. Alwaysverify current medications with the patient. Medication Sig Dispensed Refills Start Date End Date Status escitalopram (Lexapro) 20 MG tablet Take 1 (one) tablet by mouth once daily as directed. 02/17/2023 Active cetirizine (ZyrTEC) 10 MG tablet Take 1 (one) tablet by mouth once daily 30 tablet 07/29/2023 Active fluticasone propionate (Flonase) 50 MCG/ACT nasal spray [place] 2 (two) sprays into each nostril once daily 16 g 07/29/2023 Active fluconazole (Diflucan) 150 MG tablet Take 1 (one) tablet by mouth every 3 days 2 tablet 04/14/2024 Active Active Problems Patient Care Coordination No te Formatting of this note migh t be different from the original. LR NIPT; Female Problem Noted Date Diagnosed Date Threatened labor 03/06/2018 Polyhydramnios, antepartum complication 02/18/20 18 Supervision of high-risk of young shikha igravida 10/05/2017 Overview (10/05/2017): Dating: LMP of 06/18/17 = 12w3d u/s with CRL of 5.93cm (within 2 days of LMP date)-->[facility]ERRA 03/25/18 A+/Imm/-/- HIV NR Antibody screen: negative H/H/P: 13.1/39.7/346 (09/03/17) CT/GC: neg/neg History of pre-eclampsia 10/04/2017 Overview (10/05/2017): G2 History of placenta abruption 10/04/2017 Overview (10/05/2017): G2 at 35 weeks with preeclampsia cystic hygroma 10/03/2017 Family History Medical History Relation Name Comments Cancer - Stomach Maternal Grandfather CAD (Coronary Artery Disease) Maternal Grandmother CVA Maternal Grandmother Hypertension Maternal Grandmother Cancer - Stomach Maternal Uncle Cancer - Breast Paternal Aunt 1 Cancer - Breast Paternal Aunt 2 Cancer - Breast Paternal Grandmother Relation Name Status Comments Maternal Grandfather Maternal Grandmother Maternal Uncle Alive Paternal Aunt 1 Alive Paternal Aunt 2 Alive Paternal Grandmother Social History Tobacco Use Types Packs/Day Years Used Date Smoking Tobacco: Never Smokeless Tobacco: Never Tobacco Cessation:Counseling Given: Not Answered Alcohol Use Standard Drinks/Week Comments No 0 (1 standard drink = 0.6 oz pur e alcohol) PHQ-2 Answer Date Recorded Patient Health Questionnaire-2 Score 0 04/14/2024 Sex and Gender Information Value Date Recorded Sex Assigned at Not on file Gender Identity Not on file Sexual Orientation Not on file Last Filed Vital Signs Vital Sign Reading Time Taken Comments Blood Pressure 106/68 06/23/2023 1:49 PM MEDICAL CLAIMS ANALYST Pulse 78 06/23/2023 1:49 PM MEDICAL CLAIMS ANALYST Temperature 36.7 C (98 F) 06/23/2023 1:49 PM MEDICAL CLAIMS ANALYST Respiratory Rate 17 03/06/2018 10:19 AM MEDICAL CLAIMS ANALYST Oxygen Saturation 99% 05/03/2023 12:53 PM MEDICAL CLAIMS ANALYST Inhaled Oxygen Concentration - - Weight 82.6 kg (182 lb) 06/23/2023 1:49 PM MEDICAL CLAIMS ANALYST Height 170.2 cm (5' 7 ) 06/23/2023 1:49 PM MEDICAL CLAIMS ANALYST Body Mass Index 28.51 06/23/2023 1:49 PM MEDICAL CLAIMS ANALYST Plan of Treatment Health Maintenance Due Date Last Done Comments PAP SMEAR 1987 HIV SCREENING 11/27/2002 HEPATITIS C SCREENING 11/23/2005 DTAP/TDAP/TD VACCINES (1 - Tdap) 11/27/2006 HEPATITIS B VACCINE (1 of 3 - 19+ 3-dose series) 11/27/2006 COVID-19 VACCINE (1 - season) 2024 DEPRESSION SCREENING 05/02/2024 07/29/2023 ZOSTER VACCINE (1 of 2) 11/27/2037 INFLUENZA VACCINE Completed 02/01/2024, , 02/01/2022, Additional history exists HIB VACCINE Aged Out No longer eligi ble based on patient's age to complete this topic HPV VACCINE Aged Out No longer eligi ble based on patient's age to complete this topic MENINGOCOCCAL (Group B) VACCINE SHARED DECISION-MAKING Aged Out No longer eligible based on patient's age to complete this topic MENINGOCOCCAL GROUPS A/C/Y/W VACCINE Aged Out No longer eligible based on patient's age to complete this topic PNEUMOCOCCAL VACCINE Aged Out No long er eligible based on patient's age to complete this topic Care Teams Video Manager Relationship Specialty Start Date End Date Pema Patel PA-C [address] [address] PCP - General Physician Strapper And Buffer 08/26/21 Sarah Jarrell MD [address] [place] [address] Physician Obstetrics and Gynecology 08/26/21
[2024-08-01 13:22] LABS: Alanine Aminotransferase 17 U/L (6-35); Albumin Level 4.5 g/dL (3.5-5.1); Alkaline Phosphatase 45 U/L (38-126); Anion Gap 9 mmol/L (4-12); Aspartate Amino Transferase 36 U/L (14-36); Bilirubin,Total 0.5 mg/dL (0.2-1.3); Blood Urea Nitrogen 7 mg/dL (7-17); Calcium 9.3 mg/dL (8.4-10.2); Carbon Dioxide 25 mmol/L (22-30); Chloride 106 mmol/L (98-107); Cholesterol 156 mg/dL (0-200); Estimated Glomerular Filt Rate > 60; Glucose 83 mg/dL (65-110); HDL Direct 68 mg/dL; Sodium 140 mmol/L (137-145); Triglycerides 52 mg/dL (<150)
[2024-08-01 13:28] LABS: Basophils Absolute Auto 0.1 K/mm3 (0.0-0.1); Basophils Percent Auto 1.2 % (0.2-1.2); Eosinophils Absolute Auto 0.1 K/mm3 (0-0.3); Eosinophils Percent Auto 3.3 % (0-4.4); Hematocrit 38.4 % (37.0-47.0); Hemoglobin 12.1 g/dL (12.0-15.0); Immature Granulocyte Absolute 0.01 K/mm3 (0.00-0.031); Immature Granulocyte Percent A 0.2 % (0-0.5); Lymphocytes Absolute Auto 1.76 K/mm3 (0.9-3.2); Lymphocytes Percent Auto 40.9 % (18.3-44.2); Mean Corpuscular HGB Conc 31.5 g/dl (32-36); Mean Corpuscular Hemoglobin 28.2 pg (26-34); Mean Corpuscular Volume 89.5 fl (80-100); Mean Platelet Volume 11.3 fl (7.4-10.4); Monocytes Absolute Auto 0.4 K/mm3 (0.1-0.6); Monocytes Percent Auto 9.1 % (2.6-8.5); Neutrophils Percent Auto 45.3 % (45.5-73.1); Platelet Count Result 287 k/mm3 (150-375); Red Blood Count 4.29 M/mm3 (4.2-5.4); Red Cell Distribution Width 13.8 % (11.5-14.5); White Blood Count 4.3 K/mm3 (4.5-10.0)
[2024-08-01 13:33] LABS: LDL Cholesterol Direct 64 mg/dL
[2024-08-01 14:05] LABS: Add Urine Microscopic? YES; Appearance Urine Clear (Clear); Bacteria Urine Rare /hpf; Bilirubin Urine Negative (Negative); Blood Urine Negative (Negative); Color Urine Yellow (Yellow); Glucose Urine UA Negative (Negative); Ketones Urine Negative (Negative); Leukocyte Esterase Ur 2+ LEU/UL (Negative); Need Manual Microscopic Reviewed; Nitrate Urine Negative (Negative); Non Pathogenic Casts 0-2; Protein Urine Negative (Negative); RBC Urine 0-2 /hpf (0-2); Specific Grav Ur 1.008 (1.001-1.035); Squamous Epithelial Cell Urine Occasional /hpf (Few); Urobilinogen Urine 0.2 mg/dL (<2.0); WBC Urine 0-5 /hpf (0-3); pH Urine 7.5 (5.0-9.0)
== END 2024-08-01 10:03 | disposition home or self-care (01) ==
LOC: ANHGOSHLAB 10:03
PROVIDERS: PCP Internal Medicine; Visit Provider Nurse Practitioner
DX: R30.0 Dysuria (principal); F41.9 Anxiety disorder, unspecified; Z13.220 Encounter for screening for lipoid disorders; Z13.29 Encounter for screening for other suspected endocrine disorder; E55.9 Vitamin D deficiency, unspecified
CPT/HCPCS: 36415; 80053; 80061; 81001; 84443; 85025; 87086

== ENCOUNTER 2024-11-08 09:06 | Outpatient (CLI) | payer OTHER, SELFPAY ==
--- OUTSIDE RECORDS SUMMARY | 2024-11-08 09:16 | XMS_ITS | Clinical Summary ---
Author Organization [facility] Address [address] [place] [address] Care Team Providers Care Continuous Washer Operator Name Role Phone Pema Patel Primary Care Provider [phone] Allergies No known active allergies Medications escitalopram [...] 06/05/2023 Assessment & Plan (06/05/2023 10:32 PM SHOCK ABSORPTION FLOOR LAYER): Patient's symptoms seem most consistent with vertigo. [...] 06/05/2023 Assessment & Plan (06/05/2023 10:31 PM SHOCK ABSORPTION FLOOR LAYER): Check labs Moderate episode of recurrent major depressive d isorder 06/05/2023 Assessment & Plan (06/05/2023 10:25 PM SHOCK ABSORPTION FLOOR LAYER): Continue Lexapro 20 Spotting during 04/11/2023 Vaginal discharge 04/11/2023 Arthralgia of right knee 03/07/2023 Rash 11/15/2022 Vitamin B12 deficiency (non anemic) 08/02/2022 Assessment & Plan (06/05/2023 10:13 PM SHOCK ABSORPTION FLOOR LAYER): Supplement Electrocardiogram abnormal 07/25/2022 Essential hypertension 07/25/2022 Assessment & Plan (06/05/2023 10:13 PM SHOCK ABSORPTION FLOOR LAYER): Bp is stable/in acceptable range for any co-morbidities. Encouraged to limit sodium intake and exercise for weight control. Has been managed without medication. Continue to monitor closely Generalized anxiety disorder 07/25/2022 Intermittent palpitations 07/25/2022 Vitamin D deficiency 07/25/2022 Assessment & Plan (06/05/2023 10:13 PM SHOCK ABSORPTION FLOOR LAYER): Supplement Acute upper respiratory infection 06/24/2022 Positive antinuclear antibody 06/06/2022 Cobalamin deficiency 06/06/2022 Leukopenia 05/26/2022 Flu vaccine need 03/14/2022 Assessment & Plan (03/14/2022 3:19 PM SHOCK ABSORPTION FLOOR LAYER): Updated in the office today Easy bruising [...] 10/25/2021 Assessment & Plan (03/14/2022 3:17 PM SHOCK ABSORPTION FLOOR LAYER): Continue with Lexapro as symptoms are stable. [...] 08/15/2021 Assessment & Plan (03/14/2022 3:17 PM SHOCK ABSORPTION FLOOR LAYER): Patient still has had presyncopal type symptoms. Was referred to racing mechanic at her last visit but was not able to keep that appointment up in [facility] due to stressors at home. Will make referral to the [facility] Cardiology for further evaluation. [...] She would like to follow-up with a racing mechanic that her mother is seen up in [facility]. Provided a referral. Patient is going to [...] 08/14/2021 Assessment & Plan (06/05/2023 10:11 PM SHOCK ABSORPTION FLOOR LAYER): Weight/BMI is in healthy range. Continue healthy lifestyle to maintain. Assessment & Plan (03/14/2022 3:16 PM SHOCK ABSORPTION FLOOR LAYER): Weight/BMI is in healthy range. Continue healthy [...] 08/23/2020 Assessment & Plan (06/05/2023 10:11 PM SHOCK ABSORPTION FLOOR LAYER): Probably multifactorial. Check labs and followup to [...] unspecified Assessment & Plan (06/05/2023 10:11 PM SHOCK ABSORPTION FLOOR LAYER): Stressed importance of eating small meals multiple [...] onset of sxs. Check COVID/FLU test thru [facility] collection site in [place]. Let pt know the newest CDC recommendations [...] on file Legal Sex Female 2:35 AM SHOCK ABSORPTION FLOOR LAYER Gender Identity Female 08/14/2020 6:36 AM CDT Sexual Orientation Straight 08/14/2020 6: 36 AM CDT Occupation Industry Job Start Date Job End Date Stay at home Not on file Not on file Not on file Obstetrics History Last Filed Vital Signs Vital Sign Reading Time Taken Comments Blood Pressure 122/78 05/25/2023 9:24 AM SHOCK ABSORPTION FLOOR LAYER Pulse 68 05/25/2023 9:24 AM SHOCK ABSORPTION FLOOR LAYER Temperature 36.9 C (98.5 F) 05/25/2023 9:24 AM SHOCK ABSORPTION FLOOR LAYER Respiratory Rate 18 12/07/2021 4:41 PM CDT Oxygen Saturation 99% 05/25/2023 9:24 AM SHOCK ABSORPTION FLOOR LAYER Inhaled Oxygen Concentration - - Weight 82.1 kg (181 lb) 05/25/2023 9:24 AM SHOCK ABSORPTION FLOOR LAYER Height 167.6 cm (5' 6) 05/25/2023 9:24 AM SHOCK ABSORPTION FLOOR LAYER Body Mass Index 29.21 05/25/2023 9:24 AM SHOCK ABSORPTION FLOOR LAYER Plan of Treatment Health Maintenance Due Date Last Done Comments Cervical Cancer Screening 1987 Varicella Vaccines (1 of 2 - 13+ 2-dose series) 11/27/2000 Regular Well Visit/Exam 18-64 08/14/2022 08/14/2021, 08/20/2020 Depression Screening 05/25/2024 05/25/2023, 05/25/2023, 12/28/2021, Additional history exists Influenza Vaccine (Season Ended) 2024 03/11/2022, 02/01/2022, 01/20/2018, Additional history exists DTaP/Tdap/Td Vaccine (3 - [...] RNA. Detection and Quantitation by Real-Time Reverse Parks And Recreation Manager-PCR.Current Interpretive data was last revised on 2016. Blood specimen (specimen) 08/17/2017 10:28 AM CDT 08/17/2017 11:38 AM CDT Narrative CORINNE SARGENT - 08/17/2017 2:17 PM CDT Cici Levine NP LAB MICROBIOLOGY - GENERAL ORDERABLES Edited Result - Final CORINNE [facility] Department [place] [address] from Last 3 Months or Most Recently Relevant to Health Maintenance Insurance Care Teams Continuous Washer Operator Relationship Specialty Start Date End Date Pema Patel PA [address] [place] [address] PCP - General Internal Medicine 05/25/23
--- OUTSIDE RECORDS SUMMARY | 2024-11-08 09:16 | XMS_ITS | Clinical Summary ---
Author Organization [facility] Address [address] [place] [address] Phone Care Team Providers Care Developer Programmer Analyst Name Role Phone Dulce Boss MD Primary Care Provider [phone] Allergies No known active allergies Medications azithromycin [...] Comments Blood Pressure 106/62 03/22/2017 6:00 PM GREEK PROFESSOR Pulse 65 03/22/2017 6:15 PM GREEK PROFESSOR Temperature 37.2 C (98.9 F) 03/22/2017 6:27 PM GREEK PROFESSOR Respiratory Rate 18 03/22/2017 4:59 PM GREEK PROFESSOR Oxygen Saturation 100% 03/22/2017 6:15 PM GREEK PROFESSOR Inhaled Oxygen Concentration - - Weight 72.6 kg (160 lb) 03/22/2017 4:59 PM GREEK PROFESSOR Height 170.2 cm (5' 7) 03/22/2017 4:59 PM GREEK PROFESSOR Body Mass Index 25.06 03/22/2017 4:59 PM GREEK PROFESSOR Plan of Treatment Health Maintenance Due Date Last Done Comments Hepatitis C Virus (HCV) Screening 1985 Human Papillomavirus (HPV) Immunization (1 - 3-dose series) 11/27/2002 Pap Smear 11/27/2008 Cervical Cancer Screening (CCS) 11/27/2017 HPV/Cotest 11/27/2017 SARS-COV-2 Immunization ( season) 2024 Influenza Immunization (#1) 12/31/202401/01, 01/16/2016, 07/04/2015 Respiratory Syncytial Virus (RSV) Immunization (Adult) (1 [...] age to complete this topic Insurance MEDICAID [facility] PLAN Care Teams Developer Programmer Analyst Relationship Specialty Start Date End Date Dulce Boss MD [address] [place] [address] PCP - General 04/02/15
--- OUTSIDE RECORDS SUMMARY | 2024-11-08 09:16 | XMS_ITS | Referral Summary ---
Author Organization [facility] Address [address] [place] [address] Care Team Providers Care Kennel Manager Name Role Phone Pema Patel Primary Care Provider [phone] Allergies No known active allergies Medications escitalopram [...] 06/05/2023 Assessment & Plan (06/05/2023 10:32 PM LOCOMOTIVE CRANE ENGINEER): Patient's symptoms seem most consistent with vertigo. [...] 06/05/2023 Assessment & Plan (06/05/2023 10:31 PM LOCOMOTIVE CRANE ENGINEER): Check labs Moderate episode of recurrent major depressive d isorder 06/05/2023 Assessment & Plan (06/05/2023 10:25 PM LOCOMOTIVE CRANE ENGINEER): Continue Lexapro 20 Spotting during 04/11/2023 Vaginal discharge 04/11/2023 Arthralgia of right knee 03/07/2023 Rash 11/15/2022 Vitamin B12 deficiency (non anemic) 08/02/2022 Assessment & Plan (06/05/2023 10:13 PM LOCOMOTIVE CRANE ENGINEER): Supplement Electrocardiogram abnormal 07/25/2022 Essential hypertension 07/25/2022 Assessment & Plan (06/05/2023 10:13 PM LOCOMOTIVE CRANE ENGINEER): Bp is stable/in acceptable range for any co-morbidities. Encouraged to limit sodium intake and exercise for weight control. Has been managed without medication. Continue to monitor closely Generalized anxiety disorder 07/25/2022 Intermittent palpitations 07/25/2022 Vitamin D deficiency 07/25/2022 Assessment & Plan (06/05/2023 10:13 PM LOCOMOTIVE CRANE ENGINEER): Supplement Acute upper respiratory infection 06/24/2022 Positive antinuclear antibody 06/06/2022 Cobalamin deficiency 06/06/2022 Leukopenia 05/26/2022 Flu vaccine need 03/14/2022 Assessment & Plan (03/14/2022 3:19 PM LOCOMOTIVE CRANE ENGINEER): Updated in the office today Easy bruising [...] 10/25/2021 Assessment & Plan (03/14/2022 3:17 PM LOCOMOTIVE CRANE ENGINEER): Continue with Lexapro as symptoms are stable. [...] 08/15/2021 Assessment & Plan (03/14/2022 3:17 PM LOCOMOTIVE CRANE ENGINEER): Patient still has had presyncopal type symptoms. Was referred to provider relations consultant at her last visit but was not able to keep that appointment up in [facility] due to stressors at home. Will make referral to the [facility] Cardiology for further evaluation. [...] She would like to follow-up with a provider relations consultant that her mother is seen up in [facility]. Provided a referral. Patient is going to [...] 08/14/2021 Assessment & Plan (06/05/2023 10:11 PM LOCOMOTIVE CRANE ENGINEER): Weight/BMI is in healthy range. Continue healthy lifestyle to maintain. Assessment & Plan (03/14/2022 3:16 PM LOCOMOTIVE CRANE ENGINEER): Weight/BMI is in healthy range. Continue healthy [...] 08/23/2020 Assessment & Plan (06/05/2023 10:11 PM LOCOMOTIVE CRANE ENGINEER): Probably multifactorial. Check labs and followup to [...] unspecified Assessment & Plan (06/05/2023 10:11 PM LOCOMOTIVE CRANE ENGINEER): Stressed importance of eating small meals multiple [...] onset of sxs. Check COVID/FLU test thru [facility] collection site in [place]. 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 Not on file Not on file Not on file Last Filed Vital Signs Vital Sign Reading Time Taken Comments Blood Pressure 122/78 05/25/2023 9:24 AM LOCOMOTIVE CRANE ENGINEER Pulse 68 05/25/2023 9:24 AM LOCOMOTIVE CRANE ENGINEER Temperature 36.9 C (98.5 F) 05/25/2023 9:24 AM LOCOMOTIVE CRANE ENGINEER Respiratory Rate 18 12/07/2021 4:41 PM CDT Oxygen Saturation 99% 05/25/2023 9:24 AM LOCOMOTIVE CRANE ENGINEER Inhaled Oxygen Concentration - - Weight 82.1 kg (181 lb) 05/25/2023 9:24 AM LOCOMOTIVE CRANE ENGINEER Height 167.6 cm (5' 6) 05/25/2023 9:24 AM LOCOMOTIVE CRANE ENGINEER Body Mass Index 29.21 05/25/2023 9:24 AM LOCOMOTIVE CRANE ENGINEER Plan of Treatment Not on file Procedures [...] RNA. Detection and Quantitation by Real-Time Reverse Master Chef-PCR.Current Interpretive data was last revised on 2016. Blood specimen (specimen) 08/17/2017 10:28 AM CDT 08/17/2017 11:38 AM CDT Narrative CORINNE MCDOWELL - 08/17/2017 2:17 PM CDT Cici Levine NP LAB MICROBIOLOGY - GENERAL ORDERABLES Edited Result - Final [facility] Department [place] [address] from Last 3 Months or Most Recently Relevant to Health Maintenance Insurance [facility] Care Teams Kennel Manager Relationship Specialty Start Date End Date Pema Patel PA [address] [facility] [address] [place] [address] PCP - General Internal Medicine 05/25/23
--- OUTSIDE RECORDS SUMMARY | 2024-11-08 09:16 | XMS_ITS | Data Portability ---
Author Organization [place] [employer], Main Office Address [address] [place] [address] Care Team Providers Care Cat Skinner Name Role Phone JANETT GRAY Primary Care Provider JANETT GRAY Referring Provider [phone] Assessment Encounter Date Assessment Date Assessment LastModified by Organization Details LastModified Time 05/17/2024 05/17/2024 Assessment: Mild OSAHS, AHI = 3 Plan: The following were reviewed and explained to the patient: primary care/referral note [facility] home sleep study 05/15/24 AHI = 3 [...] disease severity. There could also be substantial qdmew-uj-xqexn variability in the AHI that can lead [...] Organization Details Last Modified Time Details Appointments None recorded. Lab None recorded. Referral pulmonologi st referral - Please call patient to schedule. HST results pending 2024 025 Ivonne Marcelo [facility] [address], [facility], [place], [address], 16:18:37 Procedures upper endoscopy procedure (EGD) (PROC) 2023 024 [facility] (Pre-Screen), [address] [place], [address], 13:58:25 Surgeries None recorded. Imaging home sleep study - Please call patient to arrange. 2024 025 [facility], [address] [place], [address], 5 17:45:14 CT, abdomen + pelvis, w/wo contrast 2023 024 [email or web address] [facility] (One Call Scheduling), [address], [place], [address], 4 08:42:17 Medication Orders fluoxetine 20 mg tablet 2024 025 [facility], [address] [facility], [place], [address], 5 11:03:24 Bactrim DS 800 mg-160 mg tablet 2024 025 [id number], [address] , [place], [address], 5 14:21:52 Diflucan 150 mg tablet 2024 025 [id number], [address] [place], [address], 5 14:21:54 propranolol 10 mg tablet 2024 025 [id number] [address] , [place], [address], 5 10:51:47 Patient TargetsNo targets recorded. Patient Instructions Encounter Date Encounter Id Patient Instructions Last Modified By Organization Details Last Modified Time 02/13/2024 [id number] Follow up in 3 months Tests: Referral: Recommend: Not available 02/13/2024 11:20:56 04/09/2024 [id number] PT WITH DYSPHAGI A. R/O EoE / H. PYLORI/ STRICTURE / MOTILITY D/O . RECOMMEND EGD /MBS. . Risks benefits and complications were explained to the pt. ( BLEEDING PERFORATION , INFECTION , ). PT VERBALIZES UNDERSTANDING AND IS WILLING TO PROCEDE . 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 Please call patient to schedule.HST results pending Referring Physician: Chrissie Lira, Internal Medicine, Encounter Date: 05/10/2024 Results Created Date Observation Date Name Description Value Unit Range Abnormal Flag Note LastModifiedBy Organization Detail LastModifiedTime 02/01/2002/01/2024 urina lysis , dipst ick Leukocytes (reference range: negative naveen/ l) Trace Not Available [address], [place], [address], 02/01/2024 14:10:14 02/01/2002/01/2024 urina lysis , dipst ick Nitrite (reference rage: negative mg/dl) negati ve Not Available [address], [place], [address], 02/01/2024 14:10:14 02/01/2002/01/2024 urina lysis , dipst ick Urobilinogen (reference range: 0.2-1 mg/dl) 0.2 Not Available [address], [place], [address], 02/01/2024 14:10:14 02/01/2002/01/2024 urina lysis , dipst ick Protein (reference range: negative mg/dl) Negati ve Not Available [address], [place], [address], 02/01/2024 14:10:14 02/01/2001/3102/01/2024 urina lysis , dipst ick pH (reference range: 5-7) 6.0 Not Available [address], [place], [address], 02/01/2024 14:10:14 02/01/2002/01/2024 urina lysis , dipst ick Blood (reference range: negative Jay/ l) Modera te Not Available [address], [place], [address], 02/01/2024 14:10:14 02/01/2002/01/2024 urina lysis , dipst ick Specific Victor (reference range: 1.005-1.030) 1.005 Not Available [address], [place], [address], 02/01/2024 14:10:14 02/01/2002/01/2024 urina lysis , dipst ick Ketone (reference range: negative mg/dl) Negati ve Not Available [address], [place], [address], 02/01/2024 14:10:14 02/01/2002/01/2024 urina lysis , dipst ick Bilirubin (reference range: negative mg/dl) Trace Not Available [address], [place], [address], 02/01/2024 14:10:14 02/01/2002/01/2024 urina lysis , dipst ick Glucose (reference range: negative mg/dl) Negati ve Not Available [address], [place], [address], 02/01/2024 14:10:14 02/01/2001/3102/01/2024 urina lysis , dipst ick Appearance Clear Not Available [facility] [address], [place], [address], 02/01/2024 14:10:14 02/01/20 24 02/01/2024 urina lysis , dipst ick Color Dark Yellow Not Available [facility] [address], [place], [address], 02/01/2024 14:10:14 05/10/19 25 05/10/2024 urina lysis , dipst ick Leukocytes (reference range: negative naveen/ l) Trace Not Available [facility] Internal [facility] [address] [facility], [place], [address], 05/10/2024 10:22:45 05/10/19 25 05/10/2024 urina lysis , dipst ick Nitrite (reference rage: negative mg/dl) negati ve Not Available [facility] [address] [facility], [place], [address], 05/10/2024 10:22:45 05/10/19 25 05/10/2024 urina lysis , dipst ick Urobilinogen (reference range: 0.2-1 mg/dl) 0.2 Not Available [facility] [address] [facility], [place], [address], 05/10/2024 10:22:45 05/10/19 25 05/10/2024 urina lysis , dipst ick Protein (reference range: negative mg/dl) Negati ve Not Available [facility] [place] [address] [facility], [place], [address], 05/10/2024 10:22:45 05/10/19 25 05/10/2024 urina lysis , dipst ick pH (reference range: 5-7) 5.[address] [facility] [address], [place], [address], 05/10/2024 10:22:45 05/10/19 25 05/10/2024 urina lysis , dipst ick Blood (reference range: negative Jay/ l) Negati ve Not Available [facility] [address], [place], [address], 05/10/2024 10:22:45 05/10/19 25 05/10/2024 urina lysis , dipst ick Specific Victor (reference range: 1.005-1.030) 1.005 Not Available [facility] Internal [facility] [address] [facility], [place], [address], 05/10/2024 10:22:45 05/10/19 25 05/10/2024 urina lysis , dipst ick Ketone (reference range: negative mg/dl) Negati ve Not Available [facility] Internal [facility] [address], [place], [address], 05/10/2024 10:22:45 05/10/19 25 05/10/2024 urina lysis , dipst ick Bilirubin (reference range: negative mg/dl) Negati ve Not Available [facility] [address], [place], [address], 05/10/2024 10:22:45 05/10/19 25 05/10/2024 urina lysis , dipst ick Glucose (reference range: negative mg/dl) Negati ve Not Available [facility] [address] [facility], [place], [address], 05/10/2024 10:22:45 05/10/19 25 05/10/2024 urina lysis , dipst ick Appearance Slight ly Cloudy Not Available [facility] [address] [facility], [place], [address], 05/10/2024 10:22:45 05/10/19 25 05/10/2024 urina lysis , dipst ick Color Yellow Not Available [facility] Med [facility] [address], [place], [address], 05/10/2024 10:22:45 02/15/20 24 02/14/2024 XR, abdom en + pelvi s No observ ation record ed. [facility] (Radiology) [address] [place], [address], 02/15/2024 17:31:35 05/16/19 25 05/15/2024 home sleep study No observ ation record ed. [facility] [address] [place], [address], 05/16/2024 17:45:14 07/05/19 25 07/02/2024 XR, ankle , 3 or more view No observ ation record ed. [facility] (Imaging) [address] [place], [address], 07/04/2024 15:41:33 Result Notes None recorded. Problems Name Problem SNOMED Code Status Onset Date Resolution Date Notes Provider Name and Address Organization Details Recorded Time Anti-nucl ear factor detected 868395695 Active 2022 Chrissie Lira APRN [address], [facility], [place], [address] , [place] [facility] [employer] 4 08:09:01 Pre-exist ing hypertens ion complicat ing , childbirt h and puerperiu m 961596078 Active Not Available [employer] 3 08:22:50 Spotting per vagina in 635126879 Completed Not Available [facility] 3 08:49:10 08203943 Completed 201711/29/2017 Not Available [facility] 3 08:49:10 Intermitt ent palpitati ons 220099531 Active 2022 Not Available [facility] 3 08:22:50 Generaliz ed anxiety disorder 59823697 Active 2022 Chrissie Lira APRN [address], [place], [address] , [employer] 4 08:09:09 Essential hypertens ion 51437878 Active 2022 Chrissie Lira APRN [address], [place], [address] , [employer] 4 08:09:05 Vitamin B12 deficienc y (non anemic) 87787349 Active 2022 Chrissie Lira APRN [address], [place], [address] , [employer] 4 08:09:25 Rupture of anterior cruciate ligament 257928666 Active Chrissie Lira APRN [address], [place], [address] , [employer] 4 08:03:02 Tear of lateral meniscus of knee 371571520 Active [address], [place], [address] , [employer] 4 08:03:02 Sleep apnea 91634643 Active 2024 Chrissie Lira APRN [address], [place], [address] , [employer] 5 10:50:12 Obstructi ve sleep apnea syndrome 10193385 Active 2024 Luke Beebe MD [address], [place], [address] , [employer] 5 14:33:48 Vitamin D deficienc y 96356296 Active 2024 Chrissie MOSES Lira [address] [address], [place], [address] , [facility] [employer] [facility] 5 14:21:53 Pain of left ankle joint 78209806853 117861 Active 2024 Chrissie MOSES Lira [address] [address], [place], [address] , [facility] [employer] [facility] 5 08:34:52 Notes:Medical History: Anxie ty Intermittent palpitations (+) speckled ROMAN >1:1280 Mild OSAHS, AHI = 3, 05/15/24 Mild TX/TR PASP 32 mmHg Hypertension with EF 60% CHAPIS Vit B12 deficiency Right lateral meniscus tear Right ACL tear Right vastus lateralis musculotendinous junction tear Right ruptured popliteal fossa cyst Procedure History: T&A 1996 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 Smith CNA [facility] [employer] [facility] 03/08/2023 11:05:04 tonsilecto my/adenoid s completed Georgia Smith CNA [facility] [employer] [facility] 03/08/2023 11:04:36 Imaging Results None recorded. Procedure Notes None recorded. Medical Equipment None Reported. Allergies Allergen ID Allergen Name Allergen Category Reaction Reaction Severity Criticality Documentation Date Start Date Code Code System Note Provider Name and Address Organization Details Recorded Time 79021 No known allergy (situatio n) Not available Not available Not available Not available 10/26/2023 77728 6003 SNOMED Chrissie MOSES Lira [address] [address], [place], [address], [facility] [employer] [facility] 4 08:00:36 No known drug allergies Medications Name [...] No t Available meloxicam 15 mg tablet 10/25 completed Not Available Not [...] Available No t Available fluoxetine 20 mg capsule TAKE 1 CAPSULE BY MOUTH DAILY active Not Available Not Available No t [...] in Arterial blood by Pulse oximetry Systolic And Diastolic Provider Name and Address Organization Details Last Updated DateTime 5 167.64 cm 27 kg/m2 78263.9 3 g 97.3 [degF] 70 /min 99 % 99 % 114/66 mm[Hg] Mariann Varma MA [facility] [employer] 5 10:20:33 Date Recorded Heart rate Respiratory rate Provider N kofi and Address Organization Details Last Updated DateTime 05/17/2024 63 /min 15 /min Luke Beebe MD [address] [place] [address], [address], [facility] [employer] 05/17/2024 14:28:54 Date Recorded Body height Body mass index (BMI) Body weight Body temperature Heart rate Oxygen saturation Oxygen saturation in Arterial blood by Pulse oximetry Systolic And Diastolic Provider Name and Address Organization Details Last Updated DateTime 5 167.64 cm 27.6 kg/m2 64313.3 g 98.1 [degF] 63 /min 98 % 98 % 116/68 mm[Hg] Griselda Tee MA [place] [email or web address] [email or web address] [employer] 5 14:12:19 Date Recorded Body height Body mass index (BMI) Body weight Body temperature Heart rate Oxygen saturation Oxygen saturation in Arterial blood by Pulse oximetry Systolic And Diastolic Provider Name and Address Organization Details Last Updated DateTime 5 167.64 cm 27.1 kg/m2 70854.5 2 g 97.4 [degF] 74 /min 99 % 99 % 100/60 mm[Hg] Mariann Varma MA [facility] [employer] 5 10:47:19 Date Recorded Body height Body mass index (BMI) Body weight Body temperature Heart rate Oxygen saturation Oxygen saturation in Arterial blood by Pulse oximetry Systolic And Diastolic Provider Name and Address Organization Details Last Updated DateTime 4 167.64 cm 27.1 kg/m2 88263.5 2 g 97.7 [degF] 70 /min 97 % 97 % 114/68 mm[Hg] Mariann Varma MA [facility] [employer] 4 11:07:23 Date Recorded Body height Body mass index (BMI) Body weight Heart rate Oxygen saturation Oxygen saturation in Arterial blood by Pulse oximetry Systolic And Diastolic Provider Name and Address Organization Details Last Updated DateTime 4 167.64 cm 27.3 kg/m2 08221.1 1 g 83 /min 99 % 99 % 112/66 mm[Hg] TIRSO Benitez [place] [email or web address] [email or web address] [employer] [facility] 4 14:13:07 Social History Question Answer Notes LastModified by Organizat ion Details LastModified Time Tobacco Smoking Status Never Smoker Not Available [facility] 06/30/2022 08:44:27 What Is Your Level Of Caffeine Consumption? Heavy MIGRATION.19223 [id number] Information not available 06/30/2022 In The 14 Days Before Symptom Onset, Have You Had Close Contact With A Laboratory-confir med COVID-19 While That Case Was Ill? No MIGRATION.01444 15775 Information not available 06/30/2022 In The 14 Days Before Symptom Onset, Have You Had Close Contact With A Person Who Is Under Investigation For COVID-19 While That Person Was Ill? No MIGRATION.54697 82053 Information not available 06/30/2022 What Type Of Diet Are You Following? REGULAR MIGRATION.79606 13081 Information not available 06/30/2022 What Is The Highest Grade Or Level Of School You Have Completed Or The Highest Degree You Have Received? [id number] MIGRATION.13758 33542 Information not available 06/30/2022 Do You Have An Electrostatic Air Filter? No Information not available 05/17/2024 Have There Been Any Changes To Your Family Or Social Situation? No MIGRATION.29371 73022 Information not available 06/30/2022 What Is The Fluoride Status Of Your Home? Unknown MIGRATION.09155 33097 Information not available 06/30/2022 Are There Any Guns Present In Your Home? Yes MIGRATION.93583 10374 Information not available 06/30/2022 Do You Have A Humidifier? No Information not available 05/17/2024 Do You Use Insect Repellent Routinely? No MIGRATION.65831 25705 Information not available 06/30/2022 Where Do You Live? [place]House MIGRATION.74681 35527 Information not available 06/30/2022 Do You Have Moisture Problems In Your Home? No Information not available 05/17/2024 What Was The Date Of Your Most Recent Tobacco Screening? 06/18/2024 Information not available 06/18/2024 How Many Children Do You Have? 3 Information not available 10/26/2023 Do You Have Any Pets? No MIGRATION.97091 68477 Information not available 06/30/2022 What Is Your Relationship Status? Information not available 10/26/2023 Do You Use Your Seat Belt Or Car Seat Routinely? Yes Information not available 05/17/2024 Do You Have Smoke And Carbon Monoxide Detectors In Your Home? Yes MIGRATION.95223 89827 Information not available 06/30/2022 Are You Passively Exposed To Smoke? No MIGRATION.38072 35498 Information not available 06/30/2022 Are There Any Smokers In Your House? No MIGRATION.28785 65337 Information not available 06/30/2022 Do You Use Sunscreen Routinely? Yes MIGRATION.30838 09946 Information not available 06/30/2022 Have You Recently Traveled Abroad? No MIGRATION.01180 19562 Information not available 06/30/2022 Do You Have Any Dietary Restrictions? No MIGRATION.46745 76248 Information not available 06/30/2022 Sex: Female Functional Status Question Answer Note LastModified by Organizat ion Details LastModified Time Do you use any illicit or recreational drugs? No MIGRATION.880490 6968 Information not available 06/30/2022 Do you or have you ever used any other forms of tobacco or nicotine? No MIGRATION.428960 3303 Information not available 06/30/2022 What is your level of alcohol consumption? Occasional MIGRATION.852350 8893 Information not available 06/30/2022 Are you currently employed? No Information not available 02/01/2024 Have you been exposed to chemicals or toxins? not that aware of Information not available 05/17/2024 What is your exercise level? Moderate MIGRATION.787066 5169 Information not available 06/30/2022 Mental Status Question Answer Note LastModified by Organizat ion Details LastModified Time Do you feel stressed (tense, restless, nervous, or anxious, or unable to sleep at night)? [id number] [facility].[id number] 6 Information not available 06/30/2022 Family History Relationship Description Onset Age of this Age Resolved Age Notes LastModified by Organization Details LastModified Time Maternal Grandmother Cerebrovascu lar accident [email or web address] Not available 14:21:53 Maternal Grandmother Malignant neoplasm of lung [email or web address] Not available 2024 14:22:19 Son Slnfo-0-yvla trypsin deficiency [email or web address] Not available 05/17 14:23:32 [...] HEARING PROBLEMS N MUMPS N SHINGLES N DEPRESSION (INCLUDING POST ) N BOWEL PROBLEMS N STROKE/TIA N ULCERS N BENIGN PROSTATIC HYPERPLASIA N MEASLES N HYPOTENSION N MYOCARDIAL INFARCTION N OBESITY N GERD/NAUSEA N ANEURYSM N URINARY/BLADDER/KIDNEY PROBLEMS N CORONARY ARTERY DISEASE (CAD) N ADDICTION CONCERNS N Impotence N ENDOMETRIOSIS N USE OF BLOOD THINNERS N SKIN [...] GLAUCOMA N FOOT PROBLEM N DIVERTICULITIS N SLEEP APNEA N CHICKENPOX N INFECTIOUS DISEASE N PROSTATE N HEART ARRHYTHMIA N INSOMNIA N HIGH CHOLESTEROL / HYPERLIPIDEMIA N EYE PROBLEMS N HYPERTHYROIDISM N EDEMA N CHRONIC PAIN SYNDROME N HYPOTHYROIDISM N CAROTID BLOCKAGE N CONSTIPATION N BACK / NECK PROBLEMS N HAVE YOU BEEN HOSPITALIZED OR SEEN IN [facility] IN THE PAST YEAR ? N ATHEROSCLEROSIS N BREAST PROBLEMS N DIALYSIS N ECZEMA N OSTEOPOROSIS N ARTHRITIS N NO SIGNIFICANT PAST MEDICAL HISTORY N APPENDICITIS N DIABETES, TYPE N BAD TEETH N ENT N HEARTBURN / REFLUX N AUTISM SPECTRUM DISORDER (ASD) N HEPATITIS / LIVER DISEASE N GOUT N SLEEP DISORDER N ALZHEIMER'S DISEASE N Brain Problems N DEMENTIA N HERPES N SEIZURES/EPILEPSY N HEADACHES/MIGRAINES N VASCULAR DISEASE N PACEMAKER N Blood Disorder N DIZZINESS N HEART DISEASE/HEART PROBLEMS N KIDNEY DISEASE N MULTIPLE SCLEROSIS N CANCER: SPECIFY N CARDIAC ARRHYTHMIA N ATRIAL FIBRILLATION N Gall Stones N [...] preservative 6 completed Chrissie Lira APRN [address], [place], [address], [employer] [facility] [employer] 10/26/2023 08:01:20 Tdap 8 handy Lira APRN [address], [place], [address], [employer] 10/26/2023 08:01:20 Tdap 0 handy Lira APRN [address], [place], [address], [employer] [facility] 10/26/2023 08:01:20 Hep B, unspecified formulation 1 handy Lira APRN [address], [place], [address], [employer] [facility] 10/26/2023 08:01:20 Hep B, unspecified formulation 0 handy Lira APRN [address], [place], [address], [employer] [facility] [employer] [facility] 10/26/2023 08:01:20 Hep B, unspecified formulation 8 handy Lira APRN [address], [place], [address], [employer] 10/26/2023 08:01:21 Influenza, split virus, trivalent, preservative 6 completed Chrissie Lira APRN [address], [place], [address], [employer] 10/26/2023 08:01:21 Hep B, adolescent or pediatric 2 completed Chrissie Lira APRN [address], [place], [address], [employer] 10/26/2023 08:01:21 Hep B, adult 6 completed Chrissie Lira APRN [address], [place], [address], [employer] 10/26/2023 08:01:21 Influenza, split virus, quadrivalent, PF 8 completed Chrissie Lira APRN [address], [place], [address], [employer] 10/26/2023 08:01:21 Influenza, split virus, quadrivalent, PF 2 completed Chrissie Lira APRN [address], [place], [address], [employer] 10/26/2023 08:01:21 influenza, unspecified formulation 2 completed Not Available [facility] 04/14/2023 08:22:51 Influenza, split virus, trivalent, PF 4 completed Chrissie Lira APRN [address], [place], [address], [employer] [facility] 02/01/2024 15:27:54 Past Encounters Encounter ID Performer Location Encounter Start Date Encounter Closed Date Diagnosis/Indication Diagnosis SNOMED-CT Code Diagnosis ICD10 Code Diagnosis Note [id number] Rodney simms MD [facility] [address] [place] [address] 05/14/2022 00:00:00 05/14/2022 13:04:09 [id number] Rodney simms MD [facility] [address] [facility] [address] [address] 06/03/2022 00:00:00 06/03/2022 10:28:02 [id number] Rodney simms MD [facility] [address] [address] 08/02/2022 10:17:28 08/02/2022 10:35:13 Intermittent palpitations 831480358 R00.[address] Deni Mccarthy at [facility] following Dr. Stark at [facility] testing was normal Electrocar diogram abnormal 233770941 R94.31 as above- all cardiac testing normal Vitamin D deficiency 347 71208 E55.9 on supplement Generalize d anxiety disorder 05936235 F41.1 On Lexapro-sh e is aware of side effects, risks, and benefitsCa ll office if any change in mood or behaviorGe t appt with psychiatry - referral previously given- encouraged her to reschedule her missed apptRecomm end counseling -name/numb ers previously given to patient as well as 24 hour crisis line number Essential hypertension 35412645 I10 stable off meds since last / period Vitamin B1 2 deficiency (non anemic) 58429955 E53.8 had local reaction to B12 shotswill switch to daily pillsrepea t labs in 2 months Fatigue [id number] R53.83 continue/s tart supplement s as aboveget appt with psychiatry and counselor as I do think some of this is stress/unm anaged anxiety [id number] Rodney simms MD [facility] [address] [facility] [address] [address] 11/01/2022 10:00:09 11/01/2022 10:28:40 Intermittent palpitations [id number] R00.[address] Deni Mccarthy at [facility] following Dr. Stark at [facility] testing was normal Electrocar diogram abnormal 702059133 R94.31 as above- all cardiac testing normal Vitamin D deficiency 347 83448 E55.9 on supplement Generalize d anxiety disorder 68943347 F41.1 On Lexapro-sh roberto carlos is aware of side effects, risks, and benefitsCa ll office if any change in mood or behaviorSinocente azevedo was previously referred to Psychiatry and then she missed her appointmen t and decided now that she does not want to go, feels like her current meds are workingRec ommend counseling -name/numb ers previously given to patient as well as 24 hour crisis line number Essential hypertension 63159355 I10 stable off meds since last / period Vitamin B1 2 deficiency (non anemic) 51002297 E53.8 had local reaction to B12 shotsnow on PO supplement Anti-nucle ar factor detected 874284718 R76.8 she reschedule d her rheumatolo gy appt with [facility]- now scheduled for early November Pre-surger y evaluation 813780215 Z01.818 Cardiology cleared her for surgery on 10/12/22 (see consult note in chart)chec k labsIf labs are okay, I will clear her from PCP homar azevedo and fax her form [id number] Rodney simms MD [facility] 15 [address] [facility], [address] [place] [address] 01/21/2023 10:08:05 01/21/2023 10:28:40 Intermittent palpitations 630093036 R00.[address] Deni Mccarthy at [facility] following Dr. Stark at [facility] testing was normal Electrocar diogram abnormal 899552935 R94.31 as above- all cardiac testing normal Vitamin D deficiency 347 15419 E55.9 on supplement Generalize d anxiety disorder 73507378 F41.1 On Lexapro-sh roberto carlos is aware [...] 24 hour crisis line number Essential hypertension 85098708 I10 stable off meds since last / period Vitamin B1 2 deficiency (non anemic) 94111022 E53.8 had local reaction to B12 shotsnow on PO supplement Anti-nucle ar factor detected 612925584 R76.8 she reschedule d her rheumatolo gy appt with [facility]- now for May 2023 Adult heal th examination 180275624 Z00.01 Depression screening 171 058905 Z13.31 Body mass index 25-29 - overweight 038878731 Z68.28 [id number] Radha Hunter NP [facility] [address] [address] 02/02/2023 11:21:55 02/02/2023 13:06:20 [id number] Abiodun Estes MD [facility] [place] [address] [place] [address] 03/08/2023 10:50:41 03/08/2023 11:49:29 Pain of right knee joint 8604693262 44999 M25.070 [id number] Abiodun Estes MD [facility] [place] [address] [place] [address] 03/29/2023 09:12:34 03/29/2023 09:46:03 Pain of right knee joint 6178045886 70815 M25.561 Strain of hamstring tendon 520260781 S76.311A Iliotibial band friction syndrome 372369389 M76.31 [id number] Abiodun Estes MD [facility] [address] [place] [address] 05/16/2023 10:29:12 05/16/2023 10:52:50 Pain of right knee joint 0530885304 90243 M25.323 [id number] Rodney simms MD [facility] Internal Med [place] [address] [facility] y [facility] [place] [address] 10/26/2023 09:40:07 10/26/2023 10:13:38 Essential hypertension 65766483 I10 Cobalamin deficiency 190 503155 E53.8 Vitamin D deficiency 347 14438 E55.9 Abdominal pain 16950203 R10.9 [id number] Rodney simms MD [facility] [address] [facility], [facility] [place] [address] 02/01/2024 11:11:16 02/01/2024 12:16:54 Acute urinary tract infection 331327895 N39.0 Difficulty swallowing 28 2403121 R13.10 Hepatitis C screening 41 7262479 Z11.59 Administra tion of influenza vaccine 33780599 Z23 [id number] Rodney simms MD [facility] [address] [place] [address], [place] [address] 02/13/2024 10:47:30 02/13/2024 11:26:13 Abdominal pain 62391613 R10.9 Also having pelvic pain, bloating, inability to eat or drink. Pain in pelvis 46462142 R10.2 CT of abdomen/pe lvis. [id number] June Romano MD [facility] General Surgery [address] [facility], [place] [address] 04/09/2024 14:08:24 04/09/2024 14:29:39 Esophageal dysphagia 67893536 R13.19 [id number] Rodney simms MD [facility] Internal Med [facility] [address] [place] [address] 1 05/10/2024 10:13:21 05/10/2024 10:54:03 Generalized anxiety disorder 50339071 F41.1 Acute urin neris tract infection 037382274 N39.0 Sleep apnea 29864291 G47 .30 [id number] Luke Beebe MD [facility] Pulmonolo [facility] [place] [facility] [address] [place] [address] 0 05/17/2024 13:55:50 05/28/2024 13:42:44 Obstructive sleep apnea syndrome 74786484 G47.33 [id number] Rodney simms MD [facility] [address] [place] [address], [place] [address] 06/18/2024 10:42:06 06/18/2024 11:23:45 Generalized anxiety disorder 38086384 F41.1 Health Concerns Section Related Observation LastModified by Organization Detai ls LastModified Time None Recorded Concern Status LastModified by Organization Details LastModified Time None Recorded Advance Directives Directive None Recorded Payers Insurance Date Sequence Insurance Name Policy Number Policy Ferrell Covered Member ID Ferrell Member ID Guarantor Name 08/10/2024 1 [facility] - DOS ON OR AFTER 20 (MEDICAID REPLACEMENT - HMO) Tran Rice [id number] Tran Kowalski Krystal Notes Date Note Type Note Provider Name [...] positive for leukocytes, bilirubin, pH is 6. 6/gee presents today to establish care and for [...] She declines flu shot today. Chrissie Lira, INDUSTRIAL SAFETY ENGINEER [address] [facility], [address], [place], [address], [facility] 02/13/2024 11:21:42 04/09/2024 text/html PT WAS SEEN IN T HE OFFICE TODAY FOR DYSPHAGIA EVALUATION . PT SX ARE TO SOLIDS /LIQUIDS X 2 YRS . PT ADMITS PYROSIS . PT HAS 3 KIDS . ALL HAVE EoE . THEY ARE ON DUPIXENT . June Romano MD [address] [facility], [facility] [address], [place], [address], [facility] [employer] [facility] 04/09/2024 14:30:16 05/10/2024 text/html Tran present s [...] positive for leukocytes, bilirubin, pH is 6. 6/gee presents today to establish care and for [...] Cardiology.\ She declines flu shot today. Chrissie Soraya, INDUSTRIAL SAFETY ENGINEER [address] [facility], [facility] [address], [place], [address], [place] [facility] [employer] 05/10/2024 10:51:52 05/17/2024 text/html Primary care/Referring provider: Chrissie Lira APRN During the [facility] home sleep study on 05/15/24, AHI = [...] moderate chance of dozing. Luke Beebe MD [address], [address], [place], [address], [place] [facility] [employer] [facility] 05/17/2024 14:41:58 06/18/2024 text/html Tran present s [...] She declines flu shot today. Chrissie Lira, INDUSTRIAL SAFETY ENGINEER [address] [facility], [facility] [address], [place], [address], [place] [facility] [employer] 06/18/2024 11:03:19 OBGyn Episode No OBEpisode recorded.
--- OUTSIDE RECORDS SUMMARY | 2024-11-08 09:16 | XMS_ITS | Continuity of Care Document ---
Author Organization [facility] Address [address] [facility] [address] [place] [address] Phone Care Team Providers Care Business Development Coordinator Name Role Phone Emigdio Olivo MD Unavailable [...] Diagnoses Date Provider Providers Copied on Encounter [facility], [address] [place] [address] [address], [place], [place], [id number], [place] tel:[phone] SEC Jg NM Professional CORNEAL DSDR CONTCT LENSCORNEAL PANNUS 2 Geovani Beal. [address] [facility] [place], [place], [address], [place]. tel:[phone] [facility], [address], [place], [place], [address], [place] tel:[phone] [facility] No Information [address] Ramya Wyatt. [address] [facility] [address], [place], [address], [place]. tel:[phone] Family History Family Member Type Diagnosis Age At Onset Paternal grandmother Problem (finding) Diabetes mellit us Problem (finding) Maternal grandmother Problem (finding) glaucoma Payers Payer name Insurance type Covered green party ID Authorpiloa tidevorah(s) Medicaid [facility] [id number] Social History Type Description Quantity Date Captured [...]
--- OUTSIDE RECORDS SUMMARY | 2024-11-08 09:17 | XMS_ITS | Clinical Summary ---
Author Organization [facility] Address [facility] [place] [address] Care Team Providers Care Bearing Press Machine Operator Name Role Phone Pema Patel PA-C Primary Care Provider [phone] Sarah Jarrell MD Unavailable [phone] Source Comments [facility],non-owned Affiliates and Associated Physician Practices is amultiple site organization consisting of ambulatory clinics and hospital sitesin [place], [place], [place]. This disclosure is being madepursuant to the Care Everywhere program and may not contain all information available regarding this patient. Last updated 18.[facility] Allergies No known active allergies Medications * Be aware that medications may not be up to date on this document. Alwaysverify current medications with the patient. escitalopram (Lexapro) 20 MG tablet Take 1 (one) tablet by mouth once daily as directed. 02/17/2023 Active cetirizine (ZyrTEC) 10 MG tablet Take 1 (one) tablet by mouth once daily 30 tablet 07/29/2023 Active fluticasone propionate (Flonase) 50 MCG/ACT nasal spray [place] 2 (two) sprays into each nostril once [...] 18 Supervision of high-risk of young shikha massiel 10/05/2017 Overview (10/05/2017): Dating: LMP of 06/18/17 [...] Recorded Patient Health Questionnaire-2 Score 0 04/14/2024 Comments No Sex and Gender Information Value Date Recorded Sex Assigned at Not on file Legal Sex Female 5:48 AM LEAN FACILITATOR Gender Identity Not on file Sexual Orientation Not on file Last Filed Vital Signs Vital Sign Reading Time Taken Comments Blood Pressure 106/68 06/23/2023 1:49 PM LEAN FACILITATOR Pulse 78 06/23/2023 1:49 PM LEAN FACILITATOR Temperature 36.7 C (98 F) 06/23/2023 1:49 PM LEAN FACILITATOR Respiratory Rate 17 03/06/2018 10:19 AM LEAN FACILITATOR Oxygen Saturation 99% 05/03/2023 12:53 PM LEAN FACILITATOR Inhaled Oxygen Concentration - - Weight 82.6 kg (182 lb) 06/23/2023 1:49 PM LEAN FACILITATOR Height 170.2 cm (5' 7) 06/23/2023 1:49 PM LEAN FACILITATOR Body Mass Index 28.51 06/23/2023 1:49 PM LEAN FACILITATOR Plan of Treatment Health Maintenance Due Date Last Done Comments HIV SCREENING 11/27/2002 HEPATITIS C SCREENING 11/23/2005 DTAP/TDAP/TD VACCINES (1 - Tdap) 11/27/2006 HEPATITIS B VACCINE (1 of 3 - 19+ 3-dose series) 11/27/2006 PAP SMEAR 11/27/2008 HPV VACCINE (1 - 3-dose SCDM series) 11/27/2014 COVID-19 VACCINE (1 - season) 2024 DEPRESSION SCREENING 05/02/2024 07/29/2023 INFLUENZA VACCINE (#1) 2024 , 03/11/2022, 02/01/2022, Additional history exists ZOSTER VACCINE (1 of 2) 11/27/2037 HIB VACCINE Aged Out No longer eligi [...] patient's age to complete this topic Insurance [facility] MEDICAID - OUT OF STATE [facility] Care Teams Bearing Press Machine Operator Relationship Specialty Start Date End Date Pema Patel PA-C [address] [address] PCP - General Physician Machine Spreader 08/26/21 Sarah [place] MD [address] [place] [address] Physician Obstetrics and Gynecology 08/26/21
--- NOTE | 2024-11-13 11:39 | P.SLEEP_ITS ---
Sleep Study - Home Unattended Date of Study: 11/08/24 Ordering Provider: Marta Parker NP Interpreting Provider: Sallie Robison, DO Home Sleep Study Type: Watch PAT Height: 1.68 m Weight: 74.843 kg Body Mass Index: 26.6 Neck Circumference (inches): 13 [place]: 12 Reason for Sleep Study Daytime hypersomnia Sleep History The patient is a 38-year-old female who had a sleep study ordered by her primary care provider for evaluation of sleep apnea. The patient frequently awakens from sleep short of breath. She occasionally awakens at night with heartburn, belching, or cough. She frequently snores, and it is often loud enough that others complain. She rarely has trouble sleeping when she has a cold. She frequently wakes up gasping for air throughout the night. She frequently has breathing problems at night observed by herself or others. She frequently sweats excessively at night. She occasionally has heart palpitations or irregular heartbeats during the night. She frequently falls asleep during the day, but never while driving. She denies sleep paralysis and cataplexy. She denies having trouble at school or work due to sleepiness. She occasionally experiences vivid dreamlike scenes upon awakening or falling asleep. She denies feeling afraid of going to sleep. She denies having nightmares. She rarely remembers her dreams. She rarely has thoughts racing through her mind. She denies feeling sad or d epressed. She occasionally has anxiety. She denies having muscular tension. She occasionally notices parts of her body jerk. She frequently kicks during the night. She denies having crawling and aching feelings in her legs and denies having leg pain during the night. She denies grinding her teeth during sleep and denies awakening with morning jaw pain. She is rarely bothered by pain during the day and never awakened by pain during the night. She occasionally wakes up feeling stiff in the morning. She occasionally wakes up with sore or achy muscles. She rarely wakes up with pain in the neck, spine, or other joints. She goes to bed between 9 to 10 p.m. every night. It takes her 10 to 60 minutes to fall asleep. She wakes up 3 or 4 times throughout the night to urinate and it can take 30 minutes to fall back asleep. She wakes up at 6 a.m. every morning. She typically gets 5 to 9 hours of sleep per night. She will stay in bed for 15 minutes after waking up in the morning. She currently lives with her significant other and 3 children. She denies consuming any caffeinated beverages within 2 hours of bedtime. She denies engaging in physical exercise before bedtime. She will read and watch television before falling asleep. She will take naps in the afternoon or the evening but they are not refreshing. She consumes 200 milligrams of caffeinated beverages throughout the day. She quit smoking cigarettes 12 years ago. She denies alcohol and recreational drugs. [facility] Past Medical History Medical History Right calf pain Anxiety Anemia DUGAN (dyspnea on exertion) Essential hypertension Surgical History Surgical History Hx of arthroscopy of right knee 11/09/2022 History of tonsillectomy Family History Family History Mother Family history of migraine headaches Hypertension Father Family history of hepatitis Grandparent Breast cancer Heart disease Cerebrovascular accident Lung cancer Other Diabetes mellitus Family history of cardiovascular disease Family history of cataracts Family history of obesity Social History Social History Smoking packs per day: 0.5 Smoking cigarettes per day: 10.0 Years smoked: 2 Smoking pack-years: 1.00 Smoking status: Former smoker Tobacco type: cigarettes Alcohol intake: current Alcohol use details: 2 PER MONTH Substance use: never Last use: 2011 Do You Feel Safe in your Home?: Yes Lack of Transportation: No Lack of Food: Never True Current Housing: I Have Housing Concerned About Future Housing: No Difficulty Paying Gas/Electric Bills: No Difficulty Paying for Meds: No Currently Unemployed: No Education: Associate Degree Difficulty w/ Childcare or Family Care: No Living arrangements: with family Gender identity (if verbalized by the patient): Female Sexual Orientation (if Verbalized by the Patient): Straight or Heterosexual Spiritual care concerns: No Medications Home Medications ?Medication ?Instructions ?Recorded ?Confirmed ?Type fluoxetine 10 mg tablet 10 mg PO DAILY #90 tabs 08/01/24 10/26/24 Rx fluoxetine 20 mg capsule 20 mg PO DAILY #90 caps 08/02/24 10/26/24 Rx Sleep Procedure The sleep study was completed using HelpHiveT a technically adequate device with seven channels: peripheral arterial tone, actigraphy, body position, snore, respiratory movement, pulse oximetry, sleep staging, and heart rate. Prior to using the device, the patient received verbal and written instructions for its application and was provided with the help desk phone number for additional telephonic instruction with 24-hour availability of qualified personnel to answer questions. The study was scored using CMS guidelines. Sleep Architecture The total recording time is 6 hrs, 55 min. The total sleep time is 5 hrs, 59 min. Sleep latency is 18 minutes. REM latency is 61 minutes. The patient had 9 episodes of waking. Sleep architecture shows 10.6% deep sleep, 77.4% light sleep, and (as % Total Sleep Time) showed NREM (Light 77.4%; Deep 10.6%), and a 12.1% stage REM. The patient spent 74.9% of total sleep time in the supine position. Sleep efficiency was 86.51. Respiratory Analysis The overall AHI (pAHI 4%:) is 0.5. The overall AHI (pAHI 3%:) is 2.0. The cent ral AHI is 1.1. The AHI was 1.5 in NREM and 5.6 in REM sleep. The AHI was 1.8 in Supine and 2.7 in Non-supine sleep. Percent of Bryant [place]ur respirations is 0.0. Oximetry Data The oxygen desaturation index (KAYCEE 4%:) is 0.5. The mean saturation is 96%, and the lowest saturation is 91%. Time spent with saturation < 88% is 0.0 minutes. Snoring Profile Snoring average intensity is 40 dB. The patient snored above 45 decibels for 8.4 minutes, 2.3% of sleep time. Cardiac Profile The average pulse rate is 61 beats per minutes. The lowest pulse rate is 49 bpm. The highest pulse rate reported is 97 bpm. Atrial fibrillation was not detected. Premature beats occur <0.1 per minute. Assessment and Plan Assessment and Plan (1) Excessive daytime sleepiness: Code(s): G47.19 - Other hypersomnia Status: Acute Assessment and Plan: The patient had an overall AHI of 0.5 with desaturation down to 91%. This is not consistent with sleep disordered breathing. Due to the severity of the patient's daytime hypersomnia, further evaluation is warranted. I recommend that the patient have a polysomnogram followed by an MSLT. The patient should not nap on the day of the study and should not be given a sleep aid as it can affect the results of the study. Data The data obtained during this sleep study is adequate for interpretation. Certification This sleep study has been reviewed by a board certified sleep medicine physician.
[2024-11-13 11:40] VITALS: BMI 26.6
== END 2024-11-09 12:23 | disposition home or self-care (01) ==
LOC: ANHCSM 09:06
PROVIDERS: PCP Internal Medicine; Visit Provider Nurse Practitioner
DX: G47.19 Other hypersomnia (principal); R06.83 Snoring
CPT/HCPCS: 95800

== ENCOUNTER 2024-11-30 00:51 | Day surgery (SDC) | payer OTHER, SELFPAY ==
[2024-11-15 12:17] VITALS: BMI 26.6
--- OUTSIDE RECORDS SUMMARY | 2024-11-30 00:53 | XMS_ITS | Clinical Summary ---
Author Organization [facility] [place] Address [facility] [place] [address] Care Team Providers Care Fur Storage Clerk Name Role Phone Pema Patel PA-C Primary Care Provider [phone] Sarah Jar[place] MD Unavailable [phone] Source Comments [facility],non-owned Affiliates and Associated Physician Practices is amultiple site organization consisting of ambulatory clinics and hospital sitesin [place], [place], [place] and [place]. This disclosure is being madepursuant to the Care Everywhere program and may not contain all information available regarding this patient. Last updated 18.[facility] Allergies No known active allergies Medications * [...] fluticasone propionate (Flonase) 50 MCG/ACT nasal spray [place] 2 (two) sprays into each nostril once [...] on file Legal Sex Female 5:48 AM GRINDER CHIPPER Gender Identity Not on file Sexual Orientation Not on file Last Filed Vital Signs Vital Sign Reading Time Taken Comments Blood Pressure 106/68 06/23/2023 1:49 PM GRINDER CHIPPER Pulse 78 06/23/2023 1:49 PM GRINDER CHIPPER Temperature 36.7 C (98 F) 06/23/2023 1:49 PM GRINDER CHIPPER Respiratory Rate 17 03/06/2018 10:19 AM GRINDER CHIPPER Oxygen Saturation 99% 05/03/2023 12:53 PM GRINDER CHIPPER Inhaled Oxygen Concentration - - Weight 82.6 kg (182 lb) 06/23/2023 1:49 PM GRINDER CHIPPER Height 170.2 cm (5' 7) 06/23/2023 1:49 PM GRINDER CHIPPER Body Mass Index 28.51 06/23/2023 1:49 PM GRINDER CHIPPER Plan of Treatment Health Maintenance Due Date [...] patient's age to complete this topic Insurance [facility] MEDICAID - OUT OF STATE [facility] Care Teams Fur Storage Clerk Relationship Specialty Start Date End Date Pema Patel PA-C [address] [address] PCP - General Physician Training Officer 08/26/21 Sarah Jar[place] MD [address] [place] [address] Physician Obstetrics and Gynecology 08/26/21
--- OUTSIDE RECORDS SUMMARY | 2024-11-30 00:53 | XMS_ITS | Referral Summary ---
Author Organization [facility] Address [address] [place] [address] Care Team Providers Care Plastic Jig And Fixture Builder Name Role Phone Pema Patel Primary Care Provider [phone]- [phone] Allergies No known active allergies Medications escitalopram [...] 06/05/2023 Assessment & Plan (06/05/2023 10:32 PM CUSTOMER SUPPORT ASSISTANT): Patient's symptoms seem most consistent with vertigo. [...] 06/05/2023 Assessment & Plan (06/05/2023 10:31 PM CUSTOMER SUPPORT ASSISTANT): Check labs Moderate episode of recurrent major depressive d isorder 06/05/2023 Assessment & Plan (06/05/2023 10:25 PM CUSTOMER SUPPORT ASSISTANT): Continue Lexapro 20 Spotting during 04/11/2023 Vaginal discharge 04/11/2023 Arthralgia of right knee 03/07/2023 Rash 11/15/2022 Vitamin B12 deficiency (non anemic) 08/02/2022 Assessment & Plan (06/05/2023 10:13 PM CUSTOMER SUPPORT ASSISTANT): Supplement Electrocardiogram abnormal 07/25/2022 Essential hypertension 07/25/2022 Assessment & Plan (06/05/2023 10:13 PM CUSTOMER SUPPORT ASSISTANT): Bp is stable/in acceptable range for any co-morbidities. Encouraged to limit sodium intake and exercise for weight control. Has been managed without medication. Continue to monitor closely Generalized anxiety disorder 07/25/2022 Intermittent palpitations 07/25/2022 Vitamin D deficiency 07/25/2022 Assessment & Plan (06/05/2023 10:13 PM CUSTOMER SUPPORT ASSISTANT): Supplement Acute upper respiratory infection 06/24/2022 Positive antinuclear antibody 06/06/2022 Cobalamin deficiency 06/06/2022 Leukopenia 05/26/2022 Flu vaccine need 03/14/2022 Assessment & Plan (03/14/2022 3:19 PM CUSTOMER SUPPORT ASSISTANT): Updated in the office today Easy bruising [...] 10/25/2021 Assessment & Plan (03/14/2022 3:17 PM CUSTOMER SUPPORT ASSISTANT): Continue with Lexapro as symptoms are stable. [...] 08/15/2021 Assessment & Plan (03/14/2022 3:17 PM CUSTOMER SUPPORT ASSISTANT): Patient still has had presyncopal type symptoms. Was referred to medical technologist at her last visit but was not able to keep that appointment up in [facility] due to stressors at home. Will make referral to the [facility] Medical group Cardiology for further evaluation. Assessment [...] She would like to follow-up with a medical technologist that her mother is seen up in [facility]. Provided a referral. Patient is [...] 08/14/2021 Assessment & Plan (06/05/2023 10:11 PM CUSTOMER SUPPORT ASSISTANT): Weight/BMI is in healthy range. Continue healthy lifestyle to maintain. Assessment & Plan (03/14/2022 3:16 PM CUSTOMER SUPPORT ASSISTANT): Weight/BMI is in healthy range. Continue healthy [...] 08/23/2020 Assessment & Plan (06/05/2023 10:11 PM CUSTOMER SUPPORT ASSISTANT): Probably multifactorial. Check labs and followup to [...] unspecified Assessment & Plan (06/05/2023 10:11 PM CUSTOMER SUPPORT ASSISTANT): Stressed importance of eating small meals multiple [...] onset of sxs. Check COVID/FLU test thru [facility] collection site in [place]. 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 Not on file Not on file Not on file Last Filed Vital Signs Vital Sign Reading Time Taken Comments Blood Pressure 122/78 05/25/2023 9:24 AM CUSTOMER SUPPORT ASSISTANT Pulse 68 05/25/2023 9:24 AM CUSTOMER SUPPORT ASSISTANT Temperature 36.9 C (98.5 F) 05/25/2023 9:24 AM CUSTOMER SUPPORT ASSISTANT Respiratory Rate 18 12/07/2021 4:41 PM CDT Oxygen Saturation 99% 05/25/2023 9:24 AM CUSTOMER SUPPORT ASSISTANT Inhaled Oxygen Concentration - - Weight 82.1 kg (181 lb) 05/25/2023 9:24 AM CUSTOMER SUPPORT ASSISTANT Height 167.6 cm (5' 6) 05/25/2023 9:24 AM CUSTOMER SUPPORT ASSISTANT Body Mass Index 29.21 05/25/2023 9:24 AM CUSTOMER SUPPORT ASSISTANT Plan of Treatment Not on file Procedures [...] RNA. Detection and Quantitation by Real-Time Reverse Fiberglass Auto Body Repairer-PCR.Current Interpretive data was last revised on 2016. Blood specimen (specimen) 08/17/2017 10:28 AM CDT 08/17/2017 11:38 AM CDT Narrative CORINNE MCDOWELL - 08/17/2017 2:17 PM CDT Cici Levine NP LAB MICROBIOLOGY - GENERAL ORDERABLES Edited Result - Final [facility] Department [place] [address] from Last 3 Months or Most Recently Relevant to Health Maintenance Insurance [facility] Care Teams Plastic Jig And Fixture Builder Relationship Specialty Start Date End Date Pema Patel PA [address] [facility] [address] [place] [address] PCP - General Internal Medicine 05/25/23
--- OUTSIDE RECORDS SUMMARY | 2024-11-30 00:53 | XMS_ITS | Clinical Summary ---
Author Organization [facility] Address [address] [place] [address] Phone Care Team Providers Care Marine Pipefitter Name Role Phone Dulce Boss MD Primary Care Provider [phone] Allergies No known active allergies Medications azithromycin [...] Comments Blood Pressure 106/62 03/22/2017 6:00 PM ORNAMENTAL METAL WORKER Pulse 65 03/22/2017 6:15 PM ORNAMENTAL METAL WORKER Temperature 37.2 C (98.9 F) 03/22/2017 6:27 PM ORNAMENTAL METAL WORKER Respiratory Rate 18 03/22/2017 4:59 PM ORNAMENTAL METAL WORKER Oxygen Saturation 100% 03/22/2017 6:15 PM ORNAMENTAL METAL WORKER Inhaled Oxygen Concentration - - Weight 72.6 kg (160 lb) 03/22/2017 4:59 PM ORNAMENTAL METAL WORKER Height 170.2 cm (5' 7) 03/22/2017 4:59 PM ORNAMENTAL METAL WORKER Body Mass Index 25.06 03/22/2017 4:59 PM ORNAMENTAL METAL WORKER Plan of Treatment Health Maintenance Due Date [...] age to complete this topic Insurance MEDICAID [facility] Care Teams Marine Pipefitter Relationship Specialty Start Date End Date Dulce Boss MD [address] [place] [address] PCP - General 04/02/15
--- OUTSIDE RECORDS SUMMARY | 2024-11-30 00:53 | XMS_ITS | Clinical Summary ---
Author Organization [facility] Address [address] [place] [address] Care Team Providers Care Calender Inspector Name Role Phone Pema Patel Primary Care Provider [phone] Allergies No known active allergies Medications escitalopram [...] 06/05/2023 Assessment & Plan (06/05/2023 10:32 PM CALCIMINER): Patient's symptoms seem most consistent with vertigo. [...] 06/05/2023 Assessment & Plan (06/05/2023 10:31 PM CALCIMINER): Check labs Moderate episode of recurrent major depressive d isorder 06/05/2023 Assessment & Plan (06/05/2023 10:25 PM CALCIMINER): Continue Lexapro 20 Spotting during 04/11/2023 Vaginal discharge 04/11/2023 Arthralgia of right knee 03/07/2023 Rash 11/15/2022 Vitamin B12 deficiency (non anemic) 08/02/2022 Assessment & Plan (06/05/2023 10:13 PM CALCIMINER): Supplement Electrocardiogram abnormal 07/25/2022 Essential hypertension 07/25/2022 Assessment & Plan (06/05/2023 10:13 PM CALCIMINER): Bp is stable/in acceptable range for any co-morbidities. Encouraged to limit sodium intake and exercise for weight control. Has been managed without medication. Continue to monitor closely Generalized anxiety disorder 07/25/2022 Intermittent palpitations 07/25/2022 Vitamin D deficiency 07/25/2022 Assessment & Plan (06/05/2023 10:13 PM CALCIMINER): Supplement Acute upper respiratory infection 06/24/2022 Positive antinuclear antibody 06/06/2022 Cobalamin deficiency 06/06/2022 Leukopenia 05/26/2022 Flu vaccine need 03/14/2022 Assessment & Plan (03/14/2022 3:19 PM CALCIMINER): Updated in the office today Easy bruising [...] 10/25/2021 Assessment & Plan (03/14/2022 3:17 PM CALCIMINER): Continue with Lexapro as symptoms are stable. [...] 08/15/2021 Assessment & Plan (03/14/2022 3:17 PM CALCIMINER): Patient still has had presyncopal type symptoms. Was referred to health support specialist at her last visit but was not able to keep that appointment up in [facility] due to stressors at home. Will make referral to the [facility] Medical group Cardiology for further evaluation. [...] She would like to follow-up with a health support specialist that her mother is seen up in [facility]. Provided a referral. Patient is going to [...] 08/14/2021 Assessment & Plan (06/05/2023 10:11 PM CALCIMINER): Weight/BMI is in healthy range. Continue healthy lifestyle to maintain. Assessment & Plan (03/14/2022 3:16 PM CALCIMINER): Weight/BMI is in healthy range. Continue healthy [...] 08/23/2020 Assessment & Plan (06/05/2023 10:11 PM CALCIMINER): Probably multifactorial. Check labs and followup to [...] unspecified Assessment & Plan (06/05/2023 10:11 PM CALCIMINER): Stressed importance of eating small meals multiple [...] onset of sxs. Check COVID/FLU test thru [facility] collection site in [place]. 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 Not on file Not on file Not on file Obstetrics History Last Filed Vital Signs Vital Sign Reading Time Taken Comments Blood Pressure 122/78 05/25/2023 9:24 AM CALCIMINER Pulse 68 05/25/2023 9:24 AM CALCIMINER Temperature 36.9 C (98.5 F) 05/25/2023 9:24 AM CALCIMINER Respiratory Rate 18 12/07/2021 4:41 PM CDT Oxygen Saturation 99% 05/25/2023 9:24 AM CALCIMINER Inhaled Oxygen Concentration - - Weight 82.1 kg (181 lb) 05/25/2023 9:24 AM CALCIMINER Height 167.6 cm (5' 6) 05/25/2023 9:24 AM CALCIMINER Body Mass Index 29.21 05/25/2023 9:24 AM CALCIMINER Plan of Treatment Health Maintenance Due Date Last Done Comments Cervical Cancer Screening 1987 Varicella Vaccines (1 of 2 - 13+ 2-dose series) 11/27/2000 HPV Vaccines (1 - 3-dose SCDM series) 11/27/2014 Regular Well Visit/Exam 18-64 08/14/2022 08/14/2021, 08/20/2020 Depression Screening 05/25/2024 05/25/2023, 05/25/2023, 12/28/2021, Additional history exists Influenza Vaccine (#1) 2024 , 02/01/2022, 01/20/2018, Additional history exists DTaP/Tdap/Td Vaccine (3 - Td or Tdap) 01/21/2028 01/20/2018, 02/12/2010 Hepatitis B Screening Completed 07/04/2015 , 02/16/2010, 02/15/2002, Additional history exists Hepatitis C Screening Completed 08/17/2017 Pneumococcal vaccine <65 Aged Out No longer [...] RNA. Detection and Quantitation by Real-Time Reverse Hot Knife Foxing Cutter-PCR.Current Interpretive data was last revised on 2016. Blood specimen (specimen) 08/17/2017 10:28 AM CDT 08/17/2017 11:38 AM CDT Narrative CORINNE SARGENT - 08/17/2017 2:17 PM CDT us Cici Levine NP LAB MICROBIOLOGY - GENERAL ORDERABLES Edited Result - Final [facility] Department [place] [address] from Last 3 Months or Most Recently Relevant to Health Maintenance Insurance [id number] Care Teams Calender Inspector Relationship Specialty Start Date End Date Swinigan, Pema R., PA [address] [place] [address] PCP - General Internal Medicine 05/25/23
--- OUTSIDE RECORDS SUMMARY | 2024-11-30 00:53 | XMS_ITS | Continuity of Care Document ---
Author Organization [facility] Address [address] [place] [address] Phone Care Team Providers Care Certified Credit Counselor Name Role Phone Emigdio Olivo MD Unavailable [...] Diagnoses Date Provider Providers Copied on Encounter [facility], [address] [place] [address] [address], [place], [place], [id number], [place] tel:[phone] SEC [place]g [place] Professional CORNEAL DSDR CONTCT LENSCORNEAL PANNUS 2 Geovani Beal. [address] [facility] [place] [place] [place], [id number], [place]. tel:[phone] [facility], [address], [place], [place], [id number], [place] tel:[phone] [facility] No Information [address] Ramya Wyatt. [address] [facility] [address], [place], [address], [place]. tel:[phone] Family History Family Member Type Diagnosis Age At Onset Paternal grandmother Problem (finding) Diabetes mellit us Problem (finding) Maternal grandmother Problem (finding) glaucoma Payers Payer name Insurance type Covered constitution party ID Authorpiloa tidevorah(s) Medicaid [facility] [id number] Social History Type Description Quantity Date Captured [...]
[2024-11-30 12:37] VITALS: BP 106/75; PULSE 72; RESP 18; TEMP 36.9; O2SAT 99
[2024-11-30 12:40] LABS: BEDSIDEPREGUCG Negative (Negative)
[2024-11-30] MEDS: LACTATED RINGERS 1,000 ML 150 ML IV CONT (12:47)
--- NOTE | 2024-11-30 12:58 | P.PNAN_ITS ---
Anes - Initial Pre Proc Eval Procedure: Operation Date: 11/30/24 14:00 Proposed Procedures p Colonoscopy - Viraj Roth MD Date/Time: 11/30/24 12:58 Surgeon: Viraj Roth MD Pre Op Diagnosis: Melena Patient Data Age: 39 Gender: F Height: 1.68 m Weight: 72.2 kg Last Vital Signs Temp 36.9 C 11/30/24 12:37 Pulse 72 11/30/24 12:37 Resp 18 11/30/24 12:37 BP 106/75 11/30/24 12:37 Pulse Ox 99 11/30/24 12:37 O2 Del Method Room Air 11/30/24 12:37 Allergies Allergy/AdvReac Type Severity Reaction Status Date / Time hydrocodone Allergy Unknown Itching Verified 11/30/24 12:34 Home Medications ?Medication ?Instructions ?Recorded ?Confirmed ?Type fluoxetine 10 mg tablet 10 mg PO DAILY #90 tabs 08/01/24 11/30/24 Rx fluoxetine 20 mg capsule 20 mg PO DAILY #90 caps 08/02/24 11/30/24 Rx Laboratory Tests 11/30/24 12:37 POC Urine HCG, Qual Negative (Negative) Patient hx anesthesia problems: none Family hx anesthesia problems: none Results Review: All pre-operative results and documents have been reviewed as part of the pre-op erative evaluation. [facility] Past Medical History Medical History Right calf pain Anxiety Anemia DUGAN (dyspnea on exertion) Essential hypertension Surgical History Surgical History Hx of arthroscopy of right knee 11/09/2022 History of tonsillectomy Family History Family History Mother Family history of migraine headaches Hypertension Father Family history of hepatitis Grandparent Breast cancer Heart disease Cerebrovascular accident Lung cancer Other Diabetes mellitus Family history of cardiovascular disease Family history of cataracts Family history of obesity Social History Social History Smoking packs per day: 0.5 Smoking cigarettes per day: 10.0 Years smoked: 2 Smoking pack-years: 1.00 Smoking status: Former smoker Tobacco type: cigarettes Alcohol intake: never Substance use: never Substance use type: does not use Last use: 2012 Do You Feel Safe in your Home?: Yes Lack of Transportation: No Lack of Food: Never True Current Housing: I Have Housing Concerned About Future Housing: No Difficulty Paying Gas/Electric Bills: No Difficulty Paying for Meds: No Currently Unemployed: No Education: Associate Degree Difficulty w/ Childcare or Family Care: No Living arrangements: with family Gender identity (if verbalized by the patient): Female Sexual Orientation (if Verbalized by the Patient): Straight or Heterosexual Spiritual care concerns: No Anes - Eval Final PreProcedure Day of Procedure 11/30/24 12:58 Patient weight: overweight Heart: regular rate and rhythm Lungs: clear to auscultation Airway: Mallampati scale class II Neurological: alert and oriented Last oral intake: >/= 8 hours ASA classification: II Emergent: no Anesthetic plan: proceed Anesthesia type and monitoring: general GIVS and standard monitoring Results Review: All pre-operative results and documents have been reviewed as part of the pre- operative evaluation. Informed Consent: The patient's anesthetic plan and its attendant risks and benefits were discussed with the patient/family/POA. Questions were solicited and answers provided to the satisfaction of the patient/family/POA.
--- NOTE | 2024-11-30 13:41 | PM.HPGS ---
History of Present Illness History of Present Illness Consent: Risks, benefits, and alternatives have been discussed and questions answered. Patient agrees to proceed with procedure. Chief complaint: Melena Narrative: Tran Rice is a 39 year old female here for first colonoscopy, had blood in stool Review of Systems Review of Systems: All systems reviewed & are unremarkable except as noted in HPI and below PMFSH Past Medical History Medical History Right calf pain Anxiety Anemia DUGAN (dyspnea on exertion) Essential hypertension Surgical History Surgical History Hx of arthroscopy of right knee 11/09/2022 History of tonsillectomy Family History Family History Mother Family history of migraine headaches Hypertension Father Family history of hepatitis Grandparent Breast cancer Heart disease Cerebrovascular accident Lung cancer Other Diabetes mellitus Family history of cardiovascular disease Family history of cataracts Family history of obesity Social History Social History Smoking packs per day: 0.5 Smoking cigarettes per day: 10.0 Years smoked: 2 Smoking pack-years: 1.00 Smoking status: Former smoker Tobacco type: cigarettes Alcohol intake: never Substance use: never Substance use type: does not use Last use: 2012 Do You Feel Safe in your Home?: Yes Lack of Transportation: No Lack of Food: Never True Current Housing: I Have Housing Concerned About Future Housing: No Difficulty Paying Gas/Electric Bills: No Difficulty Paying for Meds: No Currently Unemployed: No Education: Associate Degree Difficulty w/ Childcare or Family Care: No Living arrangements: with family Gender identity (if verbalized by the patient): Female Sexual Orientation (if Verbalized by the Patient): Straight or Heterosexual Spiritual care concerns: No Meds Home Medications and Allergies Home Medications ?Medication ?Instructions ?Recorded ?Confirmed ?Type fluoxetine 10 mg tablet 10 mg PO DAILY #90 tabs 08/01/24 11/30/24 Rx fluoxetine 20 mg capsule 20 mg PO DAILY #90 caps 08/02/24 11/30/24 Rx Allergies Allergy/AdvReac Type Severity Reaction Status Date / Time hydrocodone Allergy Unknown Itching Verified 11/30/24 12:34 Vital Signs Vital Signs - 24 hr 11/30/24 12:37 Temperature 98.5 F Pulse Rate 72 Respiratory Rate 18 Blood Pressure 106/75 Pulse Oximetry 99 Oxygen Delivery Room Air Exam Const: General: comfortable and no acute distress HENMT: Face/Nose/Sinus: Normal nares present Eyes: General: appearance normal, both eyes and all related structures Neck: Neck: no JVD Resp: Auscultation: clear to auscultation bilaterally Cardio: Rate: regular rate Rhythm: regular rhythm GI: Inspection: non-distended GI Palp: Yes Soft to palpation Skin: General skin exam: normal color Neuro: Speech: normal speech Extrem: General: normal to inspection Psych: Mental Status: mental status grossly normal Assessment and Plan Assessment and plan (1) Hematochezia: Code(s): K92.1 - Melena Status: Acute Assessment and Plan: colonoscopy
[2024-11-30 14:01] VITALS: BP 102/65; PULSE 67; RESP 18; O2SAT 99
[2024-11-30 14:11] VITALS: BP 99/57; PULSE 71; RESP 18; O2SAT 99
[2024-11-30 14:21] VITALS: BP 107/70; PULSE 71; RESP 18; O2SAT 99
== END 2024-11-30 14:51 | disposition home or self-care (01) ==
PROVIDERS: Anesthesiology; PCP Internal Medicine; Referring Provider Nurse Practitioner; Visit Provider Internal Medicine Gastroenterology
PROC: 0DJD8ZZ Inspection of Lower Intestinal Tract, Via Natural or Artificial Opening Endoscopic (ICD-10-PCS; CPT 45378; principal; 2024-11-30 14:00)
DX: K64.8 Other hemorrhoids (principal); I10 Essential (primary) hypertension; D64.9 Anemia, unspecified; F41.9 Anxiety disorder, unspecified; Z98.890 Other specified postprocedural states; Z87.891 Personal history of nicotine dependence; Z80.3 Family history of malignant neoplasm of breast; Z80.1 Family history of malignant neoplasm of trachea, bronchus and lung; Z82.49 Family history of ischemic heart disease and other diseases of the circulatory system
CPT/HCPCS: 45378; J2704; J7120

== ENCOUNTER 2025-02-06 01:26 | Day surgery (SDC) | payer OTHER, SELFPAY ==
--- OUTSIDE RECORDS SUMMARY | 2012-01-18 09:45 | XMS_ITS | Continuity of Care Document ---
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 Name Role Phone Emigdio Olivo MD Unavailable Unavailable Allergies, Adverse Reactions, Alerts Substance Reaction Status Criticality No Known allergies Procedures Procedure Date Eye Exam, New Patient Eye Exam, New Patient Advance Directives Directive Yes / No Effective Date File Name Resuscitation Not Answered N/A N/A Life Support Not Answered N/A N/A Intubation Not Answered N/A N/A Antibiotics Not Answered N/A N/A IV Fluid Support Not Answered N/A N/A Tube Feed Not Answered N/A N/A Other Directive N/A N/A WARNING:The information contained in this section is historical and is provided for information only and does not constitute a legal document or any assurance that the information is still accurate. Please verify the information with the lehman of the legal document before using it for clinical purposes. Encounters Encounter Description Practice Location Reason(s) For Visit Diagnoses Date Provider Providers Copied on Encounter [facility], [address] [place] [address] [address], [place], [place], [id number], [place] tel:[phone] SEC Jg DC Professional CORNEAL DSDR CONTCT LENSCORNEAL PANNUS 2 Geovani Beal. [address] [facility] [place], [place], [id number], [place]. tel:[phone] [facility], [address], [place], [place], [id number], [place] tel:[phone] [facility] In History[facility] Center No Information [address] Ramya Wyatt. [address] [facility] [address], [place], [address], [place]. tel:[phone] Family History Family Member Type Diagnosis Age At Onset Paternal grandmother Problem (finding) Diabetes mellit us Problem (finding) Maternal grandmother Problem (finding) glaucoma Payers Payer name Insurance type Covered alliance party ID Authorpiloa tidevorah(s) Medicaid [facility]LY [facility] [id number] Social History Type Description Quantity Date Captured Comments Alcohol Use Details Caffeine Use Details Tobacco Use Status Smoking Status No Information Sex Female Chief Complaint And Reason For Visit No Information Reason For Referral Reason For Referral No Information History Of Present Illness Encounter Date Complaint History Of Prese nt Illness No Information Functional Status Date Functional Assessmen t No Information Instructions Date Instruction Additional Infor mation - PRN 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 Recommends not wearing contacts over night, if still issues then replace more frequent. Gave pt Mrx. Will monitor. Related to CORNEAL PANNUS Assessments Type Assessment Date No Information Patient Care Teams Name Effective Dates (start - stop) Status Members No Information
--- NOTE | 2025-01-23 11:02 | PC.NURSE ---
[facility] has started construction of its new state of the art ER which will open Spring 2026. With this, we anticipate parking may be a challenge for some our surgical patients and families. Parking spaces are limited but are available for all Surgical, obstetrics, and ER patients sharing this lot. If you arrive and find you are having a hard time finding a parking space, please note that we understand the challenges, please drive around the hospital and park near Hospital Entrance 1. When you enter this entrance, you can ask a volunteer to direct or take you back to the surgical waiting area to check in. We appreciate everyone?s understanding of these expected challenges while we build for your future. Report to the Outpatient Waiting Room, entrance under the green pavilion located off [address], at time _6:00am on date _02/06/2025 . Planned Procedure Time: ___7:30am .? Time changes happen often and if your time is changed the preop area will call you the afternoon before. - You and your visitor will be asked to self-screen and do not enter if you have any COVID symptoms. Please call surgeon if you need to reschedule. - A mask is optional within the hospital at this time. Patients may have clear liquids (water, carbonated beverages, clear teas, apple juice) until 3 hours prior to surgery with a maximum of 20 ounces. STOP AT 4:30AM - No food from midnight until time of surgery and no smoking, or chewing tobacco (or any form of nicotine). No chewing gum, candy or mints. - Take only the following medications with a SIP of water on the morning of surgery: Prozac DO NOT STOP ANY OF YOUR OTHER PRESCRIPTION MEDICATIONS PRIOR TO SURGERY EXCEPT THE FOLLOWING Hold all vitamins and supplements for 3 days per anesthesiologist. n/a Please no make-up, nail qatari, hairspray, perfume, deodorant, or body powder the day of surgery.? No jewelry (including any body piercings) or valuables the day of surgery, leave them at home.? Please take a shower or bath the night before, or the morning of, surgery with an antibacterial soap.? Wear comfortable, loose fitting clothing.? - Jewelry must be removed prior to entering the operating room.? Rings and piercings that are not removed may be cut off. - The hospital will not accept responsibility for valuables.? - Please leave all valuables, including medications, at home the day of surgery. If you are going home after surgery, a licensed production truck driver must drive you home.? - NO public transportation without another adult if you receive anesthesia. - We recommend that an adult stay with you for 24 hours following discharge. - We also recommend that you do not drive, make important decision, drink alcoholic beverages, or take any drugs that were not prescribed by your health care provider for at least 24 hours after your discharge time. Follow any additional instructions given to you from your surgeon. Telephone instructions given to _patient/Tran and asked if any additional questions and then verbalized understanding. Patient advised to call surgeon office or pre surgery nurse liaison [phone] if any additional questions.
[2025-01-23 11:08] VITALS: BMI 26.6
[2025-02-06] VITALS (8 sets, daily range): BP systolic 99–128; BP diastolic 57–72; PULSE 60–85; RESP 10–16; TEMP 36.3–36.9; O2SAT 98–100
--- OUTSIDE RECORDS SUMMARY | 2025-02-06 01:30 | XMS_ITS | Clinical Summary ---
Author Organization [facility] [employer] Address [facility] [facility] [place] [address] Care Team Providers Care Spreader Operator Name Role Phone Pema Patel PA-C Primary Care Provider [phone] Sarah Jarrell MD Unavailable [phone] Source Comments [facility],non-owned Affiliates and Associated Physician Practices is amultiple site organization consisting of ambulatory clinics and hospital sitesin [place], [place], [place] and [place]. This disclosure is being madepursuant to the Care Everywhere program and may not contain all information available regarding this patient. Last updated 18.[facility] Allergies No known active allergies Medications * [...] fluticasone propionate (Flonase) 50 MCG/ACT nasal spray Harmony 2 (two) sprays into each nostril once [...] on file Legal Sex Female 5:48 AM CHANNEL EXECUTIVE Gender Identity Not on file Sexual Orientation Not on file Last Filed Vital Signs Vital Sign Reading Time Taken Comments Blood Pressure 106/68 06/23/2023 1:49 PM CHANNEL EXECUTIVE Pulse 78 06/23/2023 1:49 PM CHANNEL EXECUTIVE Temperature 36.7 C (98 F) 06/23/2023 1:49 PM CHANNEL EXECUTIVE Respiratory Rate 17 03/06/2018 10:19 AM CHANNEL EXECUTIVE Oxygen Saturation 99% 05/03/2023 12:53 PM CHANNEL EXECUTIVE Inhaled Oxygen Concentration - - Weight 82.6 kg (182 lb) 06/23/2023 1:49 PM CHANNEL EXECUTIVE Height 170.2 cm (5' 7) 06/23/2023 1:49 PM CHANNEL EXECUTIVE Body Mass Index 28.51 06/23/2023 1:49 PM CHANNEL EXECUTIVE Plan of Treatment Health Maintenance Due Date Last Done Comments HIV SCREENING 11/27/2002 HEPATITIS C SCREENING 11/23/2005 DTAP/TDAP/TD VACCINES (1 - Tdap) 11/27/2006 HEPATITIS B VACCINE (1 of 3 - 19+ 3-dose series) 11/27/2006 PAP SMEAR 11/27/2008 HPV VACCINE (1 - 3-dose SCDM series) 11/27/2014 DEPRESSION SCREENING 05/02/2024 07/29/2023 COVID-19 VACCINE (1 - season) 2024 INFLUENZA VACCINE (#1) 2024 , 03/11/2022, 02/01/2022, [...] patient's age to complete this topic Insurance [facility] MEDICAID - OUT OF STATE [facility] Care Teams Spreader Operator Relationship Specialty Start Date End Date Pema Patel PA-C [address] [address] PCP - General Physician Combine Operator 08/26/21 Sarah Jarrell MD [address] [place] [address] Physician Obstetrics and Gynecology 08/26/21
--- OUTSIDE RECORDS SUMMARY | 2025-02-06 01:30 | XMS_ITS | Clinical Summary ---
Author Organization [facility] Address [address] [place] [address] Phone Care Team Providers Care Actuary Clerk Name Role Phone Dulce Boss MD Primary Care Provider [phone] Allergies No known active allergies Medications azithromycin [...] Comments Blood Pressure 106/62 03/22/2017 6:00 PM APPLICATION TECHNICAL DESIGNER Pulse 65 03/22/2017 6:15 PM APPLICATION TECHNICAL DESIGNER Temperature 37.2 C (98.9 F) 03/22/2017 6:27 PM APPLICATION TECHNICAL DESIGNER Respiratory Rate 18 03/22/2017 4:59 PM APPLICATION TECHNICAL DESIGNER Oxygen Saturation 100% 03/22/2017 6:15 PM APPLICATION TECHNICAL DESIGNER Inhaled Oxygen Concentration - - Weight 72.6 kg (160 lb) 03/22/2017 4:59 PM APPLICATION TECHNICAL DESIGNER Height 170.2 cm (5' 7) 03/22/2017 4:59 PM APPLICATION TECHNICAL DESIGNER Body Mass Index 25.06 03/22/2017 4:59 PM APPLICATION TECHNICAL DESIGNER Plan of Treatment Health Maintenance Due Date Last Done Comments Hepatitis C Virus (HCV) Screening 1985 Pap Smear 11/27/2008 Human Papillomavirus (HPV) Immunization (1 - 3-dose SCDM series) 11/27/2014 Cervical Cancer Screening (CCS) 11/27/2017 HPV/Cotest 11/27/2017 Influenza Immunization (#1) 12/31/202401/01, 01/16/2016, 07/04/2015 SARS-COV-2 Immunization ( season) 2024 [...] age to complete this topic Insurance MEDICAID [facility] Care Teams Actuary Clerk Relationship Specialty Start Date End Date Dulce Bsos MD [address] [place] [id number] PCP - General 04/02/15
[2025-02-06] MEDS: LACTATED RINGERS 1,000 ML 30 ML IV CONT (06:45)
[2025-02-06] MEDS: KETOROLAC 15 MG/ML VIAL (*BKC) IV PUSH (06:50)
[2025-02-06] MEDS: ACETAMINOPHEN 500 MG TABLET 1000 MG PO (06:50)
--- NOTE | 2025-02-06 07:07 | P.PNAN_ITS ---
Anes - Initial Pre Proc Eval Procedure: Operation Date: 02/06/25 07:30 Proposed Procedures p Laparoscopic Right Ovarian Cystectomy, Bilateral Laparoscopic Salpingectomy - Chevy York MD Date/Time: 02/06/25 07:07 Surgeon: Chevy York MD Pre Op Diagnosis: Cyst of Right Ovary, Desires Sterilization Patient Data Age: 39 Gender: F Height: 1.68 m Weight: 75 kg Last Vital Signs Temp 36.9 C 02/06/25 06:45 Pulse 65 02/06/25 06:45 Resp 16 02/06/25 06:45 BP 105/71 02/06/25 06:45 Pulse Ox 100 02/06/25 06:45 O2 Del Method Room Air 02/06/25 06:45 Allergies Allergy/AdvReac Type Severity Reaction Status Date / Time No Known Allergies Allergy Verified 02/06/25 06:48 Home Medications ?Medication ?Instructions ?Recorded ?Confirmed ?Type fluoxetine 10 mg tablet 10 mg PO DAILY #90 tabs 04/0 06/2601/23/25 Rx fluoxetine 20 mg capsule 20 mg PO DAILY #90 caps 04/0 07/2401/23/25 Rx Patient hx anesthesia problems: post op nausea/vomiting Family hx anesthesia problems: none Results Review: All pre-operative results and documents have been reviewed as part of the pre- operative evaluation. [facility] Past Medical History Medical History Right calf pain Anxiety Anemia DUGAN (dyspnea on exertion) Essential hypertension Surgical History Surgical History Hx of arthroscopy of right knee 11/09/2022 History of tonsillectomy Family History Family History Mother Family history of migraine headaches Hypertension Father Family history of hepatitis Grandparent Breast cancer Heart disease Cerebrovascular accident Lung cancer Other Diabetes mellitus Family history of cardiovascular disease Family history of cataracts Family history of obesity Social History Social History Smoking packs per day: 0.5 Smoking cigarettes per day: 10.0 Years smoked: 2 Smoking pack-years: 1.00 Smoking status: Never smoker Tobacco type: cigarettes Second hand tobacco smoke exposure: No Alcohol intake: never Substance use: never Substance use type: does not use Last use: 2012 Do You Feel Safe in your Home?: Yes Lack of Transportation: No Lack of Food: Never True Current Housing: I Have Housing Concerned About Future Housing: No Difficulty Paying Gas/Electric Bills: No Difficulty Paying for Meds: No Currently Unemployed: No Education: Associate Degree Difficulty w/ Childcare or Family Care: No Living arrangements: with family Gender identity (if verbalized by the patient): Female Sexual Orientation (if Verbalized by the Patient): Straight or Heterosexual Spiritual care concerns: No Anes - Eval Final PreProcedure Day of Procedure 02/06/25 07:07 Patient weight: overweight Heart: regular rate and rhythm Lungs: clear to auscultation Airway: Mallampati scale class II Neurological: alert and oriented Last oral intake: >/= 8 hours ASA classification: II Emergent: no Anesthetic plan: proceed Anesthesia type and monitoring: general ETT and standard monitoring Results Review: All pre-operative results and documents have been reviewed as part of the pre- operative evaluation. Informed Consent: The patient's anesthetic plan and its attendant risks and benefits were discussed with the patient/family/POA. Questions were solicited and answers provided to the satisfaction of the patient/family/POA.
[2025-02-06] MEDS: SCOPOLAMINE 1 MG PATCH 1 PATCH TRANSDERM (07:15)
--- NOTE | 2025-02-06 07:18 | WPDHPUPDATE1 ---
History and Physical Update Update Date/Time: 02/06/25 07:18 History and Physical has been reviewed, including an updated exam of the patient. There are NO changes in the patient's condition. Risks, benefits, and alternatives have been discussed and questions answered. Patient agrees to proceed with procedure.
--- NOTE | 2025-02-06 07:19 | PM.IMHP ---
H&P: HPI History of Present Illness Date/Time: 02/06/25 07:19 Chief Complaint: Right ovarian cyst Narrative: This patient is a 39-year-old female with right ovarian cyst and unwanted fertility. Agreed to perform a laparoscopic bilateral salpingectomy and right ovarian cystectomy. She understands risks, benefits, and alternatives. She has completed informed consent process and is ready to proceed. The patient understands the details of the procedure. The procedure has been explained in detail. She understands the risks. She understands that injuries may occur that result in hospitalization, more surgery, and severe illness. She understands risk of hemorrhage and infection. She denies any chest pain or shortness of breath. She denies any nausea, vomiting, fever, chills. Review of Systems Review of Systems: All systems reviewed & are unremarkable except as noted in HPI and below Constitutional: Constitutional: Denies chills, Denies fatigue, Denies fever(s) and Denies weakness Eyes: Eyes: Denies blurry vision, Denies change in vision, Denies loss of peripheral vision, Denies loss of vision, Denies other visual disturbances and Denies eye pain ENT: Denies vertigo, Denies dizziness, Denies hearing loss, Denies mouth pain, Denies nasal obstruction, Denies neck mass and Denies neck pain Cardiovascular: Cardiovascular: Denies chest pain, Denies diaphoresis, Denies syncope, Denies leg edema and Denies dyspnea Respiratory: Respiratory: Denies chest congestion, Denies cough, Denies hemoptysis, Denies dyspnea and Denies wheezing Gastrointestinal: Gastrointestinal: Denies abdominal pain, Denies constipation, Denies diarrhea, Denies nausea and Denies vomiting Genitourinary: Genitourinary: Denies hematuria, Denies change in libido, Denies nocturia, Denies genital lesions, Denies flank pain and Denies urinary urgency Musculoskeletal: Musculoskeletal: Denies abnormal gait, Denies back pain, Denies myalgias, Denies arthralgias, Denies joint swelling, Denies muscle weakness and Denies neck pain Integumentary/Breasts: Skin/Breast: Denies swelling, Denies breast pain, Denies breast mass, Denies dry skin, Denies nipple discharge, Denies unusual bruising and Denies jaundice Neurologic: Denies Neuro-related abnormal movements, Denies Abnormal speech present, Denies abnormal gait, Denies behavioral changes, Denies confusion, Denies vertigo, Denies dizziness, Denies syncope, Denies loss of vision, Denies memory loss, Denies convulsions and Denies weakness Psychiatric: Psychiatric: Denies abnormal sleep pattern, Denies behavioral changes, Denies change in libido, Denies confusion, Denies depression, Denies anhedonia and Denies memory loss Endocrine: Endocrine: Reports no additional endocrine complaints, Denies change in libido and Denies fatigue Hematologic/Lymphatic: Hematologic/Lymphatic: Reports no additional hematologic/lymphatic complaints Allergic/Immunologic: Allergic/Immunologic: Reports no additional allergic/immunologic complaints and Denies wheezing PMFSH Past Medical History Medical History Right calf pain Anxiety Anemia DUGAN (dyspnea on exertion) Essential hypertension Surgical History Surgical History Hx of arthroscopy of right knee 11/09/2022 History of tonsillectomy Family History Family History Mother Family history of migraine headaches Hypertension Father Family history of hepatitis Grandparent Breast cancer Heart disease Cerebrovascular accident Lung cancer Other Diabetes mellitus Family history of cardiovascular disease Family history of cataracts Family history of obesity Social History Social History Smoking packs per day: 0.5 Smoking cigarettes per day: 10.0 Years smoked: 2 Smoking pack-years: 1.00 Smoking status: Never smoker Tobacco type: cigarettes Second hand tobacco smoke exposure: No Alcohol intake: never Substance use: never Substance use type: does not use Last use: 2011 Do You Feel Safe in your Home?: Yes Lack of Transportation: No Lack of Food: Never True Current Housing: I Have Housing Concerned About Future Housing: No Difficulty Paying Gas/Electric Bills: No Difficulty Paying for Meds: No Currently Unemployed: No Education: Associate Degree Difficulty w/ Childcare or Family Care: No Living arrangements: with family Gender identity (if verbalized by the patient): Female Sexual Orientation (if Verbalized by the Patient): Straight or Heterosexual Spiritual care concerns: No Meds Home Medications and Allergies Home Medications ?Medication ?Instructions ?Recorded ?Confirmed ?Type fluoxetine 10 mg tablet 10 mg PO DAILY #90 tabs 08/01/24 01/23/25 Rx fluoxetine 20 mg capsule 20 mg PO DAILY #90 caps 08/02/24 01/23/25 Rx Allergies Allergy/AdvReac Type Severity Reaction Status Date / Time No Known Allergies Allergy Verified 02/06/25 06:48 Vital Signs Vital Signs - 24 hr 02/06/25 06:45 Temperature 98.5 F Pulse Rate 65 Respiratory Rate 16 Blood Pressure 105/71 Pulse Oximetry 100 Oxygen Delivery Room Air Exam Const: General: cooperative, healthy appearing, comfortable and no acute distress Orientation/consciousness: oriented to person, oriented to place and oriented to time HENMT: Head: normal to inspection Ears: external ears normal Face/Nose/Sinus: Normal external nose present and normal facial exam Face and sinus: normal facial exam Eyes: General: appearance normal, both eyes and all related structures Neck: Neck: normal visual inspection, trachea midline and supple Resp: Auscultation: clear to auscultation bilaterally, no crackles, no rales, no rhonchi and no wheezes Cardio: Rate: regular rate Rhythm: regular rhythm Heart sounds: no click, no murmurs and no rubs GI: GI Palp: No abdominal tenderness, No Soft to palpation, No Tenderness to palpation present (GI) and No Palpable mass present Auscultation: normal bowel sounds Skin: General skin exam: normal color and no rashes or lesions noted Neuro: General: oriented to person, oriented to place and oriented to time Extrem: General: normal to inspection, no joint enlargement, no clubbing, cyanosis or edema, no pedal edema and no calf tenderness Psych: Appearance: grossly normal Mental Status: mental status grossly normal Speech and movement: Normal speech and movement present Assessment and Plan Assessment and plan (1) Ovarian cyst: Code(s): N83.209 - Unspecified ovarian cyst, unspecified side Status: Acute (2) Unwanted fertility: Code(s): Z30.09 - Encounter for other general counseling and advice on contraception Status: Acute Plan This patient is a 39-year-old female with right ovarian cyst and unwanted fertility. Agreed to perform a laparoscopic bilateral salpingectomy and right ovarian cystectomy. She understands risks, benefits, and alternatives. She has completed informed consent process and is ready to proceed.
--- NOTE | 2025-02-06 07:57 | S_PTH ---
PATIENT: Tran Rice LOC: [facility] U#:[id number] AGE/SX: 39/F ROOM: RE02/06/[address]: Chevy York MD : 1985 BED: DIS: 02/06/2025 SPEC #: [id number] RECD: 02/06/25 10:54 STATUS: URBANO REQ #: [id number] JUNIOR: 02/06/25 07:[address]: Chevy York DEPT: [facility] Surgical RECD BY: Marzena Soto ENTERED: 02/06/25 10:54 SP TYPE: Surgical OTHR DR: Abiodun Bustamante DO Tissues: A - Fallopian Tube Bilateral Procedures: Gross and Microscopic Level 2 Hematoxylin and Eosin Stain
--- NOTE | 2025-02-06 08:16 | W.PM.PROC2 ---
Procedure Note - Detailed Date of Procedure 02/06/25 Pre-op Diagnosis Cyst of Right Ovary, Desires Sterilization Post-op Diagnosis Same Procedure Performed Laparoscopic bilateral salpingectomy a and right ovarian cystectomy Surgeon Chevy York MD Anesthesia General Indications Unwanted fertility Findings Normal pelvic anatomy, small right ovarian cyst, 2 small right paratubal cyst Description of Procedure The patient was taken the operating room. She was prepped and draped in the dorsal lithotomy position after induction of general anesthesia. A 5 mm skin incision was made in the left upper quadrant of the abdominal skin. A 5 mm trocar was inserted the intra-abdominal cavity under direct visualization of the scope. Pneumoperitoneum was achieved. A 5 mm trocar was inserted in the left lower quadrant identical fashion. A 5 mm infraumbilical trocar was inserted in identical fashion as well. The bilateral fallopian tubes were removed. This was done by using a LigaSure cautery. The mesosalpinx adjacent to the tube was cauterized transected with LigaSure. This was initiated in the area the ovary and in a stepwise fashion moved medially to the area of the cornu of the uterus. Once there the fallopian tube was cauterized and transected. This was done in identical fashion on each side. The fallopian tubes were taken out through the left lower quadrant trocar site. Ovarian cyst on the right ovary was lysed and cauterized. Two paratubal cysts on the right fallopian tube removed with removal of the fallopian tube. The pneumoperitoneum was reduced. The trocars removed. The skin was closed with subcuticular 4 Monocryl and covered with Dermabond. She was taken to cover stable condition. Sponge lap and needle counts were correct x2. Estimated Blood Loss 5 Drains No Packing No Pathology Yes Complications No immediate complications Condition Stable Disposition PACU
== END 2025-02-06 09:48 | disposition home or self-care (01) ==
PROVIDERS: PCP Internal Medicine; Visit Provider Obstetrics & Gynecology
PROC: (CPT 49320; principal; 2025-02-06 07:30)
DX: Z30.2 Encounter for sterilization (principal); N83.8 Other noninflammatory disorders of ovary, fallopian tube and broad ligament; G89.18 Other acute postprocedural pain; D64.9 Anemia, unspecified; I10 Essential (primary) hypertension; F41.9 Anxiety disorder, unspecified; Z98.890 Other specified postprocedural states; Z80.3 Family history of malignant neoplasm of breast; Z80.1 Family history of malignant neoplasm of trachea, bronchus and lung; Z82.49 Family history of ischemic heart disease and other diseases of the circulatory system
CPT/HCPCS: 58661; 58662; 88302; A9270; J1100; J1200; J1885; J2003; J2250; J2405; J2704; J3010; J7030; J7120

== ENCOUNTER 2025-04-23 15:32 | Outpatient (CLI) | payer OTHER, SELFPAY ==
--- OUTSIDE RECORDS SUMMARY | 2025-04-23 15:35 | XMS_ITS | Clinical Summary ---
Author Organization [facility] Address [address] [place] [address] Phone Care Team Providers Care Geospatial Technologist Name Role Phone Dulce Boss MD Primary Care Provider [phone] Allergies No known active allergies Medications azithromycin [...] Comments Blood Pressure 106/62 03/22/2017 6:00 PM CONCRETE CARPENTER Pulse 65 03/22/2017 6:15 PM CONCRETE CARPENTER Temperature 37.2 C (98.9 F) 03/22/2017 6:27 PM CONCRETE CARPENTER Respiratory Rate 18 03/22/2017 4:59 PM CONCRETE CARPENTER Oxygen Saturation 100% 03/22/2017 6:15 PM CONCRETE CARPENTER Inhaled Oxygen Concentration - - Weight 72.6 kg (160 lb) 03/22/2017 4:59 PM CONCRETE CARPENTER Height 170.2 cm (5' 7) 03/22/2017 4:59 PM CONCRETE CARPENTER Body Mass Index 25.06 03/22/2017 4:59 PM CONCRETE CARPENTER Plan of Treatment Health Maintenance Due Date Last Done Comments Hepatitis C Virus (HCV) Screening 1985 Varicella Immunization (1 of 2 - 13+ 2-dose series) 11/27/2000 Pap Smear 11/27/2008 Cervical Cancer Screening (CCS) 11/27/2017 HPV/Cotest 11/27/2017 Influenza Immunization (#1) 12/31/202401/01, 01/16/2016, 07/04/2015 SARS-COV-2 Immunization ( season) 2024 Respiratory Syncytial Virus (RSV) Immunization (Adult) (1 - 1-dose 75+ series) 11/27/2062 Hepatitis B Immunization Completed 016, 02/16/2010, 02/15/2002, Additional history exists DTaP/Tdap/Td Immunization Discontinued 01/20/2018, TdaP Immunization Completed 01/20/2018, 02/12/2010 Human Papillomavirus (HPV) Immunization (No Doses Required) Completed Meningococcal Immunization (ACWY) Aged Out No longer eligible based on patient's age to complete this topic Pneumococcal Immunization Combined Aged Out No longer eligible based on patient's age to complete this topic Rotavirus Immunization Aged Out No lo nger eligible based on patient's age to complete this topic Insurance MEDICAID [facility] [employer] Care Teams Geospatial Technologist Relationship Specialty Start Date End Date Dulce Boss MD [address] [place] [address] PCP - General 04/02/15
--- OUTSIDE RECORDS SUMMARY | 2025-04-23 15:35 | XMS_ITS | Clinical Summary ---
Author Organization [facility] [employer] Address [facility] [facility] [place] [address] Care Team Providers Care Room Inspector Name Role Phone Pema Patel PA-C Primary Care Provider [phone] Sarah Jarrell MD Unavailable Source Comments [facility],non-owned Affiliates and Associated Physician Practices is amultiple site organization consisting of ambulatory clinics and hospital sitesin [place], [place], [place] and [place]. This disclosure is being madepursuant to the Care Everywhere program and may not contain all information available regarding this patient. Last updated 18.[facility] Allergies No known active allergies Medications * [...] fluticasone propionate (Flonase) 50 MCG/ACT nasal spray Bangs 2 (two) sprays into each nostril once [...] on file Legal Sex Female 5:48 AM REFUSE COLLECTOR SUPERVISOR Gender Identity Not on file Sexual Orientation Not on file Last Filed Vital Signs Vital Sign Reading Time Taken Comments Blood Pressure 106/68 06/23/2023 1:49 PM REFUSE COLLECTOR SUPERVISOR Pulse 78 06/23/2023 1:49 PM REFUSE COLLECTOR SUPERVISOR Temperature 36.7 C (98 F) 06/23/2023 1:49 PM REFUSE COLLECTOR SUPERVISOR Respiratory Rate 17 03/06/2018 10:19 AM REFUSE COLLECTOR SUPERVISOR Oxygen Saturation 99% 05/03/2023 12:53 PM REFUSE COLLECTOR SUPERVISOR Inhaled Oxygen Concentration - - Weight 82.6 kg (182 lb) 06/23/2023 1:49 PM REFUSE COLLECTOR SUPERVISOR Height 170.2 cm (5' 7) 06/23/2023 1:49 PM REFUSE COLLECTOR SUPERVISOR Body Mass Index 28.51 06/23/2023 1:49 PM REFUSE COLLECTOR SUPERVISOR Plan of Treatment Health Maintenance Due Date [...] patient's age to complete this topic Insurance [facility] MEDICAID - OUT OF STATE [facility] SELF PAY NO INSURANCE Member Subscriber Plan / Payer (Ef fective for All Dates) Name:Kenzie Rice Member ID:Not on file Relation to Subscriber:Not on file Name:KENZIE RICE Subscriber ID:Not on file (Home) Address: [address] [place] [address] Payer ID:Not on file Group ID:Not on file Type:Self Pay Address: [place], [place] [facility] Care Teams Room Inspector Relationship Specialty Start Date End Date Pema Patel PA-C [address] [address] PCP - General Physician Public Policy Analyst 08/26/21 Sarah Jarrell MD [address] [place], [place] [id number] Physician Obstetrics and Gynecology 08/26/21
--- OUTSIDE RECORDS SUMMARY | 2025-04-23 15:35 | XMS_ITS | Clinical Summary ---
Author Organization [facility] Address [address] [place] [address] Care Team Providers Care Infrastructure Consultant Name Role Phone Pema Patel Primary Care Provider [phone] Allergies No known active allergies Medications escitalopram [...] 06/05/2023 Assessment & Plan (06/05/2023 10:32 PM [facility]): Patient's symptoms seem most consistent with vertigo. [...] 06/05/2023 Assessment & Plan (06/05/2023 10:31 PM [facility]): Check labs Moderate episode of recurrent major depressive d isorder 06/05/2023 Assessment & Plan (06/05/2023 10:25 PM [facility]): Continue Lexapro 20 Spotting during 04/11/2023 Vaginal discharge 04/11/2023 Arthralgia of right knee 03/07/2023 Rash 11/15/2022 Vitamin B12 deficiency (non anemic) 08/02/2022 Assessment & Plan (06/05/2023 10:13 PM [facility]): Supplement Electrocardiogram abnormal 07/25/2022 Essential hypertension 07/25/2022 Assessment & Plan (06/05/2023 10:13 PM [facility]): Bp is stable/in acceptable range for any co-morbidities. Encouraged to limit sodium intake and exercise for weight control. Has been managed without medication. Continue to monitor closely Generalized anxiety disorder 07/25/2022 Intermittent palpitations 07/25/2022 Vitamin D deficiency 07/25/2022 Assessment & Plan (06/05/2023 10:13 PM [facility]): Supplement Acute upper respiratory infection 06/24/2022 Positive antinuclear antibody 06/06/2022 Cobalamin deficiency 06/06/2022 Leukopenia 05/26/2022 Flu vaccine need 03/14/2022 Assessment & Plan (03/14/2022 3:19 PM [facility]): Updated in the office today Easy bruising [...] 10/25/2021 Assessment & Plan (03/14/2022 3:17 PM [facility]): Continue with Lexapro as symptoms are stable. [...] 08/15/2021 Assessment & Plan (03/14/2022 3:17 PM [facility]): Patient still has had presyncopal type symptoms. Was referred to bilingual call center representative at her last visit but was not able to keep that appointment up in [facility] due to stressors at home. Will make referral to the [facility]iology for further [...] She would like to follow-up with a bilingual call center representative that her mother is seen up in [facility]. Provided a referral. Patient is going to [...] 08/14/2021 Assessment & Plan (06/05/2023 10:11 PM [facility]): Weight/BMI is in healthy range. Continue healthy lifestyle to maintain. Assessment & Plan (03/14/2022 3:16 PM [facility]): Weight/BMI is in healthy range. Continue healthy [...] 08/23/2020 Assessment & Plan (06/05/2023 10:11 PM [facility]): Probably multifactorial. Check labs and followup to [...] unspecified Assessment & Plan (06/05/2023 10:11 PM [facility]): Stressed importance of eating small meals multiple [...] onset of sxs. Check COVID/FLU test thru [facility] collection site in [place]. 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 Detection and Quantitation by Real-Time Reverse Financial Aid Administrator-PCR.Current Interpretive data was last revised on 2016. Blood specimen (specimen) 08/17/2017 10:28 AM CDT 08/17/2017 11:38 AM CDT Narrative CORINNE SARGENT - 08/17/2017 2:17 PM CDT Cici Levine NP LAB MICROBIOLOGY - GENERAL ORDERABLES Edited Result - Final [facility] Department [place] [address] from Last 3 Months or Most Recently Relevant to Health Maintenance Insurance Care Teams Infrastructure Consultant Relationship Specialty Start Date End Date Pema Patel PA [address] [place] [address] PCP - General Internal Medicine 05/25/23
[2025-04-23 18:25] LABS: Hematocrit 37.6 % (37.0-47.0); Hemoglobin 12.5 g/dL (12.0-15.0); Immature Granulocyte Percent A 0.1 % (0-0.5); Lymphocytes Absolute Auto 2.52 K/mm3 (0.9-3.2); Mean Corpuscular HGB Conc 33.2 g/dl (32-36); Mean Corpuscular Hemoglobin 29.3 pg (26-34); Mean Corpuscular Volume 88.1 fl (80-100); Nucleated Red Blood Cells Absolute Auto 0.000 K/mm3 (0.0-0.012); Nucleated Red Blood Cells Perc 0.0 % (0.0-0.2); Platelet Count Result 317 k/mm3 (150-375); Red Blood Count 4.27 M/mm3 (4.2-5.4); White Blood Count 6.9 K/mm3 (4.5-10.0)
[2025-04-23 18:42] LABS: Alanine Aminotransferase 16 U/L (6-35); Albumin Level 4.1 g/dL (3.5-5.1); Alkaline Phosphatase 59 U/L (38-126); Anion Gap 5 mmol/L (4-12); Aspartate Amino Transferase 30 U/L (14-36); Bilirubin,Total 0.4 mg/dL (0.2-1.3); Blood Urea Nitrogen 6 mg/dL (7-17); Calcium 8.7 mg/dL (8.4-10.2); Carbon Dioxide 26 mmol/L (22-30); Chloride 106 mmol/L (98-107); Estimated Glomerular Filt Rate > 60; Glucose 85 mg/dL (65-110); Potassium 4.1 mmol/L (3.4-5.0); Sodium 137 mmol/L (137-145); Total Protein 7.1 g/dL (6.3-8.2)
[2025-04-23 18:54] LABS: Hemoglobin A1C 4.5 % (<5.7)
[2025-04-23 19:18] LABS: Thyroid Stimulating Hormone 0.956 uIU/mL (0.465-4.680)
[2025-04-23 19:37] LABS: Vitamin B12 269.0 pg/mL (239-931)
== END 2025-04-23 15:33 | disposition home or self-care (01) ==
LOC: ANHGOSHLAB 15:33
PROVIDERS: PCP Internal Medicine; Visit Provider Clinical Nurse Specialist
DX: R51.9 Headache, unspecified (principal); I10 Essential (primary) hypertension; D64.9 Anemia, unspecified; E16.2 Hypoglycemia, unspecified
CPT/HCPCS: 36415; 80053; 82607; 83036; 84443; 85025